=== PATIENT | female | born 1955 | race Caucasian/White ===

== ENCOUNTER 2022-01-04 15:08 | Outpatient (RCR) | payer MEDICARE, MEDICAID, SELFPAY | END 2022-01-04 15:10 | disposition home or self-care (01) | LOC: OT 15:08 | PROVIDERS: PCP Nurse Practitioner Family; Visit Provider Nurse Practitioner Family | DX: S62.102S Fracture of unspecified carpal bone, left wrist, sequela (principal) | CPT/HCPCS: 97166 ==

== ENCOUNTER → 2022-01-24 15:06 | Outpatient (CLI) | payer MEDICARE, MEDICAID, SELFPAY ==
--- NOTE | 2022-01-24 15:32 | CA_ITS ---
APPROVED REPORT EXAM: Comprehensive 2D, Doppler, and color-flow Echocardiogram Color Matcher: Lizzy Jimenez RT(R) Ht: 5 ft 2 in Wt: 210lbs BSA: 1.95 BP: 150/70 mmHg Indications: atypical angina, dyspnea, cp, COPD, smoker, palpitations, HTN, DM, SOB, ABN EKG, dizziness, hx DVT, near syncope 2D Dimensions LVOT 2.06 cm (M/F) 1.5-2.5 LA Volume 40.60 mL LA Volume Index 20.82 mL/m2 (M/F) 16-34 M-Mode Dimensions RVDd 2.27 cm (0.9-2.6) LA Diam 3.49 cm (1.9-4.0) LVDd 4.98 cm (3.5-5.7) Ao Diam 3.19 cm (2.0-3.7) LVDs 3.97 cm (3.5-5.7) IVSd 1.36 cm (0.6-1.1) PWd 1.42 cm (0.6-1.1) EF (Teich) 41.20% FS 20.30% EDV (Teich) 117.10 mL ESV (Teich) 68.80 mL Left Ventricle Left atrium is mildly enlarged, left ventricle is normal size, mild concentric left ventricular hypertrophy, estimated ejection fraction 55% with no regional wall motion abnormality, diastolic parameters are inconclusive. Right Ventricle Right atrium and right ventricle are mildly enlarged with normal contractility. Aortic Valve Aortic valve is thickened and calcified without aortic stenosis or aortic insufficiency. Mitral Valve Mitral valve has mitral annular calcification, there is no mitral stenosis, there is mild mitral regurgitation. Tricuspid Valve Tricuspid valve is grossly normal, there is mild tricuspid regurgitation, tricuspid regurgitation jet velocity is inadequate for calculation of the right ventricular systolic pressure. Pulmonic Valve Pulmonic valve is poorly visualized. Great Vessels Aortic root is normal size. Inferior vena cava is poorly visualized. Pericardium No significant pericardial effusion noted. Conclusion 1. Mild biatrial enlargement, normal left ventricular size, mild concentric left ventricular hypertrophy, estimated ejection fraction 55% with no regional wall motion abnormality, diastolic parameters are inconclusive. 2. Mildly enlarged right ventricle with normal contractility. 3. Mild mitral and tricuspid regurgitation. 4. No significant pericardial effusion noted. 5. Inferior vena cava is poorly visualized. Electronically signed by : Jose Day MD 01/25/2022 06:56:46
== END ==
PROVIDERS: PCP Nurse Practitioner Family; Visit Provider Nurse Practitioner Family
DX: E78.5 Hyperlipidemia, unspecified (principal); I10 Essential (primary) hypertension; I20.8 Other forms of angina pectoris; R06.00 Dyspnea, unspecified; R42 Dizziness and giddiness; R94.31 Abnormal electrocardiogram [ECG] [EKG]; Z79.01 Long term (current) use of anticoagulants; Z86.718 Personal history of other venous thrombosis and embolism
CPT/HCPCS: 93306

== ENCOUNTER → 2022-02-08 12:39 | Outpatient (CLI) | payer MEDICARE, MEDICAID, SELFPAY ==
--- NOTE | 2022-02-08 | CA_ITS ---
APPROVED REPORT Exam: Pharmacologic Technologist: Mary Amador, Ht: 5 ft 2 in Wt: 210 lbs BSA: 1.95 m2 HR: 98 bpm BP: 181/90 mmHg Rhythm: NSR, POOR R WAVE PROGRESSION, OLD SEPTAL SD Medical History Medical History: HTN, Hyperlipidemia Medications: Omeprazole,,,,, Gabapentin,,,,, Losartan,,,,, Atorvastatin,,,,, Vit D3,,,,, Zolpidem,,,,, OxYCODONE,,,,, Tizanidine,,,,, ElIQUIS,,,,, Hydroxyzine HCI,,,,, Allergies: PENICILLIN, VANCOMYCIN, PIPERACILLIN, TAZOBACTAM Cardiac Risk Factors: HTN, Hyperlipidemia Stress Test Details Test: LEXISCAN HR Resting HR: 91 bpm Max Heart Rate (APMHR): 155.950096 bpm Max HR Achieved: 111 bpm Target HR (85% APMHR): 131.942114 bpm % of APMHR: 71.61 Recovery HR: 102 bpm BP Resting BP: 181/90 mmHg Max BP: 181/90 mmHg Recovery BP: 161.0/80.0 mmHg ECG Resting ECG: NSR, POOR R WAVE PROGRESSION, OLD SEPTAL SD Clinical Exercise duration: 04:02 min Highest Stage Achieved: Stress ECG Conclusion SOA, MALAISE, MILD HEADACHE. NO CP. OCC PAC NO SIGNIFICANT CHANGES UNREMARKABLE LEXISCAN STRESS MYOVIEW IMAGES REPORTED SEPARATELY Test Summary REST 04:34 . . 91 . 181/ 90 . . Stage 1 01:00 . . 109 . . . . Stage 2 01:00 . . 105 . 157/ 68 . . Stage 3 01:00 . . 103 . 146/ 64 . . Stage 4 01:00 . . 105 . 144/ 67 . . Stage 4 01:02 . . 104 . 144/ 67 . Stop exercise at 04:02 RECOVERY 01:00 . . 104 . . . . RECOVERY 02:00 . . 104 . 155/ 75 . . RECOVERY 03:00 . . 102 . 161/ 80 . . RECOVERY 03:38 . . 101 . 161/ 80 . . Electronically signed by : Jose Day MD 02/08/2022 19:52:38
--- NOTE | 2022-02-08 12:42 | NM_ITS ---
APPROVED REPORT Exam: Nuclear Stress Test Indication: chest pain..short of breath Patient Location: Outpatient Stress Tech: Mary Amador NM Tech:Flavia Nayak ARRT, RT (R)(N) Ht: 5 ft 2 in Wt: 213 lbs Bra Size: 42c HR: 91 bpm BP: 181/90 mmHg BSA: 1.96 m2 TID: 1.17 BMI: 38.9 History: chest pain..short of breath Procedure: Patient received a 0.4 mg of intravenous Lexiscan, resting heart rate 91 bpm, resting blood pressure 181/90 mmHg, with Lexiscan maximum heart rate achived was 111 bpm which is Less than 85 % of the maximum predicted heart rate and blood pressure was 181/90 mmHg. With Lexiscan, patient denied any complaint of chest pain. patient was unable to lay on her belly for prone images Electrocardiogram Resting electrocardiogram showed sinus rhythm, with Lexiscan there is less than 1.[address] segment depression noted from the baseline EKG. The EKG portion of the Lexiscan is nondiagnostic. Cardiac Stress and Resting SPECT Images: Cardiac Stress and Resting SPECT images were obtained using technetium 99m Myoview 32.6 mCi stress and 9.81 mCi at rest. Gated SPECT for analysis of segmental wall motion and calculation of the ejection fraction also done. Cardiac stress and rest SPECT images show uniform myocardial activity without segmental perfusion abnormality, computer derived ejection fraction is 55% with no regional wall motion abnormality, right ventricle is normal size and contractility. Conclusion: 1. The EKG portion of the Lexiscan is nondiagnostic. 2. No scintigraphic evidence of reversible ischemia seen computer derived ejection fraction 55% with no regional wall motion abnormality, right ventricle is normal size and contractility. 3. Normal Lexiscan Myoview study. Electronically signed by : Jose Day MD 02/08/2022 19:57:41
== END ==
PROVIDERS: PCP Nurse Practitioner Family; Visit Provider Nurse Practitioner Family
DX: E78.5 Hyperlipidemia, unspecified (principal); I10 Essential (primary) hypertension; I20.8 Other forms of angina pectoris; R06.00 Dyspnea, unspecified; R42 Dizziness and giddiness; R94.31 Abnormal electrocardiogram [ECG] [EKG]; Z79.01 Long term (current) use of anticoagulants; Z86.718 Personal history of other venous thrombosis and embolism
CPT/HCPCS: 78452; 93017; A9502; J2785

== ENCOUNTER → 2022-05-17 11:12 | Outpatient (CLI) | payer MEDICARE, MEDICAID, SELFPAY ==
--- NOTE | 2022-05-17 11:56 | XR_ITS ---
FINAL REPORT TECHNIQUE: Chest PA & Lateral CLINICAL HISTORY: CHF, pain lt side of chest FINDINGS: 2 views of the chest were performed. The heart size is normal. The mediastinum is within normal limits. . The lungs are underinflated. There is perihilar scarring or atelectasis. There are no pleural effusions. There is no pneumothorax. The bony thorax appears intact. IMPRESSION: Perihilar scarring or atelectasis. Reviewed, Interpreted and Dictated by Edmar Paige MD Transcribed by Iglesia Duran Authenticated and [facility]
[2022-05-17 12:24] LABS: Basophils % 0.5 % (0.1-2.0); Eosinophils # 0.5 K/mm3 (0.0-0.4); Eosinophils % 6.8 % (0.1-12.0); Hematocrit 29.4 % (37.0-47.0); Hemoglobin 8.7 g/dL (12.2-16.2); Lymphocytes # 1.4 K/mm3 (0.7-4.5); Lymphocytes % 20.6 % (10-50); Mean Corpuscular HGB Conc 29.5 g/dL (31.8-35.4); Mean Corpuscular Hemoglobin 22.5 pg (27.0-31.2); Mean Corpuscular Volume 76.4 fl (81-99); Mean Platelet Volume 8.6 fl (7.4-10.4); Monocytes # 4.9 K/mm3 (0.1-1.0); Monocytes % 70.2 % (1.7-9.3); Neutrophils # 0.1 K/mm3 (1.8-7.8); Platelet Count 210 K/mm3 (142-424); Red Blood Count 3.85 M/mm3 (4.20-5.40); Red Cell Distribution Width 26.5 % (11.5-17.5)
[2022-05-17 12:27] LABS: MANUAL DIFFERENTIAL MANUAL DIFFERENTIAL (MANUAL DIFF); Neutrophils % 1.9 % (37.0-80.0)
[2022-05-17 12:31] LABS: Eosinophils % 3 % (0-3); Lymphocytes % 14 % (10-50); Monocytes % 5 % (2-9); Neutrophils % 78 % (42-76); Total Cells Counted 100
[2022-05-17 12:32] LABS: Anisocytosis 1+; Hypochromasia 1+; Microcytosis 1+; Ovalocytes 1+; Platelet Estimate Normal; Poikilocytosis 1+
== END ==
PROVIDERS: PCP Family Medicine; Visit Provider Family Medicine
DX: I50.9 Heart failure, unspecified (principal); D50.0 Iron deficiency anemia secondary to blood loss (chronic)
CPT/HCPCS: 36415; 71046; 85007; 85025

== ENCOUNTER 2022-06-07 15:00 | Outpatient (RCR) | payer MEDICARE, MEDICAID, SELFPAY | END 2022-06-07 15:05 | disposition home or self-care (01) | LOC: PT 15:00 | PROVIDERS: PCP Internal Medicine Cardiovascular Disease; Visit Provider Family Medicine | DX: L03.116 Cellulitis of left lower limb (principal); L03.115 Cellulitis of right lower limb | CPT/HCPCS: 97140; 97163; 97164 ==

== ENCOUNTER 2022-12-31 17:00 | Observation (INO) | payer MEDICARE, MEDICAID, SELFPAY ==
[2022-12-31] VITALS (13 sets, daily range): BP systolic 86–158; BP diastolic 52–92; PULSE 78–92; RESP 11–20; TEMP 36.7–37; O2SAT 87–98; BMI 35.6; BMI 36.6
--- NOTE | 2022-12-31 17:06 | ECG_ITS ---
APPROVED REPORT Exam: Resting ECG HR:82 bpm ECG Measurements Heart Rate 82 AXES [place] 164 P 62 QRSd 112 QRS -61 QT 410 T 48 QTc 449 Conclusion SINUS RHYTHM LEFT AXIS DEVIATION [QRS AXIS < -30] INCOMPLETE RIGHT BUNDLE BRANCH BLOCK [90+ ms QRS DURATION, TERMINAL R IN V1/V2, 40+ ms S IN I/aVL/V4/V5/V6] MINIMAL VOLTAGE CRITERIA FOR LVH, CONSIDER NORMAL VARIANT [MEETS CRITERIA IN ONE OF: R(aVL), S(V1), R(V5), R(V5/V6)+S(V1)] ABNORMAL ECG UNCONFIRMED REPORT Electronically signed by : Yash Nieto MD 01/02/2023 17:51:21
--- NOTE | 2022-12-31 17:23 | PC.NURSE ---
DR GUTIERREZ MADE AWARE OF B/P
[2022-12-31 17:27] LABS: POC Glucose,Bedside 154 (70-110)
--- NOTE | 2022-12-31 17:38 | XR_ITS ---
PROCEDURE INFORMATION: Exam: XR Chest Exam date and time: 12/31/2022 6:14 PM Age: 67 years old Clinical indication: Other: Weakness TECHNIQUE: Imaging protocol: Radiologic exam of the chest. Views: 1 view. COMPARISON: CR XR CHEST 2V 05/17/2022 12:00 PM FINDINGS: Lungs: Unremarkable. No consolidation. Pleural spaces: Unremarkable. No pleural effusion. No pneumothorax. Heart/Mediastinum: Unremarkable. No cardiomegaly. Bones/joints: Unremarkable. IMPRESSION: No acute findings.
[2022-12-31 17:44] LABS: Microscopic, Urine URINE MICROSCOPIC (MICROSCOPIC)
[2022-12-31 17:49] LABS: Basophils % 0.4 % (0.1-2.0); Eosinophils # 0.3 K/mm3 (0.0-0.4); Eosinophils % 3.2 % (0.1-12.0); Hematocrit 37.1 % (37.0-47.0); Hemoglobin 12.6 g/dL (12.2-16.2); Lymphocytes # 2.6 K/mm3 (0.7-4.5); Lymphocytes % 30.5 % (10-50); Mean Corpuscular HGB Conc 33.8 g/dL (31.8-35.4); Mean Corpuscular Hemoglobin 32.8 pg (27.0-31.2); Mean Corpuscular Volume 96.8 fl (81-99); Mean Platelet Volume 9.1 fl (7.4-10.4); Monocytes # 4.9 K/mm3 (0.1-1.0); Monocytes % 58.4 % (1.7-9.3); Neutrophils # 0.6 K/mm3 (1.8-7.8); Platelet Count 177 K/mm3 (142-424); Red Blood Count 3.84 M/mm3 (4.20-5.40); White Blood Count 8.4 K/mm3 (4.8-10.8)
[2022-12-31 17:51] LABS: Chloride 106 mmol/L (98-107); Potassium 3.3 mmoL/L (3.5-5.1); Sodium 139 mmol/L (136-145)
[2022-12-31 17:51] LABS: Appearance,Urine CLEAR (Clear); Blood, Urine Negative (Negative); Color,Urine YELLOW (Yellow); Glucose,Urine (UA) Negative (Negative); Ketones,Urine TRACE (Negative); Leukocyte Esterase,Urine TRACE (Negative); Nitrate,Urine Negative (Negative); Protein,Urine Negative (Negative); Specific Gravity, Urine 1.025 (1.005-1.030); Urobilinogen,Urine 0.2 EU/dl (0.2)
[2022-12-31 17:54] LABS: Anion Gap 7.3 mEq/L (5-15); Blood Urea Nitrogen 18 mg/dl (7-17); Carbon Dioxide 29 mmol/L (22.0-30.0); Creatinine Clearance Estimated 77 mL/min (50-200); Estimated Glomerular Filt Rate 84 ml/min (>60); GFR (African American) 101 ML/MIN (>60); Lipase 140 U/L (23-300)
[2022-12-31 17:55] LABS: Calcium 8.4 mg/dl (8.4-10.2); Glucose 149 mg/dl (74-100)
--- NOTE | 2022-12-31 17:58 | PC.NURSE ---
RAD at BS
--- NOTE | 2022-12-31 17:59 | HMH.EDGENADL ---
Discharge Plan Disposition Patient Disposition: Admitted Clinical Impressions Clinical Impression: Hernia Discharge ED Provider: Jerrell Padilla General Adult HPI General Chief complaint: Abdominal Pain Stated complaint: weak, vision fading Time Seen by Provider: 12/31/22 17:08 Mode of Arrival: Wheelchair Limitations: No Limitations Description of Symptoms (Recalled from ER Triage Doc. by RN): PT BROUGHT VIA PV FOR ABDOMINAL PAIN AND CRAMPING THAT STARTED THIS AFTERNOON. PT REPORTS SHE WENT TO BR TO VOID, HAD NEAR SYNCOPAL EPISODE. C/O H/A AND VISION FADING REPORTS HX OF STROKE TO LEFT EYE PT MOVES ALL EXTREMITIES. FACE SYMMETRICAL History of Present Illness HPI narrative: The patient presents with chief complaints of stomach cramps and vision issues. She reports experiencing abdominal pain and pressure, which began around 3 o'clock. The patient describes the pain as being located across her abdomen, with the right side feeling hard. She also mentions a new darkening of the skin in the middle of her abdomen. The patient has a known history of hernia. The patient experienced an urge to have a bowel movement but was only able to pass urine. She reports feeling weak and having her vision fade, turning rodriguez. 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 The patient denies any vomiting but believes she was able to pass some gas. She has a medical history of diabetes, hypertension, high cholesterol, anxiety, deep vein thrombosis in the left leg, retina issue in the left eye, weight loss surgery, hysterectomy, , and a broken left wrist. The patient is currently on Eliquis for her DVT and reports no missed doses. Related Data Home Medications Medication Instructions Recorded Confirmed apixaban 5 mg tablet (Eliquis) 5 mg PO BID 01/03/22 10/24/22 atorvastatin 20 mg tablet 20 mg PO DAILY 01/03/22 10/24/22 cholecalciferol (vitamin D3) 1,250 1,250 mcg PO QMONTH 01/03/22 10/24/22 mcg (50,000 unit) capsule hydroxyzine HCl 25 mg tablet 25 mg PO BID PRN 01/03/22 10/24/22 omeprazole 20 mg capsule,delayed 20 mg PO DAILY 01/03/22 10/24/22 release tizanidine 4 mg capsule 4 mg PO TID PRN 01/03/22 10/24/22 gabapentin 600 mg tablet 600 mg PO TID 01/05/22 10/24/22 albuterol sulfate 90 mcg/actuation 2 puff inhalation Q6H PRN 10/24/22 10/24/22 aerosol inhaler budesonide 160 mcg-glycopyr 9 2 inh inhalation BID 10/24/22 10/24/22 mcg-formot 4.8 mcg/actuation HFA inhaler (Breztri Aerosphere) ferrous sulfate 325 mg (65 mg 325 mg PO Q OTHER DAY 10/24/22 10/24/22 iron) tablet furosemide 20 mg tablet (Lasix) 20 mg PO DAILY PRN 10/24/22 10/24/22 metformin 500 mg tablet 500 mg PO DAILY 10/24/22 10/24/22 metoprolol succinate 25 mg 25 mg PO DAILY 10/24/22 10/24/22 tablet,extended release 24 hr montelukast 10 mg tablet mg PO 12/27/22 12/27/22 Previous Rx's Medication Instructions Recorded losartan 100 mg tablet 100 mg PO DAILY #90 tabs 02/16/22 Allergies Allergy/AdvReac Type Severity Reaction Status Date / Time Penicillins AdvReac Mild rash/itchin Verified 12/27/22 10:51 g vancomycin AdvReac Mild rash/itchin Verified 12/27/22 10:51 g piperacillin [From Zosyn] AdvReac rash/itchin Verified 12/27/22 10:51 g tazobactam [From Zosyn] AdvReac rash/itchin Verified 12/27/22 10:51 g PFSH PFSH Disclaimer: The information contained in this section may have been updated after the patient was seen, as this information can be updated by other users. Medical History Abnormal electrocardiogram [ECG] [EKG] Anxiety Atypical angina Dizziness Dyspnea Essential (primary) hypertension GERD with esophagitis History of DVT (deep vein thrombosis) HLD (hyperlipidemia) HTN (hypertension) Hyperlipidemia, unspecified Neuropathy On continuous oral a
[2022-12-31 18:07] LABS: Troponin I 0.01 ng/ml (0.00-0.034)
[2022-12-31 18:07] LABS: Bilirubin,Urine 1+ (Negative)
[2022-12-31 18:10] LABS: Neutrophils % 7.4 % (37.0-80.0)
[2022-12-31 18:11] LABS: MANUAL DIFFERENTIAL MANUAL DIFFERENTIAL (MANUAL DIFF)
--- NOTE | 2022-12-31 18:12 | CT_ITS ---
PROCEDURE INFORMATION: Exam: CTA Abdomen and Pelvis With Contrast Exam date and time: 12/31/2022 6:34 PM Age: 67 years old Clinical indication: Abdominal pain; Generalized; Additional info: HX dvt, hernia, concern for strangulation vs ische TECHNIQUE: Imaging protocol: Computed tomographic angiography of the abdomen and pelvis with contrast. Exam focused on the arteries. 3D rendering (Not supervised by radiologist): MIP and/or 3D reconstructed images were created by the technologist. Radiation optimization: All CT scans at this facility use at least one of these dose optimization techniques: automated exposure control; mA and/or kV adjustment per patient size (includes targeted exams where dose is matched to clinical indication); or iterative reconstruction. Contrast material: ISO 370; Contrast volume: 75 ml; Contrast route: INTRAVENOUS (IV); REPORTING DATA: Count of CT and Cardiac NM exams in prior 12 months: This patient has received 0 known CTs and 0 known cardiac nuclear medicine studies in the 12 months prior to the current study. COMPARISON: CR XR CHEST PORTABLE 12/31/2022 6:14 PM FINDINGS: Aorta: No aortic aneurysm. No aortic dissection. Celiac trunk and mesenteric arteries: No occlusion or significant stenosis. Renal arteries: No occlusion or significant stenosis. Right iliac arteries: No occlusion or significant stenosis. Left iliac arteries: No occlusion or significant stenosis. Liver: No mass. Gallbladder and bile ducts: Gallbladder is dilated measuring 5 cm in transverse dimension by 12 cm in length filled with stones. No evident wall thickening or adjacent fat stranding. No evident bile duct dilatation. Pancreas: Unremarkable. No mass. No ductal dilation. Spleen: Unremarkable. No splenomegaly. Adrenal glands: A 20 mm benign-appearing predominantly fat density right adrenal nodule compatible with myelolipoma noted. No follow-up of this lesion advised. Kidneys and ureters: Subcentimeter low-density lesion in the anterior mid to upper left kidney and in the inferior medial right kidney too small to characterize but likely cysts. No follow-up of these lesions advised. Indeterminate 14 mm low-density lesion in the inferior lateral left kidney centered on axial image 70 of series 5 with a density of 26. Kidneys and ureters otherwise unremarkable with no obstructing stones or uropathy. Stomach and bowel: Gastric sleeve procedure. GI tract structures otherwise unremarkable with no evident wall thickening allowing for incomplete distention. Appendix: Appendix is normal. No evidence of appendicitis. Intraperitoneal space: Unremarkable. No free air. No significant fluid collection. Lymph nodes: Enlarged partially calcified left pelvic lymph nodes adjacent to the external iliac vessels largest along the anterior left pelvic sidewall measuring 30 x 10 mm noted. Urinary bladder: Bladder decompressed with Lugo. Reproductive: Unremarkable as visualized. Bones/joints: Ssgqrzhu-[id number] old-appearing compression fracture of T12 and moderate old-appearing superior endplate compression fracture of L5. Bony structures otherwise unremarkable. Soft tissues: A midline upper pelvis fat containing hernia measuring 6.7 cm noted centered on axial image 121 of series 5. The neck of the hernia measures 1.5 cm. A upper left pelvis fat containing hernia measuring 8.3 cm centered on axial image 133. The neck of this hernia measures 1.3 cm. More superiorly on the left is a fat containing upper pelvic wall hernia measuring 5.5 cm centered on axial image 101 with neck of the hernia measuring 1.5 cm noted. [id number]-[id number] body wall edema compatible with anasarca. IMPRESSION: 1. Dilated stone filled gallbladder. Further assessment with ultr
[2022-12-31 18:14] LABS: Bacteria,Urine Trace /lpf; WBC,Urine Occasional #/hpf (0-3)
--- NOTE | 2022-12-31 18:25 | PC.NURSE ---
PT TO CT
[2022-12-31 18:34] LABS: Lymphocytes % 32 % (10-50); Monocytes % 3 % (2-9); Neutrophils % 65 % (42-76); Total Cells Counted 100
[2022-12-31 18:37] LABS: Hypochromasia 1+; Platelet Estimate Normal
--- NOTE | 2022-12-31 18:45 | PC.NURSE ---
PT RETURNED FROM CT
--- NOTE | 2022-12-31 18:56 | PC.NURSE ---
Pt provided with pillow. No other needs voiced.
--- NOTE | 2022-12-31 20:57 | PC.NURSE ---
on phone with general surgery
--- NOTE | 2022-12-31 21:16 | EXP.HP ---
History of Present Illness *Admission Date: 12/31/22 *Reason for visit:: abd pain *History of present illness: This is a 67 yo F obese with PMHx of CAD, Chronic DVT on eliquis, COPD, current smoker, HTN, HLD, Sleep apnea, and opioid dependance coming to ER for evaluation of lower right abdominal pain. Patient initially described as cramps, stated that had previous history of inguinal hernias and multiples repairs. Patient report that during the day today pain increased significantly. She also concerning to increased mass in the lower right inguinal site, everything began around 3 o'clock. The patient describes the pain as being located across her abdomen, with the right side feeling hard. She also mentions a new darkening of the skin in the middle of her abdomen. there is also an episode of vision fade and fainting while coughing or increasing abdominal pressure while pushing out urine, discomfort made patient unable to push out stools. decided to come to the hospital. Admitted for furthe management and treatment. [facility] Disclaimer: The information contained in this section may have been updated after the patient was seen, as this information can be updated by other users. Medical History Abnormal electrocardiogram [ECG] [EKG] Anxiety Atypical angina Dizziness Dyspnea Essential (primary) hypertension GERD with esophagitis History of DVT (deep vein thrombosis) HLD (hyperlipidemia) HTN (hypertension) Hyperlipidemia, unspecified Neuropathy On continuous oral anticoagulation Primary insomnia Surgical History H/O wrist surgery H/O: hysterectomy Social History (Updated 12/31/22 @ 22:11 by Agnes Chappell RN) Smoking Status: Current every day smoker alcohol intake: never current occupational status: other Travel in the last 8 weeks: None Review of Systems Review of Systems Review of systems:: pertinent systems reviewed and negative unless documented below Meds Home Medications and Allergies Home Medications Medication Instructions Recorded Confirmed Type apixaban 5 mg tablet (Eliquis) 5 mg PO BID 01/03/22 10/24/22 History atorvastatin 20 mg tablet 20 mg PO DAILY 01/03/22 10/24/22 History cholecalciferol (vitamin D3) 1,250 1,250 mcg PO QMONTH 01/03/22 10/24/22 History mcg (50,000 unit) capsule hydroxyzine HCl 25 mg tablet 25 mg PO BID PRN 01/03/22 10/24/22 History omeprazole 20 mg capsule,delayed 20 mg PO DAILY 01/03/22 10/24/22 History release tizanidine 4 mg capsule 4 mg PO TID PRN 01/03/22 10/24/22 History gabapentin 600 mg tablet 600 mg PO TID 01/05/22 10/24/22 History losartan 100 mg tablet 100 mg PO DAILY #90 tabs 02/16/22 10/24/22 Rx albuterol sulfate 90 mcg/actuation 2 puff inhalation Q6H PRN 10/24/22 10/24/22 History aerosol inhaler budesonide 160 mcg-glycopyr 9 2 inh inhalation BID 10/24/22 10/24/22 History mcg-formot 4.8 mcg/actuation HFA inhaler (Breztri Aerosphere) ferrous sulfate 325 mg (65 mg 325 mg PO Q OTHER DAY 10/24/22 10/24/22 History iron) tablet furosemide 20 mg tablet (Lasix) 20 mg PO DAILY PRN 10/24/22 10/24/22 History metformin 500 mg tablet 500 mg PO DAILY 10/24/22 10/24/22 History metoprolol succinate 25 mg 25 mg PO DAILY 10/24/22 10/24/22 History tablet,extended release 24 hr montelukast 10 mg tablet mg PO 12/27/22 12/27/22 History New Prescriptions to Start Prescriptions: Allergies Allergy/AdvReac Type Severity Reaction Status Date / Time Penicillins AdvReac Mild rash/itchin Verified 12/27/22 10:51 g vancomycin AdvReac Mild rash/itchin Verified 12/27/22 10:51 g piperacillin [From Zosyn] AdvReac rash/itchin Verified 12/27/22 10:51 g tazobactam [From Zosyn] AdvReac rash/itchin Verified 12/27/22 10:51 g Exam Data for Last 24 hours Vital signs and Labs for Last 24 Hours: Temp Pulse Resp BP Pulse Ox O2 Del
[2022-12-31 21:28] LABS: Troponin I < 0.01 ng/ml (0.00-0.034)
--- NOTE | 2022-12-31 22:49 | PC.NURSE ---
Patient arrived to floor via stretcher at 21:50.
[2023-01-01 00:25] LABS: Troponin I < 0.01 ng/ml (0.00-0.034)
--- NOTE | 2023-01-01 03:49 | PC.NURSE ---
Pt is alert and oriented x 4, Pt currently has LR @ 50 mL/hr and is tolerating it well. Pt has a small blister to her left lower extremity which is wrapped with a non-adherent pad and gauze. Pt is due for hernia surgery today and has had a bed bath in preparation. Pt has no complaints of pain or discomfort and denies needs at this time.
[2023-01-01 04:00] VITALS: BP 130/66; PULSE 80; RESP 20; TEMP 36.7; O2SAT 87
[2023-01-01 05:38] VITALS: PULSE 80
[2023-01-01 07:12] LABS: Alanine Aminotransferase 13 U/L (12-78); Albumin Level 2.8 g/dl (3.5-5.0); Alkaline Phosphatase 63 U/L (38-126); Anion Gap 5.6 mEq/L (5-15); Aspartate Amino Transferase 28 U/L (14-36); Bilirubin,Total 0.2 mg/dl (0.2-1.3); Blood Urea Nitrogen 14 mg/dl (7-17); Calcium 8.2 mg/dl (8.4-10.2); Carbon Dioxide 29 mmol/L (22.0-30.0); Chloride 107 mmol/L (98-107); Creatinine Clearance Estimated 79 mL/min (50-200); Estimated Glomerular Filt Rate 123 ml/min (>60); GFR (African American) 149 ML/MIN (>60); Globulin 2.7 g/dL (1.3-3.2); Glucose 91 mg/dl (74-100); Magnesium 1.1 mg/dl (1.6-2.3); Potassium 3.6 mmoL/L (3.5-5.1); Sodium 138 mmol/L (136-145); Total Protein,Serum 5.5 g/dl (6.3-8.2)
--- NOTE | 2023-01-01 07:55 | EXP.SURG.CON ---
History of Present Illness *Admission Date: 12/31/22 *Reason for visit:: Incarcerated hernia *History of present illness: This is a 67-year-old female seen in consultation from the primary service after evaluation in the emergency department. She was diagnosed with incarcerated complex abdominal wall hernia with periumbilical mass with tenderness to palpation and overlying skin changes . The patient reports a long history of hernia with chronic incarceration. She states that it got worse yesterday . The overall size dramatically increased and the area became very tender. However, she now states overnight things have improved...it is now back to normal . Forwarded from admission H&P: This is a 67 yo F obese with PMHx of CAD, Chronic DVT on eliquis, COPD, current smoker, HTN, HLD, Sleep apnea, and opioid dependance coming to ER for evaluation of lower right abdominal pain. Patient initially described as cramps, stated that had previous history of inguinal hernias and multiples repairs. Patient report that during the day today pain increased significantly. She also concerning to increased mass in the lower right inguinal site, everything began around 3 o'clock. The patient describes the pain as being located across her abdomen, with the right side feeling hard. She also mentions a new darkening of the skin in the middle of her abdomen. there is also an episode of vision fade and fainting while coughing or increasing abdominal pressure while pushing out urine, discomfort made patient unable to push out stools. decided to come to the hospital. Admitted for furthe management and treatment. [facility] Disclaimer: The information contained in this section may have been updated after the patient was seen, as this information can be updated by other users. Medical History Abnormal electrocardiogram [ECG] [EKG] Anxiety Atypical angina Dizziness Dyspnea Essential (primary) hypertension GERD with esophagitis History of DVT (deep vein thrombosis) HLD (hyperlipidemia) HTN (hypertension) Hyperlipidemia, unspecified Neuropathy On continuous oral anticoagulation Primary insomnia Surgical History H/O wrist surgery H/O: hysterectomy Social History (Updated 12/31/22 @ 22:11 by Agnes Chappell RN) Smoking Status: Current every day smoker alcohol intake: never current occupational status: other Travel in the last 8 weeks: None Meds Home Medications and Allergies Home Medications Medication Instructions Recorded Confirmed Type apixaban 5 mg tablet (Eliquis) 5 mg PO BID 01/03/22 10/24/22 History atorvastatin 20 mg tablet 20 mg PO DAILY 01/03/22 10/24/22 History cholecalciferol (vitamin D3) 1,250 1,250 mcg PO QMONTH 01/03/22 10/24/22 History mcg (50,000 unit) capsule hydroxyzine HCl 25 mg tablet 25 mg PO BID PRN 01/03/22 10/24/22 History omeprazole 20 mg capsule,delayed 20 mg PO DAILY 01/03/22 10/24/22 History release tizanidine 4 mg capsule 4 mg PO TID PRN 01/03/22 10/24/22 History gabapentin 600 mg tablet 600 mg PO TID 01/05/22 10/24/22 History losartan 100 mg tablet 100 mg PO DAILY #90 tabs 02/16/22 10/24/22 Rx albuterol sulfate 90 mcg/actuation 2 puff inhalation Q6H PRN 10/24/22 10/24/22 History aerosol inhaler budesonide 160 mcg-glycopyr 9 2 inh inhalation BID 10/24/22 10/24/22 History mcg-formot 4.8 mcg/actuation HFA inhaler (Breztri Aerosphere) ferrous sulfate 325 mg (65 mg 325 mg PO Q OTHER DAY 10/24/22 10/24/22 History iron) tablet furosemide 20 mg tablet (Lasix) 20 mg PO DAILY PRN 10/24/22 10/24/22 History metformin 500 mg tablet 500 mg PO DAILY 10/24/22 10/24/22 History metoprolol succinate 25 mg 25 mg PO DAILY 10/24/22 10/24/22 History tablet,extended release 24 hr montelukast 10 mg tablet mg PO 12/27/22 12/27/22 History New Prescriptions to Start Prescriptions: Allergie
[2023-01-01 08:00] VITALS: BP 130/64; PULSE 70; PULSE 75; RESP 18; TEMP 36.7; O2SAT 94; O2SAT 96
--- NOTE | 2023-01-01 09:58 | EXP.DC.SUM ---
General Admission date:: 12/31/22 Discharge date: 01/01/23 HPI HPI HPI: This is a 67-year-old female seen in consultation from the primary service after evaluation in the emergency department. She was diagnosed with incarcerated complex abdominal wall hernia with periumbilical mass with tenderness to palpation and overlying skin changes . The patient reports a long history of hernia with chronic incarceration. She states that it got worse yesterday . The overall size dramatically increased and the area became very tender. However, she now states overnight things have improved...it is now back to normal . Forwarded from admission H&P: This is a 67 yo F obese with PMHx of CAD, Chronic DVT on eliquis, COPD, current smoker, HTN, HLD, Sleep apnea, and opioid dependance coming to ER for evaluation of lower right abdominal pain. Patient initially described as cramps, stated that had previous history of inguinal hernias and multiples repairs. Patient report that during the day today pain increased significantly. She also concerning to increased mass in the lower right inguinal site, everything began around 3 o'clock. The patient describes the pain as being located across her abdomen, with the right side feeling hard. She also mentions a new darkening of the skin in the middle of her abdomen. there is also an episode of vision fade and fainting while coughing or increasing abdominal pressure while pushing out urine, discomfort made patient unable to push out stools. decided to come to the hospital. Admitted for furthe management and treatment. Hospital Course Hospital Course Hospital Course: 67 yo F obese with PMHx of CAD, Chronic DVT on eliquis, COPD, current smoker, HTN, HLD, Sleep apnea, and opiod dependance coming to ER for evaluation of lower right abdominal pain. Patient initially described as cramps, stated that had previous history of inguinal hernias and multiples repairs. During initial work up patient underwent into Abd CTA. That the imaging were independently reviewed. There is a concern for multiples pelvis abdominal wall fat-containing hernias. not signs of necrosis. Labs work consistent with mild hypokalemia. patient is hemodinamically stable. Discussed with ER provider after been consulted with general surgeon for possible surgical management. Agreed for admission. Plan as follow: -Multiples abdominal wall incarcerated hernias: retracted, seen by Surgery no surgical needs at this time, dc home and f/u as OP -Mild hypokalemia: replaced - Chronic bilateral lower extremity lymphedema: - stable Others chronic conditions reviewed: COPD, Sleep apnea, HTN, HLD, DVT: conditions are current stables, reconciled and resume home meds. Hold eliquis. Last dose day prior to admission monitor o2 sat oxygen as needed -tobacco user: smoking cessation education provided. Nicotine patch. Exam Data for Last 24 hours Vital signs and Labs for Last 24 Hours: Temp Pulse Resp BP Pulse Ox O2 Del Method O2 Flow Rate 98.1 F 75 18 130/64 94 L Room Air 2 01/01/23 08:00 01/01/23 08:00 01/01/23 08:00 01/01/23 08:00 01/01/23 08:00 01/01/23 08:00 01/01/23 06:32 Laboratory Results - last 24 hr 12/31/22 17:05: POC Glucose 154 H 12/31/22 17:17: WBC 8.4, RBC 3.84 L, Hgb 12.6, Hct 37.1, MCV 96.8, MCH 32.8 H, MCHC 33.8, RDW 15.0, Plt Count 177, MPV 9.1, Neut % (Auto) 7.4 L, Lymph % (Auto) 30.5, Navarro % (Auto) 58.4 H, Eos % (Auto) 3.2, Baso % (Auto) 0.4, Neut # (Auto) 0.6 L*, Lymph # (Auto) 2.6, Navarro # (Auto) 4.9 H, Eos # (Auto) 0.3, Baso # (Auto) 0.0, Total Counted 100, Neutrophils % (Manual) 65, Lymphocytes % (Manual) 32, Monocytes % (Manual) 3, Differential Comment , Platelet Estimate Normal, Hypochromasia 1+, Sodium 139, Potassium 3.3 L, Chloride 106, Carbon Dioxide 29, Anion Gap 7.3, BUN 18 H, Creatinine 0.70, Estimated Creat Clear 77, Estimated GFR 84, Est GFR ( Amer) 101, Glucose 149 H, Lactate 2.0, Calcium 8.4, Troponin
--- NOTE | 2023-01-01 10:31 | PC.NURSE ---
sutton discontinued. pt is sitting up to the chair. sba. room air saturation at rest was 87%.
--- NOTE | 2023-01-03 14:52 | CARE MANAGER ---
Attempted to contact patient related to hospital discharge x 2. Left voicemail message. LICHA Aguilar
== END 2023-01-01 13:12 | disposition home or self-care (01) ==
LOC: ER 17:57 → 2ND 21:21
PROVIDERS: Nurse Practitioner Family; Admitting Provider Internal Medicine; Emergency Provider Emergency Medicine; PCP Nurse Practitioner Family; Visit Provider Internal Medicine
DX: K45.0 Other specified abdominal hernia with obstruction, without gangrene (principal); E87.6 Hypokalemia; I89.0 Lymphedema, not elsewhere classified; F11.90 Opioid use, unspecified, uncomplicated; Z86.69 Personal history of other diseases of the nervous system and sense organs; J44.9 Chronic obstructive pulmonary disease, unspecified; E78.5 Hyperlipidemia, unspecified; I10 Essential (primary) hypertension; Z86.718 Personal history of other venous thrombosis and embolism; F17.210 Nicotine dependence, cigarettes, uncomplicated; Z79.01 Long term (current) use of anticoagulants; Z79.899 Other long term (current) drug therapy
CPT/HCPCS: 36415; 51702; 71045; 74174; 80048; 80053; 81001; 82962; 83605; 83690; 83735; 84484; 85007; 85025; 93005; 99285; G0378; J2405; Q9967

== ENCOUNTER 2023-01-03 14:30 | Outpatient (RCR) | payer MEDICARE, SELFPAY | END 2023-01-03 15:45 | disposition home or self-care (01) | LOC: PT 14:30 | PROVIDERS: PCP Nurse Practitioner Family; Visit Provider Surgery | DX: I89.0 Lymphedema, not elsewhere classified (principal); L97.921 Non-pressure chronic ulcer of unspecified part of left lower leg limited to breakdown of skin; F17.218 Nicotine dependence, cigarettes, with other nicotine-induced disorders; Z91.81 History of falling | CPT/HCPCS: 97140; 97163; 97164 ==

== ENCOUNTER → 2023-01-06 07:31 | Outpatient (CLI) | payer MEDICARE, MEDICAID, SELFPAY | PROVIDERS: PCP Nurse Practitioner Family; Visit Provider Internal Medicine Pulmonary Disease | DX: R06.09 Other forms of dyspnea (principal) | CPT/HCPCS: 94060; 94618; 94726; 94729 ==

== ENCOUNTER 2023-01-17 15:34 | Emergency (ER) | payer MEDICARE, MEDICAID, SELFPAY ==
[2023-01-17 15:34] VITALS: BP 143/94; PULSE 104; RESP 16; O2SAT 96; BMI 35.3
--- NOTE | 2023-01-17 15:43 | ECG_ITS ---
APPROVED REPORT Exam: Resting ECG HR:95 bpm ECG Measurements Heart Rate 95 AXES MN 168 P 48 QRSd 118 QRS -55 QT 384 T 75 QTc 436 Conclusion SINUS RHYTHM LEFT AXIS DEVIATION [QRS AXIS < -30] LEFT VENTRICULAR HYPERTROPHY AND ST-T CHANGE [VOLTAGE CRITERIA PLUS ST/T ABNORMALITY] POSSIBLE ANTEROSEPTAL MYOCARDIAL INFARCTION , OF INDETERMINATE AGE [30 ms Q WAVE IN V1-V4] ABNORMAL ECG UNCONFIRMED REPORT Electronically signed by : Yash Nieto MD 01/18/2023 17:12:06
--- NOTE | 2023-01-17 15:57 | CT_ITS ---
PROCEDURE INFORMATION: Exam: CT Head Without Contrast Exam date and time: 01/17/2023 4:35 PM Age: 67 years old Clinical indication: Speech disturbance; Additional info: Word finding difficulty x2d TECHNIQUE: Imaging protocol: Computed tomography of the head without contrast. Radiation optimization: All CT scans at this facility use at least one of these dose optimization techniques: automated exposure control; mA and/or kV adjustment per patient size (includes targeted exams where dose is matched to clinical indication); or iterative reconstruction. REPORTING DATA: Count of CT and Cardiac NM exams in prior 12 months: This patient has received [address] and 0 known cardiac nuclear medicine studies in the 12 months prior to the current study. COMPARISON: No relevant prior studies available. FINDINGS: Brain: There is no evidence of acute intracranial hemorrhage, extra-axial collection or locoregional mass effect. There are scattered hypodensities in the periventricular and subcortical white matter. The appearance is nonspecific, but most likely represents chronic small vessel disease in a person of this age Cerebral ventricles: The ventricles, sulci and cisterns are normal in size and configuration for patient's age. No hydrocephalus or midline structure shift Pituitary gland and sella: Sellar/parasellar structures, craniocervical junction and orbits are unremarkable Paranasal sinuses: Visualized sinuses are unremarkable. No fluid levels. Mastoid air cells: Visualized mastoid air cells are well aerated. Bones/joints: No calvarial fracture Soft tissues: Unremarkable. IMPRESSION: No acute intracranial abnormality. If focal neurological symptoms persist brain MRI can be obtained for better evaluation
--- NOTE | 2023-01-17 15:57 | HMH.EDGENADL ---
Discharge Plan Disposition Patient Disposition: Home, Self-Care Prescriptions Prescriptions: New magnesium oxide 400 mg magnesium capsule 400 mg PO HS Qty: 30 4RF potassium chloride 20 mEq tablet extended release 20 meq PO DAILY Qty: 30 4RF No Action Eliquis 5 mg tablet 5 mg PO BID cholecalciferol (vitamin D3) 1,250 mcg (50,000 unit) capsule 1,250 mcg PO QMONTH omeprazole 20 mg capsule,delayed release(DR/EC) 20 mg PO DAILY tizanidine 4 mg capsule 4 mg PO TID PRN atorvastatin 20 mg tablet 20 mg PO DAILY hydroxyzine HCl 25 mg tablet 25 mg PO BID PRN gabapentin 600 mg tablet 600 mg PO TID Patient Comments: TAKE 1 TABLET BY MOUTH THREE TIMES DAILY FOR 30 DAYS montelukast 10 mg tablet PO Patient Comments: TAKE 1 TABLET BY MOUTH ONCE DAILY IN THE EVENING losartan 100 mg tablet 100 mg PO DAILY Qty: 90 3RF metformin 500 mg tablet 500 mg PO DAILY ferrous sulfate 325 mg (65 mg iron) tablet 325 mg PO Q OTHER DAY furosemide [Lasix] 20 mg tablet 20 mg PO DAILY PRN metoprolol succinate 25 mg tablet extended release 24 hr 25 mg PO DAILY Bevespi Aerosphere 9-4.8 mcg HFA aerosol inhaler 2 puff inhalation BID 90 Days Qty: 10.7 3RF Referrals Follow up/Referrals: Debora Robles APRN [Primary Care Provider] - See instructions Brendan Mathis MD [Staff Physician] - See instructions Activity Restrictions/Add. Instructions Additional Instructions/Restrictions: Follow-up with hematology, they will further identify and characterize your blood count abnormalities. Call your family doctor to establish care for this visit to the emergency department and schedule follow-up within 48 hours to ensure improvement. If you have any worsening of your condition or any other concerning signs or symptoms, return to the emergency department or your primary care doctor for further evaluation. 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 Patient states that she has had word finding difficulty for about 2 days. Has not gotten better or worse. Does not member what she was doing when it started. Denies any other neurologic deficits. States that she recently had a diagnosis of strokes in her retina and cornea and are going to see neuro-mining detail draftsperson soon. Patient denies unilateral deficits, bowel or bladder dysfunction, any other vision changes. No falls. Patient has been taking her medications as prescribed. Related Data Home Medications Medication Instructions Recorded Confirmed apixaban 5 mg tablet (Eliquis) 5 mg PO BID 01/03/22 01/05/23 atorvastatin 20 mg tablet 20 mg PO DAILY 01/03/22 01/05/23 cholecalciferol (vitamin D3) 1,250 1,250 mcg PO QMONTH 01/03/22 01/05/23 mcg (50,000 unit) capsule hydroxyzine HCl 25 mg tablet 25 mg PO BID PRN 01/03/22 01/05/23 omeprazole 20 mg capsule,delayed 20 mg PO DAILY 01/03/22 01/05/23 release tizanidine 4 mg capsule 4 mg PO TID PRN 01/03/22 01/05/23 gabapentin 600 mg tablet 600 mg PO TID 01/05/22 01/05/23 ferrous sulfate 325 mg (65 mg 325 mg PO Q OTHER DAY 10/24/22 01/05/23 iron) tablet furosemide 20 mg tablet (Lasix) 20 mg PO DAILY PRN 10/24/22 01/05/23 metformin 500 mg tablet 500 mg PO DAILY 10/24/22 01/05/23 metoprolol succinate 25 mg 25 mg PO DAILY 10/24/22 01/05/23 tablet,extended release 24 hr montelukast 10 mg tab
--- NOTE | 2023-01-17 16:09 | PC.NURSE ---
patient placed on 2 liters of oxygen, reports she wears it at home when needed
[2023-01-17 16:30] VITALS: BP 145/75; PULSE 87; O2SAT 92
--- NOTE | 2023-01-17 16:45 | PC.NURSE ---
pt ambulatory with cane for assistance to restroom; no complications
--- NOTE | 2023-01-17 16:49 | PC.NURSE ---
UA sent to lab
[2023-01-17 17:00] VITALS: BP 149/78; PULSE 88; O2SAT 93
[2023-01-17 17:02] LABS: Microscopic, Urine URINE MICROSCOPIC (MICROSCOPIC)
[2023-01-17 17:07] LABS: Basophils # 0.1 K/mm3 (0-0.2); Basophils % 0.7 % (0.1-2.0); Eosinophils # 0.4 K/mm3 (0.0-0.4); Eosinophils % 4.9 % (0.1-12.0); Hematocrit 40.3 % (37.0-47.0); Lymphocytes # 2.3 K/mm3 (0.7-4.5); Lymphocytes % 29.4 % (10-50); Mean Corpuscular HGB Conc 32.2 g/dL (31.8-35.4); Mean Corpuscular Volume 99.3 fl (81-99); Mean Platelet Volume 9.6 fl (7.4-10.4); Monocytes # 4.4 K/mm3 (0.1-1.0); Monocytes % 55.8 % (1.7-9.3); Neutrophils # 0.7 K/mm3 (1.8-7.8); Platelet Count 196 K/mm3 (142-424); Red Blood Count 4.06 M/mm3 (4.20-5.40); Red Cell Distribution Width 14.6 % (11.5-17.5); White Blood Count 7.8 K/mm3 (4.8-10.8)
[2023-01-17 17:09] LABS: Chloride 103 mmol/L (98-107); Potassium 3.2 mmoL/L (3.5-5.1); Sodium 137 mmol/L (136-145)
[2023-01-17 17:09] LABS: Appearance,Urine CLEAR (Clear); Blood, Urine Negative (Negative); Color,Urine YELLOW (Yellow); Glucose,Urine (UA) Negative (Negative); Ketones,Urine TRACE (Negative); Leukocyte Esterase,Urine Negative (Negative); Nitrate,Urine Negative (Negative); Protein,Urine Negative (Negative)
[2023-01-17 17:11] LABS: Blood Urea Nitrogen 18 mg/dl (7-17); Creatinine Clearance Estimated 76 mL/min (50-200); Estimated Glomerular Filt Rate 100 ml/min (>60); GFR (African American) 121 ML/MIN (>60); Magnesium 1.1 mg/dl (1.6-2.3)
[2023-01-17 17:12] LABS: Alanine Aminotransferase 20 U/L (12-78); Albumin Level 3.6 g/dl (3.5-5.0); Albumin/Globulin Ratio 1.2 (1.1-1.8); Alkaline Phosphatase 88 U/L (38-126); Anion Gap 5.2 mEq/L (5-15); Aspartate Amino Transferase 39 U/L (14-36); Bilirubin,Total 0.3 mg/dl (0.2-1.3); Calcium 8.7 mg/dl (8.4-10.2); Carbon Dioxide 32 mmol/L (22.0-30.0); Globulin 3.1 g/dL (1.3-3.2); Glucose 162 mg/dl (74-100); Total Protein,Serum 6.7 g/dl (6.3-8.2)
[2023-01-17 17:13] LABS: Bilirubin,Urine 1+ (Negative)
[2023-01-17 17:21] LABS: NT Pro Brain Natriuretic Pep. 608 pg/mL (0-125)
[2023-01-17 17:22] LABS: Neutrophils % 9.1 % (37.0-80.0)
[2023-01-17 17:25] LABS: Troponin I < 0.01 ng/ml (0.00-0.034)
[2023-01-17 17:26] LABS: MANUAL DIFFERENTIAL MANUAL DIFFERENTIAL (MANUAL DIFF)
[2023-01-17 17:30] VITALS: BP 156/80; PULSE 88; O2SAT 92
[2023-01-17 17:32] LABS: Bacteria,Urine Trace /lpf; WBC,Urine Occasional #/hpf (0-3)
[2023-01-17 17:50] LABS: Eosinophils % 3 % (0-3); Lymphocytes % 19 % (10-50); Monocytes % 2 % (2-9); Neutrophils % 76 % (42-76); Total Cells Counted 100
[2023-01-17 17:52] LABS: Hypochromasia 1+; Ovalocytes 1+; Platelet Estimate Normal
[2023-01-17 18:01] VITALS: BP 142/71; PULSE 90; O2SAT 93
[2023-01-17 18:32] VITALS: BP 142/71; PULSE 87; RESP 16; TEMP 36.7; O2SAT 95
== END 2023-01-17 18:37 | disposition home or self-care (01) ==
PROVIDERS: Emergency Provider Emergency Medicine; PCP Nurse Practitioner Family
DX: D72.821 Monocytosis (symptomatic) (principal); E87.6 Hypokalemia; R47.89 Other speech disturbances; E83.42 Hypomagnesemia; J44.9 Chronic obstructive pulmonary disease, unspecified; F17.210 Nicotine dependence, cigarettes, uncomplicated; I25.119 Atherosclerotic heart disease of native coronary artery with unspecified angina pectoris; I11.9 Hypertensive heart disease without heart failure; E78.5 Hyperlipidemia, unspecified; I89.0 Lymphedema, not elsewhere classified; K21.9 Gastro-esophageal reflux disease without esophagitis; F41.1 Generalized anxiety disorder; Z86.718 Personal history of other venous thrombosis and embolism; Z79.01 Long term (current) use of anticoagulants
CPT/HCPCS: 70450; 80053; 81001; 83735; 83880; 84484; 85007; 85025; 93005; 96365; 99284

== ENCOUNTER → 2023-02-21 12:46 | Outpatient (CLI) | payer MEDICARE, MEDICAID, SELFPAY ==
--- NOTE | 2023-02-21 13:06 | MR_ITS ---
FINAL REPORT CLINICAL HISTORY: APHASIA. memory loss, confusion COMPARISON: none FINDINGS: Multiplanar MR imaging of the brain was performed without and with contrast. No ADC map images provided. There is no evidence of intracranial hemorrhage or mass. There is mild atrophy. There is no evidence of shift of the midline structures. There is moderate to extensive abnormal signal throughout the deep white matter. There is abnormal restricted diffusion extending to the posterior left frontal cortex and a curvilinear distribution probably related to acute ischemia. There is a punctate focus of abnormal restricted diffusion in the deep white matter of the right posterior parietal lobe probably related to a focus of acute ischemia. There is some gyriform enhancement in the posterior left frontal lobe consistent with luxury perfusion well seen on images 14 through 19 of series 14. IMPRESSION: Findings consistent with subacute ischemic infarct posterior left frontal cortex. Punctate focus in the deep white matter right parietal lobe. Reviewed, Interpreted and Dictated by Edmar Paige MD Transcribed by Sophie Salcedo Authenticated and [facility]
[2023-02-21 13:17] LABS: Blood Urea Nitrogen 28 mg/dl (7-17); Estimated Glomerular Filt Rate 84 ml/min (>60); GFR (African American) 101 ML/MIN (>60)
== END ==
PROVIDERS: PCP Nurse Practitioner Family; Visit Provider Nurse Practitioner Family
DX: R47.01 Aphasia (principal)
CPT/HCPCS: 36415; 70553; 82565; 84520; A9576

== ENCOUNTER 2023-02-22 13:58 | Emergency (ER) | payer MEDICARE, MEDICAID, SELFPAY ==
[2023-02-22] VITALS (8 sets, daily range): BP systolic 125–157; BP diastolic 68–101; PULSE 74–94; RESP 16–20; TEMP 36.7; O2SAT 78–97; BMI 34.0
--- NOTE | 2023-02-22 14:40 | CA_ITS ---
APPROVED REPORT EXAM: Comprehensive 2D, Doppler, and color-flow Echocardiogram Waiter/Waitress Captain: Lizzy Jimenez RT(R) Ht: 5 ft 2 in Wt: 186lbs BSA: 1.85 BP: 151/81 mmHg Indications: COPD, smoker, HTN, hyperlipidemia, CVA Echo Enhancing Agent Indication: Rule out Shunt Agent(s) / Amount(s) Used: Agitated Saline 20 cc 2D Dimensions LVEF (Keane's) 56.10 % F: 54 - 74 LV Volume 80.60 mL F: 46 - 106 LV Volume Index 43.3 mL/m2 F: 29 - 61 EF AP4 54.40 % EF AP2 55.1 % EF BP 56.1 % GL Strain -15.1 % M-Mode Dimensions RVDd 2.32 cm (0.9-2.6) LA Diam 2.78 cm (1.9-4.0) LVDd 4.91 cm (3.5-5.7) LVDs 3.88 cm (3.5-5.7) IVSd 1.10 cm (0.6-1.1) PWd 0.84 cm (0.6-1.1) EF (Teich) 42.60% FS 21.00% EDV (Teich) 113.40 mL TAPSE 2.22 (<1.7) ESV (Teich) 65.10 mL LV Diastology E Decel Time 150 (160-240 msec) E/A Ratio 0.6 Mitral Valve MV E Max Jasmeet. 96.0 (40-130 cm/s) MV A Velocity 151.0 (40-130 cm/s) E/A Ratio 0.63 MV PHT 44.0 ms Left Ventricle The left ventricle is normal size. The left ventricular systolic function is normal. The left ventricular ejection fraction is within the normal range. There is increased LV wall thickness. Mild concentric left ventricular hypertrophy. There is normal LV segmental wall motion. Diastolic function is indeterminate. LVEF is 60%. Right Ventricle The right ventricle is normal size. The right ventricular systolic function is normal. Atria Left atrium is mildly dilated. Right atrium is mildly dilated. There is no Doppler evidence of interatrial shunt. Saline bubble contrast intravenous injection does not demonstrate PFO. Aortic Valve The aortic valve opens well. There is no aortic valvular stenosis. No aortic regurgitation is present. Mitral Valve Moderate mitral annular calcification. The mitral valve leaflets are mildly thickened. No evidence of mitral valve stenosis. Trace mitral regurgitation. Tricuspid Valve The tricuspid valve leaflets are thin and pliable. Trace tricuspid regurgitation. There is insufficient TR jet to estimate RVSP. Pulmonic Valve The pulmonary valve is normal in structure. Trace pulmonic regurgitation. Great Vessels The aortic root is normal in size. The ascending aorta is normal in size. The IVC is not well-visualized. Pericardium There is no pericardial effusion. Other Information Study Quality: Fair Conclusion Normal biventricular systolic function. Mild concentric LVH. Biatrial dilation. No significant valvular stenosis or regurgitation. No Doppler evidence of interatrial shunt. Saline bubble contrast intravenous injection does not demonstrate PFO. Electronically signed by : Lucy Miramontes MD 02/22/2023 16:04:04
--- NOTE | 2023-02-22 14:41 | CT_ITS ---
PROCEDURE INFORMATION: Exam: CTA Head With Contrast, Arteriography Exam date and time: 02/22/2023 4:20 PM Age: 67 years old Clinical indication: Condition or disease; Other: Subacute CVA on mri left frontal lobe. ; Additional info: Subacute CVA on mri L frontal lobe, found yesterday in mri. TECHNIQUE: Imaging protocol: Computed tomographic angiography of the head with contrast. Exam focused on the arteries. 3D rendering (Not supervised by radiologist): MIP and/or 3D reconstructed images were created by the technologist. Radiation optimization: All CT scans at this facility use at least one of these dose optimization techniques: automated exposure control; mA and/or kV adjustment per patient size (includes targeted exams where dose is matched to clinical indication); or iterative reconstruction. Contrast material: ISOUVE 370; Contrast volume: 100 ml; Contrast route: INTRAVENOUS (IV); REPORTING DATA: Count of CT and Cardiac NM exams in prior 12 months: This patient has received 2 known CTs and 0 known cardiac nuclear medicine studies in the 12 months prior to the current study. COMPARISON: 1. CT HEAD/BRAIN WO CON 02/22/2023 4:17 PM 2. MR HEAD/BRAIN WO/W CON 02/21/2023 1:12 PM FINDINGS: ANTERIOR CIRCULATION: Right internal carotid artery: Intracranial segment is patent with no significant stenosis. No aneurysm. Right middle cerebral artery: No occlusion or significant stenosis. No aneurysm. Right anterior cerebral artery: No occlusion or significant stenosis. No aneurysm. Left internal carotid artery: Intracranial segment is patent with no significant stenosis. No aneurysm. Left middle cerebral artery: No occlusion or significant stenosis. No aneurysm. Left anterior cerebral artery: No occlusion or significant stenosis. No aneurysm. POSTERIOR CIRCULATION: Right vertebral artery: No occlusion or significant stenosis. No aneurysm. Left vertebral artery: No occlusion or significant stenosis. No aneurysm. Basilar artery: No occlusion or significant stenosis. No aneurysm. Right posterior cerebral artery: No occlusion or significant stenosis. No aneurysm. Left posterior cerebral artery: No occlusion or significant stenosis. No aneurysm. Brain: There is cortical laminar necrosis involving of the left frontal lobe. Cerebral ventricles: No ventriculomegaly. Bones/joints: Unremarkable. No acute fracture. Soft tissues: Unremarkable. IMPRESSION: No evidence for large vessel occlusion or acute vascular anomaly.
--- NOTE | 2023-02-22 14:41 | CT_ITS ---
PROCEDURE INFORMATION: Exam: CTA Neck With Contrast Exam date and time: 02/22/2023 4:20 PM Age: 67 years old Clinical indication: Condition or disease; Other: Subacute CVA on mri done yesterday; Additional info: Subacute CVA on mri L frontal lobe TECHNIQUE: Imaging protocol: Computed tomographic angiography of the neck with contrast. Exam focused on the cervical segments of the vasculature. 3D rendering (Not supervised by radiologist): MIP and/or 3D reconstructed images were created by the technologist. Radiation optimization: All CT scans at this facility use at least one of these dose optimization techniques: automated exposure control; mA and/or kV adjustment per patient size (includes targeted exams where dose is matched to clinical indication); or iterative reconstruction. Contrast material: ISOVUE 370; Contrast volume: 100 ml; Contrast route: INTRAVENOUS (IV); REPORTING DATA: Count of CT and Cardiac NM exams in prior 12 months: This patient has received 2 known CTs and 0 known cardiac nuclear medicine studies in the 12 months prior to the current study. COMPARISON: 1. CT ANGIO HEAD 02/22/2023 4:[address] HEAD/BRAIN WO CON 02/22/2023 4:17 PM FINDINGS: Right common carotid artery: There is atherosclerotic disease of the right carotid bulb without significant stenosis of the internal carotid artery. Right internal carotid artery: No stenosis of the extracranial segment. No dissection or occlusion. Right external carotid artery: No occlusion or stenosis of the origin. Left common carotid artery: There is atherosclerotic disease of the left carotid bulb without significant stenosis of the internal carotid artery. Left internal carotid artery: No stenosis of the extracranial segment. No dissection or occlusion. Left external carotid artery: No occlusion or stenosis of the origin. Right vertebral artery: No stenosis. No dissection or occlusion. Left vertebral artery: No stenosis. No dissection or occlusion. Soft tissues: Normal. No significant soft tissue swelling. Bones/joints: No acute fracture. Lungs: There is a subpleural nodular focus in the right upper lobe medially measuring up to 1.4 cm (image 36 series 3), follow-up noncontrast CT of the chest is suggested. IMPRESSION: 1. Atherosclerotic disease of the carotid bulbs without significant stenosis of the internal carotid arteries. 2. There is a subpleural nodular focus in the right upper lobe medially measuring up to 1.4 cm (image 36 series 3), follow-up noncontrast CT of the chest is suggested. REFERENCES: NASCET CRITERIA. The degree of stenosis in the cervical segment of the internal carotid artery is based on NASCET criteria. Normal is no stenosis. Mild is less than 50% stenosis. Moderate is 50-69% stenosis. Severe is 70% to 99% stenosis. Total occlusion is no detectable patent lumen.
--- NOTE | 2023-02-22 14:41 | CT_ITS ---
PROCEDURE INFORMATION: Exam: CT Head Without Contrast Exam date and time: 02/22/2023 4:17 PM Age: 67 years old Clinical indication: Condition or disease; Other: Subacute CVA on mri left frontal lobe done yesterday. ; Additional info: Subacute CVA on mri L frontal lobe, found yesterday TECHNIQUE: Imaging protocol: Computed tomography of the head without contrast. Radiation optimization: All CT scans at this facility use at least one of these dose optimization techniques: automated exposure control; mA and/or kV adjustment per patient size (includes targeted exams where dose is matched to clinical indication); or iterative reconstruction. REPORTING DATA: Count of CT and Cardiac NM exams in prior 12 months: This patient has received 2 known CTs and 0 known cardiac nuclear medicine studies in the 12 months prior to the current study. COMPARISON: 1. MR HEAD/BRAIN WO/W CON 02/21/2023 1:[address] HEAD/BRAIN WO CON 01/17/2023 4:35 PM FINDINGS: Brain: There is cortical laminar necrosis involving the left frontal lobe with expected evolution of a left frontal infarct. Right lacunar infarcts are not well seen on this examination. No evidence for hemorrhagic conversion. Scattered age-related changes including presumed white matter disease and atrophy. Cerebral ventricles: No ventriculomegaly. Paranasal sinuses: Visualized sinuses are unremarkable. No fluid levels. Mastoid air cells: Visualized mastoid air cells are well aerated. Bones/joints: Unremarkable. No acute fracture. Soft tissues: Unremarkable. IMPRESSION: Cortical laminar necrosis involving the left frontal lobe. Small right-sided lacunar infarcts are not well seen by CT. No evidence for hemorrhagic conversion.
--- NOTE | 2023-02-22 14:43 | ED_ITS ---
Discharge Plan Disposition Patient Disposition: Home, Self-Care Prescriptions Prescriptions: New aspirin 81 mg capsule 81 mg PO DAILY Qty: 30 0RF No Action Eliquis 5 mg tablet 5 mg PO BID cholecalciferol (vitamin D3) 1,250 mcg (50,000 unit) capsule 1,250 mcg PO QMONTH omeprazole 20 mg capsule,delayed release(DR/EC) 20 mg PO DAILY tizanidine 4 mg capsule 4 mg PO TID PRN (Reason: .) atorvastatin 20 mg tablet 20 mg PO DAILY hydroxyzine HCl 25 mg tablet 25 mg PO BID PRN (Reason: .) gabapentin 600 mg tablet 600 mg PO TID Patient Comments: TAKE 1 TABLET BY MOUTH THREE TIMES DAILY FOR 30 DAYS montelukast 10 mg tablet 10 mg PO DAILY Patient Comments: TAKE 1 TABLET BY MOUTH ONCE DAILY IN THE EVENING duloxetine 30 mg capsule,delayed release(DR/EC) 30 mg PO . losartan 100 mg tablet 100 mg PO DAILY Qty: 90 3RF metformin 500 mg tablet 500 mg PO DAILY ferrous sulfate 325 mg (65 mg iron) tablet 325 mg PO Q OTHER DAY furosemide [Lasix] 20 mg tablet 20 mg PO DAILY PRN (Reason: .) metoprolol succinate 25 mg tablet extended release 24 hr 25 mg PO DAILY Bevespi Aerosphere 9-4.8 mcg HFA aerosol inhaler 2 puff inhalation BID 90 Days Qty: 10.7 3RF magnesium oxide 400 mg magnesium capsule 400 mg PO HS Qty: 30 4RF potassium chloride 20 mEq tablet extended release 20 meq PO DAILY Qty: 30 4RF Referrals Follow up/Referrals: Debora Robles APRN [Primary Care Provider] - See instructions Gigi Miramontes MD [Staff Physician] - See instructions Activity Restrictions/Add. Instructions Additional Instructions/Restrictions: At this time it was felt you are safe to be discharged home. If new or worsen ing symptoms please do not hesitate to return the emergency department. Please take baby aspirin daily, please continue to take your statin daily. Please wear your Holter monitor and follow-up with cardiology next week at [facility], if they do not contact you please contact them for an appointment in the coming days. Please call [facility] stroke clinic at [phone] to schedule an appointment for follow-up. Please continue to follow-up with your family doctor for your low magnesium and possible home health evaluation. Clinical Impressions Clinical Impression: Acute CVA (cerebrovascular accident), Hypomagnesemia Discharge ED Provider: Abner Ji General Adult HPI <Abner Ji MD - Last Filed: 02/22/23 16:23> General Chief complaint: Neuro Symptoms/Deficit Stated complaint: Physician referal Dr. Robles Time Seen by Provider: 02/22/23 14:27 Mode of Arrival: Ambulatory Source of Information: Patient Limitations: No Limitations Description of Symptoms (Recalled from ER Triage Doc. by RN): PT REPORTS SPEECH AND MEMORY ISSUES FOR THE LAST YEAR BUT IT HAS GOTTEN WORSE IN THE LAST 6 MONTHS, STATES SHE HAS A HARD TIME FINDING HER WORDS, PCP ORDERED A MRI YESTERDAY WHERE HER REPORT CAME BACK WITH A NEW STROKE IN HER L LOBE, REPORT ALSO READS MILD MITRAL STENOSIS STAGE 1 PER DAUGHTER, DAUGHTER STATES PT HAS HAD 2 ORBITAL STROKES 1 IN [place] AND 1 IN [place] History of Present Illness HPI narrative: Patient is a 67-year-old female with past medical history of smoking, hypomagnesemia, neutropenia, DVTs on Eliquis who presents emergency department for evaluation of MRI abnormalities. Over the last 6 months patient has had difficulty expressing her words intermittently, thought content normal. Her functional baseline is ambulatory although she does have bilateral lower extremity symmetric weakness. Denies recent falls, recent speech changes, recent extremity weakness. She underwent outpatient MRI on which was remarkable for subacute ischemic infarct posterior left frontal cortex with abnormal restricted diffusion extending to the posterior left frontal cortex in a curvilinear distribution likely related to acute ischemia with a punctate focus of abnormal restricted diffusion in the deep white matter of the right posterior parietal lobe probably related to a focus of acute ischemia. Punctate focus in the deep white matter of the right parietal lobe. Due to these imaging findings her PCP referred her here for continued evaluation. Related Data Home Medications Medication Instructions Recorded Confirmed apixaban 5 mg tablet (Eliquis) 5 mg PO BID 01/03/22 01/31/23 atorvastatin 20 mg tablet 20 mg PO DAILY 01/03/22 01/31/23 cholecalciferol (vitamin D3) 1,250 1,250 mcg PO QMONTH 01/03/22 01/31/23 mcg (50,000 unit) capsule hydroxyzine HCl 25 mg tablet 25 mg PO BID PRN . 01/03/22 01/31/23 omeprazole 20 mg capsule,delayed 20 mg PO DAILY 01/03/22 01/31/23 release tizanidine 4 mg capsule 4 mg PO TID PRN . 01/03/22 01/31/23 gabapentin 600 mg tablet 600 mg PO TID 01/05/22 01/31/23 ferrous sulfate 325 mg (65 mg 325 mg PO Q OTHER DAY 10/24/22 01/31/23 iron) tablet furosemide 20 mg tablet (Lasix) 20 mg PO DAILY PRN . 10/24/22 01/31/23 metformin 500 mg tablet 500 mg PO DAILY 10/24/22 01/31/23 metoprolol succinate 25 mg 25 mg PO DAILY 10/24/22 01/31/23 tablet,extended release 24 hr montelukast 10 mg tablet 10 mg PO DAILY 12/27/22 01/31/23 duloxetine 30 mg capsule,delayed 30 mg PO . 01/31/23 01/31/23 release Previous Rx's Medication Instructions Recorded losartan 100 mg tablet 100 mg PO DAILY #90 tabs 02/16/22 glycopyrrolate 9 mcg-formoterol 2 puff inhalation BID 90 days 01/05/23 4.8 mcg HFA aerosol inhaler #10.7 grams (Bevespi Aerosphere) magnesium oxide 400 mg PO HS #30 caps 01/17/23 potassium chloride 20 mEq 20 meq PO DAILY #30 tabs 01/17/23 tablet,extended release aspirin 81 mg capsule 81 mg PO DAILY #30 caps 02/22/23 Allergies Allergy/AdvReac Type Severity Reaction Status Date / Time Penicillins AdvReac Mild rash/itchin Verified 01/31/23 11:44 g vancomycin AdvReac Mild rash/itchin Verified 01/31/23 11:44 g acetaminophen [From Vicodin] AdvReac Verified 02/22/23 14:37 hydrocodone [From Vicodin] AdvReac Verified 02/22/23 14:37 piperacillin [From Zosyn] AdvReac rash/itchin Verified 01/31/23 11:44 g tazobactam [From Zosyn] AdvReac rash/itchin Verified 01/31/23 11:44 g PFSH <Abner Ji MD - Last Filed: 02/22/23 16:23> [facility] Disclaimer: The information contained in this section may have been updated after the patient was seen, as this information can be updated by other users. Medical History Abnormal electrocardiogram [ECG] [EKG] Anxiety Atypical angina Chronic narcotic use Chronic pain Chronic pain of left lower extremity COPD (chronic obstructive pulmonary disease) Dizziness Dyspnea Dyspnea on exertion Encounter for screening for malignant neoplasm of lung Essential (primary) hypertension GERD with esophagitis Hernia History of DVT (deep vein thrombosis) History of sleep apnea HLD (hyperlipidemia) HTN (hypertension) Hyperlipidemia, unspecified Hypokalemia Incarcerated hernia of abdominal cavity Insomnia Lymphedema due to chronic inflammation Neuropathy On continuous oral anticoagulation Primary insomnia Smoking greater than 30 pack years Snoring Primary snoring without apnea Tobacco abuse Surgical History H/O wrist surgery H/O: hysterectomy History of colonoscopy History of esophagogastroduodenoscopy (EGD) Family History Other COPD (chronic obstructive pulmonary disease) Cancer Diabetes Heart attack Hypertension Social History Smoking Status: Current every day smoker alcohol intake: never current occupational status: other Travel in the last 8 weeks: None <Abner Ji MD - Last Filed: 02/22/23 16:23> ROS Obtained: Yes Systems reviewed as appropriate & no additional complaints except as documented Physical Exam <Abner Ji MD - Last Filed: 02/22/23 16:23> General General appearance: alert and in no apparent distress Head Head exam: atraumatic and normocephalic Eye Eye exam: Present PERRL and EOMI ENT ENT exam: Present mucous membranes moist Neck Neck exam: Present normal inspection Chest Chest inspection: Present normal inspection and symmetric chest wall rise Respiratory Respiratory exam: Present normal lung sounds bilaterally; Absent respiratory distress Cardiovascular Cardiovascular exam: Present regular rate and normal rhythm Abdominal Exam Abdominal exam: Present soft; Absent tenderness Extremities Exam Extremities exam: Present normal inspection Neurological Exam Neurological exam: Present alert, oriented X3, CN II-XII intact and motor sensory deficit (2 out of 5 symmetric bilateral lower extremity strength at the hips.) Psychiatric Psychiatric exam: Present normal affect Skin Skin exam: Present warm and dry Medical Decision Making <Abner Ji MD - Last Filed: 02/22/23 16:23> Alfred Alvarado Pt receiving controlled substance: No Vital Signs: 02/22/23 14:01 02/22/23 15:01 02/22/23 15:30 Temperature 98.1 F Temperature Source Oral Pulse Rate 92 H 80 Pulse Rate [Left Radial] 93 H Respiratory Rate 18 18 18 Blood Pressure 127/82 133/68 Blood Pressure [Right Arm] 157/74 H Blood Pressure Mean 97 89 Blood Pressure Mean [Right Arm] 101 Blood Pressure Source [Right Arm] Automatic Cuff Blood Pressure Position [Right Arm] Sitting 02 Sat by Pulse Oximetry 94 L 95 97 Oxygen Delivery Method Room Air 02/22/23 16:00 02/22/23 16:31 Temperature Temperature Source Pulse Rate 77 89 Pulse Rate [Left Radial] Respiratory Rate 16 20 Blood Pressure 128/79 125/69 Blood Pressure [Right Arm] Blood Pressure Mean 89 87 Blood Pressure Mean [Right Arm] Blood Pressure Source [Right Arm] Blood Pressure Position [Right Arm] 02 Sat by Pulse Oximetry 93 L 96 Oxygen Delivery Method Lab Data Lab Results 02/22/23 14:10: WBC 7.9, RBC 4.26, Hgb 13.6, Hct 41.8, MCV 98.0, MCH 32.0 H, MCHC 32.7, RDW 13.8, Plt Count 187, MPV 9.5, Neut % (Auto) 7.0 L, Lymph % (Auto) 32.2, [place] % (Auto) 52.2 H, Eos % (Auto) 7.3, Baso % (Auto) 1.3, Neut # (Auto) 0.6 L*, Lymph # (Auto) 2.5, [place] # (Auto) 4.1 H, Eos # (Auto) 0.6 H, Baso # ( Auto) 0.1, Total Counted 100, Neutrophils % (Manual) 46, Lymphocytes % (Manual) 41, Monocytes % (Manual) 3, Eosinophils % (Manual) 10 H, Platelet Estimate Normal, RBC Morphology Normal, Sodium 137, Potassium 3.5, Chloride 103, Carbon Dioxide 31 H, Anion Gap 6.5, BUN 24 H, Creatinine 0.60, Estimated Creat Clear 74, Estimated GFR 100, Est GFR ( Amer) 121, Glucose 158 H, Calcium 8.5, Magnesium 1.2 L, Total Bilirubin 0.4, AST 37 H, ALT 24, Alkaline Phosphatase 83, Total Protein 7.2, Albumin 3.8, Globulin 3.4 H, Albumin/Globulin Ratio 1.1 02/22/23 14:10 02/22/23 14:10 Orders (Tests/Meds): ED MEDICATIONS Generic Name Dose Route Start Last Admin Trade Name Freq PRN Reason Stop Dose Admin Sodium Chloride 10 ml 02/22/23 16:31 02/22/23 16:32 Sodium Chloride 0.9% 10ml Syr (Rad Only) IV 03/24/23 16:30 10 ml NEEDED PRN Administration Maintain IV Site Discontinued Medications Generic Name Dose Route Start Last Admin Trade Name Freq PRN Reason Stop Dose Admin Magnesium Sulfate 2 gm in 50 mls @ 50 mls/hr 02/22/23 15:26 02/22/23 15:32 Magnesium Sulfate 2gm/50ml Premix IV 02/22/23 16:25 50 mls/hr ONCE ONE Administration Iopamidol 100 ml 02/22/23 16:31 02/22/23 16:32 Iopamidol-370 (76%);100ml Bottle IV 02/22/23 16:32 100 ml ONCE ONE Administration Sodium Chloride 50 ml 02/22/23 16:31 02/22/23 16:32 0.9 % Sodium Chloride 50 Ml Vial IV 02/22/23 16:32 50 ml ONCE ONE Administration ORDERS Category Date Time Status CT angio head Stat Cat Scan 02/22/23 14:[address] angio neck Stat Cat Scan 02/22/23 14:[address] head/brain wo con Stat Cat Scan 02/22/23 14:41 Completed CBC w/Auto Diff [Complete Blood Count Auto Diff] Stat Lab 02/22/23 14:10 C ompleted CMP [Comprehensive Metabolic Panel] Stat Lab 02/22/23 14:10 Completed MG [Magnesium] Stat Lab 02/22/23 14:10 Completed CA echo doppler complete Stat Y 02/22/23 14:40 Completed ECG holter initial pfn Stat Y 02/22/23 15:18 Completed ECG initial [place] Stat Y 02/22/23 15:35 Completed ECG Data Tracing #1: ReviewedIndependently interpreted by me, rate is 79, rhythm is regular, axis is, no ST elevation in anatomical contiguous leads, QTc 447. Medical Decision Narrative: In summary patient is a 67-year-old female with past medical history described above who presents emergency department for evaluation of CVA findings on MRI. Patient is hemodynamically stable nontoxic-appearing upon arrival, afebrile. Patient has no new focal deficits. All her deficits have been present for 6 months. Bilateral lower extremity weakness is baseline. Given this patient is well outside the stroke window and goal is secondary stroke prophylaxis. Workup will be conducted with hematologic labs, CTA of the head and neck, EKG, cardiac echo. Cardiology will be consulted for secondary stroke cardiovascular prophylaxis. PT OT will evaluate the patient. Cardiology evaluated the patient and recommended outpatient cardiac monitoring. Echocardiography completed by cardiology. Patient is already on Eliquis and a statin. Secondary stroke prophylaxis with aspirin daily will be initiated. Hematologic labs remarkable for hypomagnesemia which will be repleted. Neutropenia is at baseline. PT OT evaluated patient and deemed the patient is appropriate for outpatient management at this time. The case was discussed with Dr. Shannon who agrees with aspirin initiation, patient is already on statin. The case was discussed with [facility] stroke navigator who agrees given duration of symptoms outpatient management is appropriate at this time. Patient will follow-up with their stroke clinic outpatient barring acute problem and CT imaging. CT imaging and final cardiology recommendation pending at time of transition of care to the oncoming physician, Dr. Diego. <Brenda Diego MD - Last Filed: 02/22/23 17:22> Vital Signs: 02/22/23 14:01 02/22/23 15:01 02/22/23 15:30 Temperature 98.1 F Temperature Source Oral Pulse Rate 92 H 80 Pulse Rate [Left Radial] 93 H Respiratory Rate 18 18 18 Blood Pressure 127/82 133/68 Blood Pressure [Right Arm] 157/74 H Blood Pressure Mean 97 89 Blood Pressure Mean [Right Arm] 101 Blood Pressure Source [Right Arm] Automatic Cuff Blood Pressure Position [Right Arm] Sitting 02 Sat by Pulse Oximetry 94 L 95 97 Oxygen Delivery Method Room Air 02/22/23 16:00 02/22/23 16:31 Temperature Temperature Source Pulse Rate 77 89 Pulse Rate [Left Radial] Respiratory Rate 16 20 Blood Pressure 128/79 125/69 Blood Pressure [Right Arm] Blood Pressure Mean 89 87 Blood Pressure Mean [Right Arm] Blood Pressure Source [Right Arm] Blood Pressure Position [Right Arm] 02 Sat by Pulse Oximetry 93 L 96 Oxygen Delivery Method Lab Data Lab Results 02/22/23 14:10: WBC 7.9, RBC 4.26, Hgb 13.6, Hct 41.8, MCV 98.0, MCH 32.0 H, MCHC 32.7, RDW 13.8, Plt Count 187, MPV 9.5, Neut % (Auto) 7.0 L, Lymph % (Auto) 32.2, [place] % (Auto) 52.2 H, Eos % (Auto) 7.3, Baso % (Auto) 1.3, Neut # (Auto) 0.6 L*, Lymph # (Auto) 2.5, [place] # (Auto) 4.1 H, Eos # (Auto) 0.6 H, Baso # (Auto) 0.1, Total Counted 100, Neutrophils % (Manual) 46, Lymphocytes % (Manual) 41, Monocytes % (Manual) 3, Eosinophils % (Manual) 10 H, Platelet Estimate Normal, RBC Morphology Normal, Sodium 137, Potassium 3.5, Chloride 103, Carbon Dioxide 31 H, Anion Gap 6.5, BUN 24 H, Creatinine 0.60, Estimated Creat Clear 74, Estimated GFR 100, Est GFR ( Amer) 121, Glucose 158 H, Calcium 8.5, Magnesium 1.2 L, Total Bilirubin 0.4, AST 37 H, ALT 24, Alkaline Phosphatase 83, Total Protein 7.2, Albumin 3.8, Globulin 3.4 H, Albumin/Globulin Ratio 1.1 Orders (Tests/Meds): ED MEDICATIONS Generic Name Dose Route Start Last Admin Trade Name Freq PRN Reason Stop Dose Admin Sodium Chloride 10 ml 02/22/23 16:31 02/22/23 16:32 Sodium Chloride 0.9% 10ml Syr (Rad Only) IV 03/24/23 16:30 10 ml NEEDED PRN Administration Maintain IV Site Discontinued Medications Generic Name Dose Route Start Last Admin Trade Name Freq PRN Reason Stop Dose Admin Magnesium Sulfate 2 gm in 50 mls @ 50 mls/hr 02/22/23 15:26 02/22/23 15:32 Magnesium Sulfate 2gm/50ml Premix IV 02/22/23 16:25 50 mls/hr ONCE ONE Administration Iopamidol 100 ml 02/22/23 16:31 02/22/23 16:32 Iopamidol-370 (76%);100ml Bottle IV 02/22/23 16:32 100 ml ONCE ONE Administration Sodium Chloride 50 ml 02/22/23 16:31 02/22/23 16:32 0.9 % Sodium Chloride 50 Ml Vial IV 02/22/23 16:32 50 ml ONCE ONE Administration ORDERS Category Date Time Status CT angio head Stat Cat Scan 02/22/23 14:[address] angio neck Stat Cat Scan 02/22/23 14:[address] head/brain wo con Stat Cat Scan 02/22/23 14:41 Completed CBC w/Auto Diff [Complete Blood Count Auto Diff] Stat Lab 02/22/23 14:10 Completed CMP [Comprehensive Metabolic Panel] Stat Lab 02/22/23 14:10 Completed MG [Magnesium] Stat Lab 02/22/23 14:10 Completed CA echo doppler complete Stat Y 02/22/23 14:40 Completed ECG holter initial pfn Stat Y 02/22/23 15:18 Completed ECG initial [place] Stat Y 02/22/23 15:35 Completed Medical Decision Narrative: In summary patient is a 67-year-old female with past medical history described above who presents emergency department for evaluation of CVA findings on MRI. Patient is hemodynamically stable nontoxic-appearing upon arrival, afebrile. Patient has no new focal deficits. All her deficits have been present for 6 months. Bilateral lower extremity weakness is baseline. Given this patient is well outside the stroke window and goal is secondary stroke prophylaxis. Workup will be conducted with hematologic labs, CTA of the head and neck, EKG, cardiac echo. Cardiology will be consulted for secondary stroke cardiovascular prophylaxis. PT OT will evaluate the patient. Cardiology evaluated the patient and recommended outpatient cardiac monitoring. Echocardiography completed by cardiology. Patient is already on Eliquis and a statin. Secondary stroke prophylaxis with aspirin daily will be initiated. Hematologic labs remarkable for hypomagnesemia which will be repleted. Neutropenia is at baseline. PT OT evaluated patient and deemed the patient is appropriate for outpatient management at this time. The case was discussed with Dr. Shannon who agrees with aspirin initiation, patient is already on statin. The case was discussed with [facility] stroke navigator who agrees given duration of symptoms outpatient management is appropriate at this time. Patient will follow-up with their stroke clinic outpatient barring acute problem and CT imaging. CT imaging and final cardiology recommendation pending at time of transition of care to the oncoming physician, Dr. Diego. Reassessment this is Dr. Diego I took over for Dr. Ji at 5:[address] angio of the head and neck showed no significant stenotic disease in the neck. Cardiology is closely following the patient regarding restratification from a medication standpoint and is getting an echo and Holter monitor and will follow patient as previously instructed by Dr. Ji and the cardiology team. No further emergent intervention was performed at this time. PT OT evaluated the patient and sending the patient appropriate for outpatient management. Critical Care <Abner Ji MD - Last Filed: 02/22/23 16:23> Critical Care Time Critical Care Time: No
[2023-02-22 14:53] LABS: Basophils # 0.1 K/mm3 (0-0.2); Basophils % 1.3 % (0.1-2.0); Eosinophils # 0.6 K/mm3 (0.0-0.4); Eosinophils % 7.3 % (0.1-12.0); Hematocrit 41.8 % (37.0-47.0); Hemoglobin 13.6 g/dL (12.2-16.2); Lymphocytes # 2.5 K/mm3 (0.7-4.5); Lymphocytes % 32.2 % (10-50); Mean Corpuscular HGB Conc 32.7 g/dL (31.8-35.4); Mean Platelet Volume 9.5 fl (7.4-10.4); Monocytes # 4.1 K/mm3 (0.1-1.0); Monocytes % 52.2 % (1.7-9.3); Neutrophils # 0.6 K/mm3 (1.8-7.8); Platelet Count 187 K/mm3 (142-424); Red Blood Count 4.26 M/mm3 (4.20-5.40); Red Cell Distribution Width 13.8 % (11.5-17.5); White Blood Count 7.9 K/mm3 (4.8-10.8)
[2023-02-22 14:57] LABS: MANUAL DIFFERENTIAL MANUAL DIFFERENTIAL (MANUAL DIFF)
--- NOTE | 2023-02-22 14:57 | PC.NURSE ---
REHAB AWARE OF PT/OT CONSULT.
--- NOTE | 2023-02-22 14:59 | PC.NURSE ---
SPOKE WITH CARDS THEY ARE COMING TO SEE PT
[2023-02-22 15:07] LABS: Alanine Aminotransferase 24 U/L (12-78); Albumin Level 3.8 g/dl (3.5-5.0); Albumin/Globulin Ratio 1.1 (1.1-1.8); Alkaline Phosphatase 83 U/L (38-126); Anion Gap 6.5 mEq/L (5-15); Aspartate Amino Transferase 37 U/L (14-36); Bilirubin,Total 0.4 mg/dl (0.2-1.3); Blood Urea Nitrogen 24 mg/dl (7-17); Calcium 8.5 mg/dl (8.4-10.2); Carbon Dioxide 31 mmol/L (22.0-30.0); Chloride 103 mmol/L (98-107); Creatinine Clearance Estimated 74 mL/min (50-200); Estimated Glomerular Filt Rate 100 ml/min (>60); GFR (African American) 121 ML/MIN (>60); Globulin 3.4 g/dL (1.3-3.2); Glucose 158 mg/dl (74-100); Magnesium 1.2 mg/dl (1.6-2.3); Potassium 3.5 mmoL/L (3.5-5.1); Sodium 137 mmol/L (136-145); Total Protein,Serum 7.2 g/dl (6.3-8.2)
[2023-02-22 15:11] LABS: Eosinophils % 10 % (0-3); Lymphocytes % 41 % (10-50); Monocytes % 3 % (2-9); Neutrophils % 46 % (42-76); Platelet Estimate Normal; RBC Morphology Normal; Total Cells Counted 100
--- NOTE | 2023-02-22 15:23 | EXP.CARD.CON ---
History of Present Illness History of Present Illness Consult date: 02/22/23 Requesting physician: Abner Ji Chief complaint: stroke on MRI History of present illness: Patient is a 67-year-old female with past medical history of smoking, hypomagnesemia, DM, HTN, HLD, 1 ppd smoker > 50 years, Hx of DVT and PE on Eliquis and neutropenia who presents to emergency department for evaluation of MRI abnormalities. Over the last 6 months patient has had difficulty expressing her words intermittently, thought content normal. Her functional baseline is ambulatory although she does have bilateral lower extremity symmetric weakness. Denies recent falls, recent speech changes, recent extremity weakness. She underwent outpatient MRI on 02/21 which was remarkable for subacute ischemic infarct posterior left frontal cortex. Punctate focus in the deep white matter of the right parietal lobe. Due to these imaging findings her PCP referred her here for continued evaluation. Patient denies any new focal deficits and reports all deficits present have been present for greater than 6 months. Cardiology was asked to evaluate for secondary stroke cardiovascular prophylaxis. EKG upon presentation to ER shows normal sinus rhythm rate of 79 without ischemic changes noted. Labs as follow: WBC 7.9, hemoglobin 13.6, sodium 137, potassium 3.5, creatinine 0.6, and magnesium 1.2. CTA of head and neck are pending. Echocardiogram is pending. [facility] Disclaimer: The information contained in this section may have been updated after the patient was seen, as this information can be updated by other users. Medical History Abnormal electrocardiogram [ECG] [EKG] Anxiety Atypical angina Chronic narcotic use Chronic pain Chronic pain of left lower extremity COPD (chronic obstructive pulmonary disease) Dizziness Dyspnea Dyspnea on exertion Encounter for screening for malignant neoplasm of lung Essential (primary) hypertension GERD with esophagitis Hernia History of DVT (deep vein thrombosis) History of sleep apnea HLD (hyperlipidemia) HTN (hypertension) Hyperlipidemia, unspecified Hypokalemia Incarcerated hernia of abdominal cavity Insomnia Lymphedema due to chronic inflammation Neuropathy On continuous oral anticoagulation Primary insomnia Smoking greater than 30 pack years Snoring Primary snoring without apnea Tobacco abuse Surgical History H/O wrist surgery H/O: hysterectomy History of colonoscopy History of esophagogastroduodenoscopy (EGD) Family History Other COPD (chronic obstructive pulmonary disease) Cancer Diabetes Heart attack Hypertension Social History Smoking Status: Current every day smoker alcohol intake: never current occupational status: other Travel in the last 8 weeks: None Review of Systems Constitutional Constitutional: Reports weakness *Neurologic Neurologic: Reports memory loss and Reports weakness Psychiatric Psychiatric: Reports memory loss Exam Data for Last 24 hours Vital signs and Labs for Last 24 Hours: Temp Pulse Resp BP Pulse Ox O2 Del Method 98.1 F 92 H 18 127/82 95 Room Air 02/22/23 14:01 02/22/23 15:01 02/22/23 15:01 02/22/23 15:01 02/22/23 15:01 02/22/23 14:01 Laboratory Results - last 24 hr 02/22/23 14:10: WBC 7.9, RBC 4.26, Hgb 13.6, Hct 41.8, MCV 98.0, MCH 32.0 H, MCHC 32.7, RDW 13.8, Plt Count 187, MPV 9.5, Neut % (Auto) 7.0 L, Lymph % (Auto) 32.2, [place] % (Auto) 52.2 H, Eos % (Auto) 7.3, Baso % (Auto) 1.3, Neut # (Auto) 0.6 L*, Lymph # (Auto) 2.5, [place] # (Auto) 4.1 H, Eos # (Auto) 0.6 H, Baso # (Auto) 0.1, Total Counted 100, Neutrophils % (Manual) 46, Lymphocytes % (Manual) 41, Monocytes % (Manual) 3, Eosinophils % (Manual) 10 H, Platelet Estimate Normal, RBC Morphology Normal, Sodium 137, Potassium 3.5, Chloride 103, Carbon Dioxide 31 H, Anion Gap 6.5, BUN 24 H, Creatinine 0.60, Estimated Creat Clear 74, Estimated GFR 100, Est GFR ( Amer) 121, Glucose 158 H, Calcium 8.5, Magnesium 1.2 L, Total Bilirubin 0.4, AST 37 H, ALT 24, Alkaline Phosphatase 83, Total Protein 7.2, Albumin 3.8, Globulin 3.4 H, Albumin/Globulin Ratio 1.1 I & O for Last 24 hours: Intake & Output 02/19/23 02/20/23 02/21/23 02/22/23 23:59 23:59 23:59 23:59 Weight 186 lb Constitutional Constitutional: no acute distress *Routine Respiratory Exam Respiratory: Present CTA bilaterally and symmetric chest movement *Routine Cardiovascular Exam Cardiovascular: Present RRR, Normal S1 and Normal S2 *Routine Abdominal Exam Abdominal: Present soft and normoactive bowel sounds; Absent tenderness *Routine Extremities Exam Extremities: Present full ROM and normal capillary refill; Absent edema *Routine Skin Exam Skin: Present intact, dry and warm Detailed Neck Exam: Thyroids Thyroid: Absent bruit Meds Home Medications and Allergies Home Medications Medication Instructions Recorded Confirmed Type apixaban 5 mg tablet (Eliquis) 5 mg PO BID 01/03/22 01/31/23 History atorvastatin 20 mg tablet 20 mg PO DAILY 01/03/22 01/31/23 History cholecalciferol (vitamin D3) 1,250 1,250 mcg PO QMONTH 01/03/22 01/31/23 History mcg (50,000 unit) capsule hydroxyzine HCl 25 mg tablet 25 mg PO BID PRN . 01/03/22 01/31/23 History omeprazole 20 mg capsule,delayed 20 mg PO DAILY 01/03/22 01/31/23 History release tizanidine 4 mg capsule 4 mg PO TID PRN . 01/03/22 01/31/23 History gabapentin 600 mg tablet 600 mg PO TID 01/05/22 01/31/23 History losartan 100 mg tablet 100 mg PO DAILY #90 tabs 02/16/22 01/31/23 Rx ferrous sulfate 325 mg (65 mg 325 mg PO Q OTHER DAY 10/24/22 01/31/23 History iron) tablet furosemide 20 mg tablet (Lasix) 20 mg PO DAILY PRN . 10/24/22 01/31/23 History metformin 500 mg tablet 500 mg PO DAILY 10/24/22 01/31/23 History metoprolol succinate 25 mg 25 mg PO DAILY 10/24/22 01/31/23 History tablet,extended release 24 hr montelukast 10 mg tablet 10 mg PO DAILY 12/27/22 01/31/23 History glycopyrrolate 9 mcg-formoterol 2 puff inhalation BID 90 days 01/05/23 01/31/23 Rx 4.8 mcg HFA aerosol inhaler #10.7 grams (Bevespi Aerosphere) magnesium oxide 400 mg PO HS #30 caps 01/17/23 01/31/23 Rx potassium chloride 20 mEq 20 meq PO DAILY #30 tabs 01/17/23 01/31/23 Rx tablet,extended release duloxetine 30 mg capsule,delayed 30 mg PO . 01/31/23 01/31/23 History release aspirin 81 mg capsule 81 mg PO DAILY #30 caps 02/22/23 Rx New Prescriptions to Start Prescriptions: aspirin Abner Ji Allergies Allergy/AdvReac Type Severity Reaction Status Date / Time Penicillins AdvReac Mild rash/itchin Verified 01/31/23 11:44 g vancomycin AdvReac Mild rash/itchin Verified 01/31/23 11:44 g acetaminophen [From Vicodin] AdvReac Verified 02/22/23 14:37 hydrocodone [From Vicodin] AdvReac Verified 02/22/23 14:37 piperacillin [From Zosyn] AdvReac rash/itchin Verified 01/31/23 11:44 g tazobactam [From Zosyn] AdvReac rash/itchin Verified 01/31/23 11:44 g Assessment and Plan *Assessment and plan (1) Smoking greater than 30 pack years: Status: Acute Category: Social Hx Code(s): F17.210 - Nicotine dependence, cigarettes, uncomplicated (2) Ischemic stroke: Status: Acute Category: Medical Code(s): I63.9 - Cerebral infarction, unspecified Plan Subacute ischemic infarct -Brain MRI 02/21 shows a subacute ischemic infarct posterior left frontal cortex, punctate focus in the deep white matter of the right parietal lobe -CTA head and neck are pending -Echocardiogram is pending, prelim read shows normal ef with negative bubble study, official read is pending -Patient reports compliance with Eliquis 5 mg p.o. twice daily for history of DVT and PE -Please increase atorvastatin to 80 mg p.o. daily and start patient on aspirin 81 mg p.o. daily -Patient needs to be discharged home with 48-hour Holter monitor with cardiology follow-up in clinic on Monday @ 10am to be placed in 2-week event monitor aftr 48 hour holter. History of unprovoked DVT and PE -Patients reports compliance with Eliquis 5 mg p.o. twice daily Tobacco use -Current 1 pack/day smoker greater than 50 years CV summary 02/22/2023: Please discharge patient home in a 48-hour Holter monitor and start patient on aspirin 81 mg p.o. daily and increase atorvastatin to 80 mg p.o. daily. Have patient follow-up in cardiology clinic on Monday at 10 AM for further evaluation. Patient will need a 2-week event monitor placed at that time.
[2023-02-22] MEDS: MAGNESIUM SULFATE IN WATER 2 GM/50 ML PIGGYBACK IV (15:32)
--- NOTE | 2023-02-22 15:35 | ECG_ITS ---
APPROVED REPORT Exam: Resting ECG HR:79 bpm ECG Measurements Heart Rate 79 AXES ME 175 P 49 QRSd 123 QRS -48 QT 412 T 60 QTc 447 Conclusion SINUS RHYTHM LEFT ANTERIOR FASCICULAR BLOCK [QRS AXIS <= -45, QR IN I, RS IN II] LEFT VENTRICULAR HYPERTROPHY AND ST-T CHANGE [VOLTAGE CRITERIA PLUS ST/T ABNORMALITY] ABNORMAL ECG UNCONFIRMED REPORT Electronically signed by : Yash Nieto MD 02/22/2023 23:01:47
--- NOTE | 2023-02-22 15:36 | PC.NURSE ---
ECHO BEING DONE
--- NOTE | 2023-02-22 16:00 | HMH.OTEV ---
OT Inpatient Evaluation Rehab OT IP Evaluation Start: 02/22/23 14:40 Freq: ONCE Status: Active Protocol: [facility] 02[facility]22/23 15:55 [facility] (Rec: 02/22/23 16:00 [facility] [id number]) Rehab OT IP Assessment Subjective History Pt oriented x 3 on arrival. Pt agreeable to engage in therapy evaluation. Pt came to ER today after having abnormal MRI findings and symptoms of difficulty with word finding and memory. ER documentation: Patient is a 67-year-old female with past medical history of smoking, hypomagnesemia, neutropenia who presents emergency department for evaluation of MRI abnormalities. Over the last 6 months patient has had difficulty expressing her words intermittently, thought content normal. Her functional baseline is ambulatory although she does have bilateral lower extremity symmetric weakness. Denies recent falls, recent speech changes, recent extremity weakness. She underwent outpatient MRI on which was remarkable for subacute ischemic infarct posterior left frontal cortex. Punctate focus in the deep white matter of the right parietal lobe. Due to these imaging findings her PCP referred her here for continued evaluation. Subjective This isn't really new, I just have a hard time processing. Pt reports prior to being in the hosptial, pt lived at home with her two sons and son's girlfriends. Pt reports normally she is able to complete all ADLs and IADLs independently. Pt does use a cane during functional transfers. Pt no longer drives. Objective Patient Orientation Person,Place,Birthday Right Upper Extremity Gross ROM WFL Left Upper Extremity Gross ROM WFL Bed Mobility bed mobility-scooting,bed mobility - supine/sit Assist Level Supervision/Stand by Transfer Training Sit/Stand Transfer Assist Level Supervision/Stand by Lower Body Dressing Ability Standby Assistance Upper Body Dressing Ability Standby Assistance Rehab OT IP prob,goals,plan Problems Date of Evaluation: 02/22/23 Rehab Potential Rehab Potential Good Discharge Plan OT Discharge Plan Pt appears to be at her baseline with functional transfers and ADL independence . Pt can return home with family once she is medically stable per ER physician. Therapist does recommend HH OT evaluation upon returning home for environmental safety. She could also benefit from speech therapy services due to continued expressive aphasia difficulty. Thank you for involving OT services in pt's plan of care. Eval Complexity Eval Charge Codes 57177 - Moderate Complexity PHYSICIAN CERTIFICATION: I certify the specified therapy services for Josephine Heisel are required, authorized, and reviewed every 30 days.
--- NOTE | 2023-02-22 16:06 | HMH.PTEV ---
Physical Therapy Evaluation Rehab PT IP Evaluation Start: 02/22/23 14:40 Freq: ONCE Status: Active Protocol: Document 02/22/23 15:56 [facility] (Rec: 02/22/23 16:05 [facility] [id number]) Subjective/History History History Patient is a 67 year old female presenting to ED today secondary to stroke like symptoms. Patient demonstrates expressive aphasia with communication. Patient lives at home with family. She reports someone is present with her at all times. No reports of recent falls. Patient reports BLE weakness, but no recent falls. Symptoms have progressively gotten worse over the past 6 months per patient report. Previously independent with all ADL's/IADL's. Patient previously ambulatory around the house with a walking sticks. Subjective Subjective I have a hard time saying what I'm thinking, and feel like I'm getting weaker. New diagnosis of cancer in past 12 No months? Rehab PT IP Eval Objective Appearance Patient Behavior Appropriate,Cooperative Patient Orientation Person,Place,Birthday Difficulty following instructions none Speech Pattern Appropriate,Delayed Ambulation Patient Able to Ambulate Yes Ambulation Observation IP General Gait Pattern Observation No Deviations/Normal Ambulation Distance (feet) 60 Ambulation Assistive Device Straight Cane Ambulation Ability Supervision/Stand by Balance Ability to Arise Able, uses arms to help Sitting Balance Steady, safe Standing Balance Narrow stance w/o support Dynamic Sitting Balance Ability Normal Dynamic Standing Balance Ability Normal Transfers Bed Transfer Ability Independent Sit to Stand Bed Transfer Ability Independent ROM All Extremities PT ROM Status WFL MMT All Extremities PT MMT WFL Rehab PT IP prob,goals,plan Problems Date of Evaluation: 02/22/23 PT IP Problems Balance,Self care,Safety Discharge Plan PT Discharge Plan At this time, PT suggests that patient is a good candidate for return to home with HHPT for progressive LE strengthening once found medically stable by . Eval Complexity Eval Charge Codes 09321 - Moderate Complexity PHYSICIAN CERTIFICATION: I certify the specified therapy services for Josephine Rivas are required, authorized, and reviewed every 30 days.
--- NOTE | 2023-02-22 16:10 | PC.NURSE ---
Dr Ji spoke with stroke navigatotr at [facility]
[2023-02-22] MEDS: 0.9 % SODIUM CHLORIDE 50 ML VIAL IV (16:32)
[2023-02-22] MEDS: IOPAMIDOL-370 (76%);100ML BOTTLE 100 ML IV (16:32)
[2023-02-22] MEDS: SODIUM CHLORIDE 0.9% 10ML SYR (RAD ONLY) 10 ML IV (16:32)
== END 2023-02-22 17:47 | disposition home or self-care (01) ==
PROVIDERS: Emergency Provider Emergency Medicine; PCP Nurse Practitioner Family
DX: F17.210 Nicotine dependence, cigarettes, uncomplicated (principal); E83.42 Hypomagnesemia; I20.9 Angina pectoris, unspecified; J44.9 Chronic obstructive pulmonary disease, unspecified; I10 Essential (primary) hypertension; E78.5 Hyperlipidemia, unspecified; I63.89 Other cerebral infarction
CPT/HCPCS: 70450; 70496; 70498; 80053; 83735; 85007; 85025; 93005; 93225; 93306; 96365; 99285; J3475; Q9967

== ENCOUNTER → 2023-02-23 07:52 | Outpatient (CLI) | payer MEDICARE, MEDICAID, SELFPAY ==
--- NOTE | 2023-02-23 07:58 | MR_ITS ---
FINAL REPORT CLINICAL HISTORY: KIDNEY LESION COMPARISON: CTA abdomen and pelvis dated 12/31/2022 FINDINGS: Multiplanar MR imaging of the abdomen was performed without and with contrast. Exam is degraded by respiratory motion. Liver parenchyma is homogeneous. There is no evidence of biliary ductal dilatation. The gallbladder is distended. There is a multitude of stones throughout the gallbladder measuring up to 1.2 cm in greatest dimension. There are bilateral, fluid signal intensity structures in both kidneys. The largest in the lateral portion of the left kidney measures up to 1.6 cm. Postinfusion images demonstrate no evidence of enhancement. There is no mural nodule. Findings have the appearance of benign cysts. Note is made of thoracolumbar scoliosis convex to the left at approximately 25 degrees. IMPRESSION: Multiple gallstones within a distended gallbladder. Bilateral benign-appearing renal cysts, largest on the left measuring 1.6 cm Reviewed, Interpreted and Dictated by Edmar Paige MD Transcribed by Patricia Huerta Authenticated and [facility]
[2023-02-23] MEDS: GADOTERIDOL INJ 17ML SYRINGE 20 ML IV (09:16)
[2023-02-23] MEDS: RAD-SODIUM CHLORIDE 0.9% 250ML BAG 50 ML IV (09:16)
== END ==
LOC: RAD 07:53
PROVIDERS: PCP Nurse Practitioner Family; Visit Provider Nurse Practitioner Family
DX: R47.01 Aphasia (principal)
CPT/HCPCS: 74183; A9576

== ENCOUNTER 2023-02-28 11:03 | Outpatient (CLI) | payer MEDICARE, MEDICAID, SELFPAY | END 2023-02-28 23:59 | LOC: RT 11:05 | PROVIDERS: PCP Nurse Practitioner Family; Visit Provider Nurse Practitioner | DX: I77.9 Disorder of arteries and arterioles, unspecified; R06.09 Other forms of dyspnea; Z86.73 Personal history of transient ischemic attack (TIA), and cerebral infarction without residual deficits | CPT/HCPCS: 93270 ==

== ENCOUNTER 2023-03-23 08:27 | Outpatient (CLI) | payer MEDICARE, MEDICAID, SELFPAY ==
--- NOTE | 2023-03-23 08:32 | CT_ITS ---
FINAL REPORT TECHNIQUE: Axial images were obtained from the lung apex to the mid abdomen by computed tomography. This study was performed with techniques to keep radiation doses as low as reasonably achievable (ALARA). Individualized dose reduction techniques using automated exposure control or adjustment of mA and/or kV according to the patient's size were employed. CLINICAL HISTORY: LUNG NODULE current smoker 1 pack per day x 45 yrs FINDINGS: CHEST CT LOW DOSE CTDI vol (mGy): 2.90 DLP (mGy-cm): 96.38 There is no axillary adenopathy. There is no hilar or mediastinal adenopathy. The heart is normal in size. There is no pericardial or pleural effusion. There are nodular opacities in the medial right apex measuring up to 1.1 cm in greatest dimension. Finding is best seen on image 39 of series 601. There is a large lobular focus in the posterior right lower lobe measuring 2.2 x 1.3 cm best seen on image 52 of series 4. There is marked thoracic scoliosis convex to the right measuring 30 degrees Limited images of the upper abdomen are unremarkable. IMPRESSION: Lobular densities in the medial right upper lobe and posterior right lower lobe. Lung RADS category 4B. Recommend PET-CT. Reviewed, Interpreted and Dictated by Edmar Paige MD Transcribed by Tram Mahmood Authenticated and [facility]
== END 2023-03-23 23:59 ==
LOC: RAD 08:28
PROVIDERS: PCP Nurse Practitioner Family; Visit Provider Nurse Practitioner Family
DX: Z12.2 Encounter for screening for malignant neoplasm of respiratory organs; Z87.891 Personal history of nicotine dependence; R91.1 Solitary pulmonary nodule
CPT/HCPCS: 71271

== ENCOUNTER 2023-04-08 13:53 | Inpatient (IN) | payer MEDICARE, SELFPAY ==
[2023-04-08] VITALS (16 sets, daily range): BP systolic 93–139; BP diastolic 47–76; PULSE 85–123; RESP 17–20; TEMP 36.6–37.1; O2SAT 91–98; BMI 34.0
--- NOTE | 2023-04-08 15:22 | XR_ITS ---
PROCEDURE INFORMATION: Exam: XR Chest Exam date and time: 04/08/2023 3:24 PM Age: 67 years old Clinical indication: Shortness of breath; Additional info: SOB TECHNIQUE: Imaging protocol: Radiologic exam of the chest. Views: 2 views. COMPARISON: CT LUNG SCREENING 03/23/2023 8:41 AM FINDINGS: Lungs: Subsegmental atelectasis right lung base, left lingula. Accompanying bronchiectasis with peribronchial thickening. Pleural spaces: Unremarkable. No pleural effusion. No pneumothorax. Heart/Mediastinum: Unremarkable. No cardiomegaly. Bones/joints: Unremarkable. IMPRESSION: 1. Findings compatible with bronchitis. 2. Bilateral atelectasis as described above.
--- NOTE | 2023-04-08 15:26 | ED_ITS ---
Discharge Plan Disposition Chief Complaint: Upper Respiratory Infection Prescriptions Prescriptions: No Action Eliquis 5 mg tablet 5 mg PO BID cholecalciferol (vitamin D3) 1,250 mcg (50,000 unit) capsule 1,250 mcg PO QMONTH omeprazole 20 mg capsule,delayed release(DR/EC) 20 mg PO DAILY tizanidine 4 mg capsule 4 mg PO TID PRN (Reason: .) atorvastatin 20 mg tablet 20 mg PO DAILY hydroxyzine HCl 25 mg tablet 25 mg PO BID PRN (Reason: .) gabapentin 600 mg tablet 600 mg PO TID Patient Comments: TAKE 1 TABLET BY MOUTH THREE TIMES DAILY FOR 30 DAYS montelukast 10 mg tablet 10 mg PO DAILY Patient Comments: TAKE 1 TABLET BY MOUTH ONCE DAILY IN THE EVENING duloxetine 30 mg capsule,delayed release(DR/EC) 30 mg PO . losartan 100 mg tablet 100 mg PO DAILY Qty: 90 3RF metformin 500 mg tablet 500 mg PO DAILY ferrous sulfate 325 mg (65 mg iron) tablet 325 mg PO Q OTHER DAY metoprolol succinate 25 mg tablet extended release 24 hr 25 mg PO DAILY Bevespi Aerosphere 9-4.8 mcg HFA aerosol inhaler 2 puff inhalation BID 90 Days Qty: 10.7 3RF magnesium oxide 400 mg magnesium capsule 400 mg PO HS Qty: 30 4RF potassium chloride 20 mEq tablet extended release 20 meq PO DAILY Qty: 30 4RF aspirin 81 mg capsule 81 mg PO DAILY Qty: 30 0RF Referrals Follow up/Referrals: Debora Robles APRN [Primary Care Provider] - See instructions Discharge ED Provider: Brenda Diego General Adult HPI General Chief complaint: Upper Respiratory Infection Stated complaint: Covid+ shallow labored breathing Time Seen by Provider: 04/08/23 15:17 Mode of Arrival: Wheelchair Source of Information: Patient and Relative Limitations: No Limitations Description of Symptoms (Recalled from ER Triage Doc. by RN): Patient states she tested positive for covid on and was told to come to ER if o2 sats drop. Daughter states o2 sats have been as low as 88% on RA. Also reports some episodes of diarrhea yesterday. Related Data Home Medications Medication Instructions Recorded Confirmed apixaban 5 mg tablet (Eliquis) 5 mg PO BID 01/03/22 03/23/23 atorvastatin 20 mg tablet 20 mg PO DAILY 01/03/22 03/23/23 cholecalciferol (vitamin D3) 1,250 1,250 mcg PO QMONTH 01/03/22 03/23/23 mcg (50,000 unit) capsule hydroxyzine HCl 25 mg tablet 25 mg PO BID PRN . 01/03/22 03/23/23 omeprazole 20 mg capsule,delayed 20 mg PO DAILY 01/03/22 03/23/23 release tizanidine 4 mg capsule 4 mg PO TID PRN . 01/03/22 03/23/23 gabapentin 600 mg tablet 600 mg PO TID 01/05/22 03/23/23 ferrous sulfate 325 mg (65 mg 325 mg PO Q OTHER DAY 10/24/22 03/23/23 iron) tablet metformin 500 mg tablet 500 mg PO DAILY 10/24/22 03/23/23 metoprolol succinate 25 mg 25 mg PO DAILY 10/24/22 03/23/23 tablet,extended release 24 hr montelukast 10 mg tablet 10 mg PO DAILY 12/27/22 03/23/23 duloxetine 30 mg capsule,delayed 30 mg PO . 01/31/23 03/23/23 release Previous Rx's Medication Instructions Recorded losartan 100 mg tablet 100 mg PO DAILY #90 tabs 02/16/22 glycopyrrolate 9 mcg-formoterol 2 puff inhalation BID 90 days 01/05/23 4.8 mcg HFA aerosol inhaler #10.7 grams (Bevespi Aerosphere) magnesium oxide 400 mg PO HS #30 caps 01/17/23 potassium chloride 20 mEq 20 meq PO DAILY #30 tabs 01/17/23 tablet,extended release aspirin 81 mg capsule 81 mg PO DAILY #30 caps 02/22/23 Allergies Allergy/AdvReac Type Severity Reaction Status Date / Time Penicillins AdvReac Mild rash/itchin Verified 03/23/23 15:51 g vancomycin AdvReac Mild rash/itchin Verified 03/23/23 15:51 g acetaminophen [From Vicodin] AdvReac Verified 03/23/23 15:51 hydrocodone [From Vicodin] AdvReac Verified 03/23/23 15:51 piperacillin [From Zosyn] AdvReac rash/itchin Verified 03/23/23 15:51 g tazobactam [From Zosyn] AdvReac rash/itchin Verified 03/23/23 15:51 g PFSH PFSH Disclaimer: The information contained in this section may have been updated after the patient was seen, as this information can be updated by other users. Medical History (Updated 03/23/23 @ 16:37 by Dianne Brito MD) Abnormal electrocardiogram [ECG] [EKG] Anxiety Atypical angina Carotid artery disease Chronic narcotic use Chronic pain Chronic pain of left lower extremity COPD (chronic obstructive pulmonary disease) Dizziness Dyspnea Dyspnea on exertion Encounter for screening for malignant neoplasm of lung Essential (primary) hypertension GERD with esophagitis Hernia History of DVT (deep vein thrombosis) History of sleep apnea HLD (hyperlipidemia) HTN (hypertension) Hyperlipidemia, unspecified Hypokalemia Incarcerated hernia of abdominal cavity Insomnia Lymphedema due to chronic inflammation Neuropathy On continuous oral anticoagulation Primary insomnia Pulmonary emphysema Smoking greater than 30 pack years Snoring Tobacco abuse Surgical History H/O wrist surgery H/O: hysterectomy History of colonoscopy History of esophagogastroduodenoscopy (EGD) Family History Other COPD (chronic obstructive pulmonary disease) Cancer Diabetes Heart attack Hypertension Social History Smoking Status: Current every day smoker alcohol intake: never current occupational status: other Travel in the last 8 weeks: None Medical Decision Making Vital Signs: 04/08/23 13:54 Temperature 98.7 F Temperature Source Oral Pulse Rate [Right] 103 H Respiratory Rate 20 Blood Pressure [Right Arm] 139/76 Blood Pressure Mean [Right Arm] 97 Blood Pressure Source [Right Arm] Automatic Cuff 02 Sat by Pulse Oximetry 91 L Oxygen Delivery Method Room Air Orders (Tests/Meds): ED MEDICATIONS Generic Name Dose Route Start Last Admin Trade Name Freq PRN Reason Stop Dose Admin Albuterol/Ipratropium 9 ml 04/08/23 15:22 Ipratropium/Albuterol 3 Ml Neb IH 04/08/23 15:23 ONCE ONE Lactated Ringer's 1,000 mls @ 999 mls/hr 04/08/23 15:25 Lactated Ringer's 1000 Ml Bag IV 04/08/23 16:25 .Q1H1M ONE Methylprednisolone Sodium Succinate 125 mg 04/08/23 15:22 Methylprednisolone Sod Succ 125mg Vial IV 04/08/23 15:23 ONCE ONE ORDERS Category Date Time Status CXR 2 view (NOT portable) [XR chest 2V] Stat Exams 04/08/23 15:22 Ordered CBC w/Auto Diff [Complete Blood Count Auto Diff] Stat Lab 04/08/23 15:22 Ordered CMP [Comprehensive Metabolic Panel] Stat Lab 04/08/23 15:22 Ordered Lactic Acid Stat Lab 04/08/23 15:24 Ordered Rapid PCR Covid and Flu A/B Stat Lab 04/08/23 15:24 Ordered Trop I [Troponin I] Stat Lab 04/08/23 15:22 Ordered Troponin I Q3H Lab 04/08/23 18:30 Ordered Troponin I Q3H Lab 04/08/23 21:30 Ordered VBG [Venous Blood Gas] Stat RT 04/08/23 15:22 Ordered EKG Request [ECG Request] Stat Y 04/08/23 15:24 Ordered
--- NOTE | 2023-04-08 15:27 | ED_ITS ---
Discharge Plan Disposition Patient Disposition: Admitted Chief Complaint: Upper Respiratory Infection Prescriptions Prescriptions: No Action Eliquis 5 mg tablet 5 mg PO BID cholecalciferol (vitamin D3) 1,250 mcg (50,000 unit) capsule 1,250 mcg PO QMONTH omeprazole 20 mg capsule,delayed release(DR/EC) 20 mg PO DAILY tizanidine 4 mg capsule 4 mg PO TID PRN (Reason: .) atorvastatin 20 mg tablet 20 mg PO DAILY hydroxyzine HCl 25 mg tablet 25 mg PO BID PRN (Reason: .) gabapentin 600 mg tablet 600 mg PO TID Patient Comments: TAKE 1 TABLET BY MOUTH THREE TIMES DAILY FOR 30 DAYS montelukast 10 mg tablet 10 mg PO DAILY Patient Comments: TAKE 1 TABLET BY MOUTH ONCE DAILY IN THE EVENING duloxetine 30 mg capsule,delayed release(DR/EC) 30 mg PO . losartan 100 mg tablet 100 mg PO DAILY Qty: 90 3RF metformin 500 mg tablet 500 mg PO DAILY ferrous sulfate 325 mg (65 mg iron) tablet 325 mg PO Q OTHER DAY metoprolol succinate 25 mg tablet extended release 24 hr 25 mg PO DAILY Bevespi Aerosphere 9-4.8 mcg HFA aerosol inhaler 2 puff inhalation BID 90 Days Qty: 10.7 3RF magnesium oxide 400 mg magnesium capsule 400 mg PO HS Qty: 30 4RF potassium chloride 20 mEq tablet extended release 20 meq PO DAILY Qty: 30 4RF aspirin 81 mg capsule 81 mg PO DAILY Qty: 30 0RF Referrals Follow up/Referrals: Debora Robles APRN [Primary Care Provider] - See instructions Clinical Impressions Clinical Impression: Reactive airway disease, Acute hypoxemic respiratory failure Discharge ED Provider: Abner Ji General Adult HPI General Chief complaint: Upper Respiratory Infection Stated complaint: Covid+ shallow labored breathing Time Seen by Provider: 04/08/23 15:17 Mode of Arrival: Wheelchair Source of Information: Patient and Relative Limitations: No Limitations Description of Symptoms (Recalled from ER Triage Doc. by RN): Patient states she tested positive for covid on and was told to come to ER if o2 sats drop. Daughter states o2 sats have been as low as 88% on RA. Also reports some episodes of diarrhea yesterday. History of Present Illness HPI narrative: Patient is a 67-year-old female with past medical history of asthma, previous smoker, emphysematous changes, nvu-hznmjuw-nyvqdzhzm diabetes, recently diagnosed COVID who presents emergency department for evaluation of shortness of breath, onset was acute, since last , cough, shortness of breath. Denies chest pain. Due to overall feeling bad and oxygen saturations below 90% on room air she presents here for continued evaluation. There is also associated nonbloody diarrhea. Related Data Home Medications Medication Instructions Recorded Confirmed apixaban 5 mg tablet (Eliquis) 5 mg PO BID 01/03/22 03/23/23 atorvastatin 20 mg tablet 20 mg PO DAILY 01/03/22 03/23/23 cholecalciferol (vitamin D3) 1,250 1,250 mcg PO QMONTH 01/03/22 03/23/23 mcg (50,000 unit) capsule hydroxyzine HCl 25 mg tablet 25 mg PO BID PRN . 01/03/22 03/23/23 omeprazole 20 mg capsule,delayed 20 mg PO DAILY 01/03/22 03/23/23 release tizanidine 4 mg capsule 4 mg PO TID PRN . 01/03/22 03/23/23 gabapentin 600 mg tablet 600 mg PO TID 01/05/22 03/23/23 ferrous sulfate 325 mg (65 mg 325 mg PO Q OTHER DAY 10/24/22 03/23/23 iron) tablet metformin 500 mg tablet 500 mg PO DAILY 10/24/22 03/23/23 metoprolol succinate 25 mg 25 mg PO DAILY 10/24/22 03/23/23 tablet,extended release 24 hr montelukast 10 mg tablet 10 mg PO DAILY 12/27/22 03/23/23 duloxetine 30 mg capsule,delayed 30 mg PO . 01/31/23 03/23/23 release Previous Rx's Medication Instructions Recorded losartan 100 mg tablet 100 mg PO DAILY #90 tabs 02/16/22 glycopyrrolate 9 mcg-formoterol 2 puff inhalation BID 90 days 01/05/23 4.8 mcg HFA aerosol inhaler #10.7 grams (Bevespi Aerosphere) magnesium oxide 400 mg PO HS #30 caps 01/17/23 potassium chloride 20 mEq 20 meq PO DAILY #30 tabs 01/17/23 tablet,extended release aspirin 81 mg capsule 81 mg PO DAILY #30 caps 02/22/23 Allergies Allergy/AdvReac Type Severity Reaction Status Date / Time Penicillins AdvReac Mild rash/itchin Verified 03/23/23 15:51 g vancomycin AdvReac Mild rash/itchin Verified 03/23/23 15:51 g acetaminophen [From Vicodin] AdvReac Verified 03/23/23 15:51 hydrocodone [From Vicodin] AdvReac Verified 03/23/23 15:51 piperacillin [From Zosyn] AdvReac rash/itchin Verified 03/23/23 15:51 g tazobactam [From Zosyn] AdvReac rash/itchin Verified 03/23/23 15:51 g PFSH PFSH Disclaimer: The information contained in this section may have been updated after the patient was seen, as this information can be updated by other users. Medical History (Updated 04/08/23 @ 18:52 by Abner Ji MD) Abnormal electrocardiogram [ECG] [EKG] Anxiety Atypical angina Carotid artery disease Chronic narcotic use Chronic pain Chronic pain of left lower extremity COPD (chronic obstructive pulmonary disease) Dizziness Dyspnea Dyspnea on exertion Encounter for screening for malignant neoplasm of lung Essential (primary) hypertension GERD with esophagitis Hernia History of DVT (deep vein thrombosis) History of sleep apnea HLD (hyperlipidemia) HTN (hypertension) Hyperlipidemia, unspecified Hypokalemia Incarcerated hernia of abdominal cavity Insomnia Lymphedema due to chronic inflammation Neuropathy On continuous oral anticoagulation Primary insomnia Pulmonary emphysema Smoking greater than 30 pack years Snoring Tobacco abuse Surgical History H/O wrist surgery H/O: hysterectomy History of colonoscopy History of esophagogastroduodenoscopy (EGD) Family History Other COPD (chronic obstructive pulmonary disease) Cancer Diabetes Heart attack Hypertension Social History Smoking Status: Current every day smoker alcohol intake: never current occupational status: other Travel in the last 8 weeks: None ROS Obtained: Yes Systems reviewed as appropriate & no additional complaints except as documented Physical Exam General General appearance: alert and in no apparent distress Head Head exam: atraumatic and normocephalic Eye Eye exam: Present PERRL and EOMI ENT ENT exam: Present mucous membranes moist Neck Neck exam: Present normal inspection Chest Chest inspection: Present normal inspection and symmetric chest wall rise Respiratory Respiratory exam: Present wheezes and other (Tachypnea); Absent respiratory distress Cardiovascular Cardiovascular exam: Present normal rhythm and tachycardia Abdominal Exam Abdominal exam: Present soft; Absent tenderness Extremities Exam Extremities exam: Present normal inspection Neurological Exam Neurological exam: Present alert Psychiatric Psychiatric exam: Present normal affect Skin Skin exam: Present warm and dry Medical Decision Making Alfred Inquiry Pt receiving controlled substance: No Vital Signs: 04/08/23 13:54 04/08/23 15:46 04/08/23 16:00 Temperature 98.7 F Temperature Source Oral Pulse Rate 85 91 H Pulse Rate [Right] 103 H Respiratory Rate 20 Blood Pressure 110/66 106/55 L Blood Pressure [Right Arm] 139/76 Blood Pressure Mean [Right Arm] 97 Blood Pressure Source [Right Arm] Automatic Cuff 02 Sat by Pulse Oximetry 91 L 96 98 Oxygen Delivery Method Room Air Nasal Cannula Nasal Cannula Oxygen Flow Rate (LPM) 3 04/08/23 16:30 04/08/23 17:01 04/08/23 17:30 Temperature Temperature Source Pulse Rate 92 H 86 102 H Pulse Rate [Right] Respiratory Rate Blood Pressure 114/63 112/65 104/54 L Blood Pressure [Right Arm] Blood Pressure Mean [Right Arm] Blood Pressure Source [Right Arm] 02 Sat by Pulse Oximetry 97 98 92 L Oxygen Delivery Method Nasal Cannula Nasal Cannula Nasal Cannula Oxygen Flow Rate (LPM) 3 3 3 Lab Data Lab Results 04/08/23 15:22: VBG pH 7.34, VBG pCO2 49.0, VBG pO2 36.8, VBG HCO3 26.0, VBG Total CO2 27.5 H, VBG O2 Saturation 68.6, VBG Base Excess 0.2 04/08/23 15:30: WBC 10.2, RBC 3.81 L, Hgb 12.1 L, Hct 38.1, MCV 99.8 H, MCH 31.8 H, MCHC 31.9, RDW 13.8, Plt Count 218, MPV 8.2, Neut % (Auto) 19.0 L, Lymph % (Auto) 7.2 L, Lamb % (Auto) 73.6 H, Eos % (Auto) 0.1, Baso % (Auto) 0.2, Neut # (Auto) 1.9, Lymph # (Auto) 0.7, Lamb # (Auto) 7.5 H, Eos # (Auto) 0.0, Baso # (Auto) 0.0, Total Counted 100, Neutrophils % (Manual) 93 H, Lymphocytes % (Manual) 5 L, Monocytes % (Manual) 2, Platelet Estimate Normal, RBC Morphology Normal, Sodium 138, Potassium 4.5, Chloride 103, Carbon Dioxide 33 H, Anion Gap 6.5, BUN 20 H, Creatinine 0.50 L, Estimated Creat Clear 74, Estimated GFR 123, Est GFR ( Amer) 149, Glucose 221 H, Calcium 8.5, Total Bilirubin 0.5, AST 27, ALT 19, Alkaline Phosphatase 119, Troponin I < 0.01, Total Protein 6.5, Albumin 3.1 L, Globulin 3.4 H, Albumin/Globulin Ratio 0.9 L, SARS-CoV-2 (PCR) Not detected, Influenza A Untype (PCR) Not detected, Influenza Type B (PCR) Not detected 04/08/23 15:30 04/08/23 15:30 Orders (Tests/Meds): ED MEDICATIONS Discontinued Medications Generic Name Dose Route Start Last Admin Trade Name Freq PRN Reason Stop Dose Admin Albuterol Sulfate 20 mg 04/08/23 18:15 Albuterol 0.083% 2.5 Mg/3 Ml [facility] 04/08/23 18:16 ONCE ONE Albuterol/Ipratropium 9 ml 04/08/23 15:22 04/08/23 15:54 Ipratropium/Albuterol 3 Ml Formerly [facility] 04/08/23 15:23 9 ml ONCE ONE Administration Lactated Ringer's 1,000 mls @ 999 mls/hr 04/08/23 15:25 04/08/23 15:54 Lactated Ringer's 1000 Ml Bag IV 04/08/23 16:25 999 mls/hr .Q1H1M ONE Administration Azithromycin 500 mg/ Sodium 250 mls @ 250 mls/hr 04/08/23 15:31 04/08/23 15:53 Chloride IV 04/08/23 15:32 250 mls/hr ONCE ONE Administration Ketorolac Tromethamine 30 mg 04/08/23 15:30 04/08/23 15:53 Ketorolac 30mg/Ml Vial IV 04/08/23 15:31 30 mg ONCE ONE Administration Methylprednisolone Sodium Succinate 125 mg 04/08/23 15:22 04/08/23 15:53 Methylprednisolone Sod Succ 125mg Vial IV 04/08/23 15:23 125 mg ONCE ONE Administration ORDERS Category Date Time Status CXR 2 view (NOT portable) [XR chest 2V] Stat Exams 04/08/23 15:22 Completed CBC w/Auto Diff [Complete Blood Count Auto Diff] Stat Lab 04/08/23 15:30 Completed CMP [Comprehensive Metabolic Panel] Stat Lab 04/08/23 15:30 Completed Lactic Acid Stat Lab 04/08/23 15:24 Ordered Rapid PCR Covid and Flu A/B Stat Lab 04/08/23 15:30 Completed Trop I [Troponin I] Stat Lab 04/08/23 15:30 Completed Troponin I Q3H Lab 04/08/23 18:32 Received Troponin I Q3H Lab 04/08/23 21:30 Ordered VBG [Venous Blood Gas] Stat RT 04/08/23 15:22 Completed ECG initial Besson Routine Y 04/08/23 15:45 Completed EKG Request [ECG Request] Stat Y 04/08/23 15:24 Ordered ECG Data Tracing #1: Independently interpreted by me, rate is 84, rhythm is regular, left axis deviation, incomplete left bundle branch block, no ST elevation in anatomical contiguous leads, significant chatter in the inferior leads. QTc 427 Medical Decision Narrative: In summary patient is a 67-year-old female past medical history described above presents emergency department for evaluation of shortness of breath in the setting of known COVID. Patient is hemodynamically stable and nontoxic-appea ring upon arrival, afebrile, tachypneic with wheezing. Differential diagnosis includes COPD exacerbation, silent ACS, COVID, among others. Workup will be conducted with hematologic labs, chest x-ray, VBG, EKG, single troponin. Initial interventions include crystalloid bolus, IV Tylenol, DuoNeb's x 3, methylprednisolone, azithromycin. Workup reviewed by me, hematologic labs are nonactionable, VBG is compensated, no LINH or critical electrolyte abnormalities, hyperglycemia without acidosis. Chest x-ray formally read as bilateral atelectasis with bronchitis. Upon repeat evaluation patient had improved air movement, persistent wheezing for which continuous albuterol will be administered. The case was discussed with hospital medicine regarding management who admit the patient to their service for continued evaluation at this time. Critical Care Critical Care Time Critical Care Time: Yes Attestation: On 04/08/23, the high probability of a clinically significant, sudden or life threatening deterioration of the following system(s) required my full and direct attention, intervention and personal management. The time I documented below is in addition to time spent performing reported procedures but includes the following listed in this critical care notation. Total Time Total Critical Care Time: 35
[2023-04-08 15:36] LABS: Coronavirus 19, PCR Not Detected (NotDetected); Influenza A, PCR Not Detected (NotDetected); Influenza B, PCR Not Detected (NotDetected)
[2023-04-08 15:39] LABS: Basophils % 0.2 % (0.1-2.0); Eosinophils % 0.1 % (0.1-12.0); Hematocrit 38.1 % (37.0-47.0); Hemoglobin 12.1 g/dL (12.2-16.2); Lymphocytes # 0.7 K/mm3 (0.7-4.5); Lymphocytes % 7.2 % (10-50); Mean Corpuscular HGB Conc 31.9 g/dL (31.8-35.4); Mean Corpuscular Hemoglobin 31.8 pg (27.0-31.2); Mean Corpuscular Volume 99.8 fl (81-99); Mean Platelet Volume 8.2 fl (7.4-10.4); Monocytes # 7.5 K/mm3 (0.1-1.0); Monocytes % 73.6 % (1.7-9.3); Neutrophils # 1.9 K/mm3 (1.8-7.8); Platelet Count 218 K/mm3 (142-424); Red Blood Count 3.81 M/mm3 (4.20-5.40); Red Cell Distribution Width 13.8 % (11.5-17.5); White Blood Count 10.2 K/mm3 (4.8-10.8)
[2023-04-08 15:42] LABS: MANUAL DIFFERENTIAL MANUAL DIFFERENTIAL (MANUAL DIFF)
[2023-04-08 15:43] LABS: Chloride 103 mmol/L (98-107); Potassium 4.5 mmoL/L (3.5-5.1); Sodium 138 mmol/L (136-145)
[2023-04-08 15:45] LABS: VBG Base Excess 0.2 mmol/L (-2.4-2.3); VBG Oxygen Saturation 68.6 % (50-70); VBG PH 7.34 mmol/L (7.31-7.41); VBG PO2 36.8 mmol/L (28-40); VBG Total CO2 27.5 mmol/L (23-27)
[2023-04-08 15:45] LABS: Blood Urea Nitrogen 20 mg/dl (7-17); Creatinine Clearance Estimated 74 mL/min (50-200); Estimated Glomerular Filt Rate 123 ml/min (>60); GFR (African American) 149 ML/MIN (>60)
--- NOTE | 2023-04-08 15:45 | ECG_ITS ---
APPROVED REPORT Exam: Resting ECG HR:84 bpm ECG Measurements Heart Rate 84 AXES MT 152 P 70 QRSd 114 QRS -60 QT 386 T -20 QTc 427 Conclusion SINUS RHYTHM LEFT AXIS DEVIATION [QRS AXIS < -30] ANTEROSEPTAL MYOCARDIAL INFARCTION , OF INDETERMINATE AGE [40+ ms Q WAVE IN V1-V4] ABNORMAL ECG UNCONFIRMED REPORT Electronically signed by : Yash Nieto MD 04/08/2023 19:52:16
[2023-04-08 15:46] LABS: Alanine Aminotransferase 19 U/L (12-78); Albumin Level 3.1 g/dl (3.5-5.0); Albumin/Globulin Ratio 0.9 (1.1-1.8); Alkaline Phosphatase 119 U/L (38-126); Anion Gap 6.5 mEq/L (5-15); Aspartate Amino Transferase 27 U/L (14-36); Bilirubin,Total 0.5 mg/dl (0.2-1.3); Calcium 8.5 mg/dl (8.4-10.2); Carbon Dioxide 33 mmol/L (22.0-30.0); Globulin 3.4 g/dL (1.3-3.2); Glucose 221 mg/dl (74-100); Total Protein,Serum 6.5 g/dl (6.3-8.2)
[2023-04-08] MEDS: METHYLPREDNISOLONE SOD SUCC 125MG VIAL 125 MG IV (15:53)
[2023-04-08] MEDS: KETOROLAC 30MG/ML VIAL 30 MG IV (15:53)
[2023-04-08] MEDS: AZITHROMYCIN 500 MG in 0.9 % SODIUM CHLORIDE 250 ML 250 MG IV (15:53)
[2023-04-08] MEDS: IPRATROPIUM/ALBUTEROL 3 ML NEB 9 ML IH (15:54)
[2023-04-08] MEDS: LACTATED RINGERS 1000ML 1,000 ML 999 ML IV (15:54)
[2023-04-08 15:59] LABS: Troponin I < 0.01 ng/ml (0.00-0.034)
[2023-04-08 16:22] LABS: Lymphocytes % 5 % (10-50); Monocytes % 2 % (2-9); Neutrophils % 93 % (42-76); Total Cells Counted 100
[2023-04-08 16:25] LABS: Platelet Estimate Normal; RBC Morphology Normal
[2023-04-08] MEDS: ALBUTEROL 0.083% 2.5 MG/3 ML NEB 20 MG IH (18:30)
[2023-04-08 19:01] LABS: Troponin I < 0.01 ng/ml (0.00-0.034)
--- NOTE | 2023-04-08 19:21 | PC.NURSE ---
Assumed care and rounded on pt at this time. Pt voices no needs.
--- NOTE | 2023-04-08 19:53 | PC.NURSE ---
Admitting notified for OBS admit, overflow MS to ICU [phone]
--- NOTE | 2023-04-08 20:20 | PC.NURSE ---
report called to rey vanessa RN at this time
--- NOTE | 2023-04-08 20:21 | EXP.HP ---
History of Present Illness *Admission Date: 04/08/23 *Reason for visit:: low sat *History of present illness: This is a 67-year-old female with PMHx of asthma, previous smoker, emphysematous changes, no former diagnosed COPD, ylo-avqgwcz-[id number] diabetes. History obtained form daughter at bedside who confirmed that last Monday patient diagnosed COVID. Per patient PCP instruct patient to come to ER if o2 saturation drop it. Patient is been having shortness of breath, since last , cough. Denies chest pain. Due to overall feeling bad and oxygen saturations below 90% on room air she presents here for continued evaluation. There is also associated nonbloody diarrhea. Admitted for further treatment and management. [facility] Disclaimer: The information contained in this section may have been updated after the patient was seen, as this information can be updated by other users. Medical History (Updated 04/09/23 @ 04:15 by Fransisco Mcclellan APRN) Abnormal electrocardiogram [ECG] [EKG] Anxiety Atypical angina Carotid artery disease Chronic narcotic use Chronic pain Chronic pain of left lower extremity COPD (chronic obstructive pulmonary disease) Dizziness Dyspnea Dyspnea on exertion Encounter for screening for malignant neoplasm of lung Essential (primary) hypertension GERD with esophagitis Hernia History of DVT (deep vein thrombosis) History of sleep apnea HLD (hyperlipidemia) HTN (hypertension) Hyperlipidemia, unspecified Hypokalemia Incarcerated hernia of abdominal cavity Insomnia Lymphedema due to chronic inflammation Neuropathy On continuous oral anticoagulation Primary insomnia Pulmonary emphysema Smoking greater than 30 pack years Snoring Tobacco abuse Surgical History H/O wrist surgery H/O: hysterectomy History of colonoscopy History of esophagogastroduodenoscopy (EGD) Family History Other COPD (chronic obstructive pulmonary disease) Cancer Diabetes Heart attack Hypertension Social History (Updated 04/08/23 @ 22:06 by Camille Patricio RN) Smoking Status: Current every day smoker alcohol intake: never current occupational status: other Travel in the last 8 weeks: None Review of Systems Review of Systems Review of systems:: pertinent systems reviewed and negative unless documented below Meds Home Medications and Allergies Home Medications Medication Instructions Recorded Confirmed Type apixaban 5 mg tablet (Eliquis) 5 mg PO BID Blood Thinner 01/03/22 04/09/23 History cholecalciferol (vitamin D3) 1,250 1,250 mcg PO MONTHLY Supplement 01/03/22 04/09/23 History mcg (50,000 unit) capsule hydroxyzine HCl 25 mg tablet 25 mg PO BIDP PRN Anxiety 01/03/22 04/09/23 History gabapentin 600 mg tablet 600 mg PO TID NERVE PAIN 01/05/22 04/08/23 History ferrous sulfate 325 mg (65 mg 325 mg PO QODHS Supplement 10/24/22 04/09/23 History iron) tablet metformin 500 mg tablet 500 mg PO BIDWMEAL Diabetes 10/24/22 04/09/23 History metoprolol succinate 25 mg 25 mg PO DAILY High Blood Pressure 10/24/22 04/09/23 History tablet,extended release 24 hr montelukast 10 mg tablet 10 mg PO PM Copd 12/27/22 04/09/23 History duloxetine 30 mg capsule,delayed 30 mg PO DAILY MOOD 01/31/23 04/09/23 History release aspirin 81 mg tablet,delayed 81 mg PO DAILY Blood Thinner 04/09/23 04/09/23 History release atorvastatin 80 mg tablet 80 mg PO HS Cholesterol 04/09/23 04/09/23 History cholecalciferol (vitamin D3) 125 125 mcg PO DAILY Supplement 04/09/23 04/09/23 History mcg (5,000 unit) tablet glycopyrrolate 9 mcg-formoterol 2 puff inhalation BIDRT Copd 04/09/23 04/09/23 History 4.8 mcg HFA aerosol inhaler (Bevespi Aerosphere) losartan 25 mg tablet 25 mg PO DAILY High Blood Pressure 04/09/23 04/09/23 History magnesium oxide 400 mg PO HS Supplement 04/09/23 04/09/23 History omeprazole 40 mg capsule,delayed 40 mg PO DAILY Acid Reflux 04/09/23 04/09/23 History release potassium chloride 20 mEq 20 meq PO DAILY Supplement 04/09/23 04/09/23 History tablet,extended release tizanidine 4 mg tablet 4 mg PO Q8HP PRN Muscle Spasm 04/09/23 04/09/23 History New Prescriptions to Start Prescriptions: Allergies Allergy/AdvReac Type Severity Reaction Status Date / Time Penicillins AdvReac Mild rash/itchin Verified 03/23/23 15:51 g vancomycin AdvReac Mild rash/itchin Verified 03/23/23 15:51 g acetaminophen [From Vicodin] AdvReac Verified 03/23/23 15:51 hydrocodone [From Vicodin] AdvReac Verified 03/23/23 15:51 piperacillin [From Zosyn] AdvReac rash/itchin Verified 03/23/23 15:51 g tazobactam [From Zosyn] AdvReac rash/itchin Verified 03/23/23 15:51 g Exam Data for Last 24 hours Vital signs and Labs for Last 24 Hours: Temp Pulse Resp BP Pulse Ox O2 Del Method O2 Flow Rate 98.7 F 109 H 20 103/54 L 97 Nasal Cannula 3 04/08/23 13:54 04/08/23 19:44 04/08/23 13:54 04/08/23 19:00 04/08/23 19:00 04/08/23 19:00 04/08/23 19:00 Laboratory Results - last 24 hr 04/08/23 15:22: VBG pH 7.34, VBG pCO2 49.0, VBG pO2 36.8, VBG HCO3 26.0, VBG Total CO2 27.5 H, VBG O2 Saturation 68.6, VBG Base Excess 0.2 04/08/23 15:30: WBC 10.2, RBC 3.81 L, Hgb 12.1 L, Hct 38.1, MCV 99.8 H, MCH 31.8 H, MCHC 31.9, RDW 13.8, Plt Count 218, MPV 8.2, Neut % (Auto) 19.0 L, Lymph % (Auto) 7.2 L, Nelson % (Auto) 73.6 H, Eos % (Auto) 0.1, Baso % (Auto) 0.2, Neut # (Auto) 1.9, Lymph # (Auto) 0.7, Nelson # (Auto) 7.5 H, Eos # (Auto) 0.0, Baso # (Auto) 0.0, Total Counted 100, Neutrophils % (Manual) 93 H, Lymphocytes % (Manual) 5 L, Monocytes % (Manual) 2, Platelet Estimate Normal, RBC Morphology Normal, Sodium 138, Potassium 4.5, Chloride 103, Carbon Dioxide 33 H, Anion Gap 6.5, BUN 20 H, Creatinine 0.50 L, Estimated Creat Clear 74, Estimated GFR 123, Est GFR ( Amer) 149, Glucose 221 H, Calcium 8.5, Total Bilirubin 0.5, AST 27, ALT 19, Alkaline Phosphatase 119, Troponin I < 0.01, Total Protein 6.5, Albumin 3.1 L, Globulin 3.4 H, Albumin/Globulin Ratio 0.9 L, SARS-CoV-2 (PCR) Not detected, Influenza A Untype (PCR) Not detected, Influenza Type B (PCR) Not detected 04/08/23 18:32: Troponin I < 0.01 I & O for Last 24 hours: Intake & Output 04/05/23 04/06/23 04/07/23 04/08/23 23:59 23:59 23:59 23:59 Weight 84.368 kg Constitutional Constitutional: moderate distress, obese and combative *Routine HEENT Exam Head: Present normocephalic and atraumatic Eye: Present PERRL and normal accommodation ENT: Present mucous membranes moist *Routine Neck Exam Neck: Present supple, full ROM and trachea midline *Routine Respiratory Exam Respiratory: Present normal respiratory effort, able to speak in complete sentences and symmetric chest movement *Routine Cardiovascular Exam Cardiovascular: Present RRR, Normal S1 and Normal S2 *Routine Abdominal Exam Abdominal: Present soft, normoactive bowel sounds, distended, guarding, obese and hernia *Routine Rectal Exam Rectal:: deferred *Routine Genitalia Exam Genitalia:: deferred *Routine Extremities Exam Extremities: Present edema, full ROM, pulses intact and calf tenderness Comments: chronic lymphedema with skin discoloration *Routine Skin Exam Skin: Present dry, warm and wounds *Routine Neurological Exam Neurological: Present alert, oriented X3, moving all extremities and normal speech Routine Psychiatric Exam Psychiatric: Present cooperative, good insight and depressed H&P: Result Imaging and Cardiology EKG: Status: image reviewed by me and Preliminary report Chest x-ray: Status: image reviewed by me, Preliminary report and final report Assessment and Plan *Assessment and plan (1) Acute hypoxemic respiratory failure: Status: Acute Category: Medical Code(s): J96.01 - Acute respiratory failure with hypoxia (2) Bronchitis: Status: Acute Category: Medical Code(s): J40 - Bronchitis, not specified as acute or chronic (3) Elevated lactic acid level: Status: Acute Category: Medical Code(s): R79.89 - Other specified abnormal findings of blood chemistry (4) HTN (hypertension): Status: Acute Qualifiers: Hypertension type: unspecified Qualified Code(s): I10 - Essential (primary) hypertension Category: Medical Code(s): I10 - Essential (primary) hypertension (5) CVA (cerebral vascular accident): Status: Acute Qualifiers: CVA mechanism: unspecified Qualified Code(s): I63.9 - Cerebral infarction, unspecified Category: Medical Code(s): I63.9 - Cerebral infarction, unspecified (6) Smoking greater than 30 pack years: Status: Acute Category: Social Hx Code(s): F17.210 - Nicotine dependence, cigarettes, uncomplicated Plan 67-year-old female with PMHx of asthma, previous smoker, emphysematous changes, no former diagnosed COPD, mkl-wjjrvbs-tjiihotds diabetes. History obtained form daughter at bedside who confirmed that last Monday patient diagnosed COVID. Initial interventions include crystalloid bolus, IV Tylenol, DuoNeb's x 3, methylprednisolone, azithromycin. Workup labs are nonactionable, VBG is compensated, no LINH or critical electrolyte abnormalities, hyperglycemia without acidosis. Chest x-ray formally read as bilateral atelectasis with bronchitis. Imaging reviewed. COVID and Flu negative. Discussed with ER provider fir admission> plan as follow: Acute hypoxemic respiratory failure likely secondary to bronchitis: Emphysema post changes. Unclear if bronchitis secondary to COVID or smoking. COVID and flu negative Admit patient for medical service And started on Levaquin and IV Monitor for sepsis and temperature Vital signs per unit Maximize O2 saturation. Currently oxygen 3L Resume home nebulizer and inhaler regimen Repeat CBC and CMP in the morning -Elevated lactic acid: Improved after sepsis bolus given in the ER Low suspicion for sepsis Continue monitor History of hypertension hyperlipidemia and previous CVA: Patient on Eliquis aspirin statin. Resume Losartan metoprolol Others chronic conditions reviewed: COPD, Sleep apnea, HTN, HLD, DVT: conditions are current stables, reconciled and resume home meds. -tobacco user: smoking cessation education provided. Nicotine patch. SCD for DVT ppx. On protonix. Full code Rounded on patient after nurse practitioner. Personally examined and interviewed patient. Agree with exam findings and care plan as documented.
[2023-04-08] MEDS: LEVOFLOXACIN/D5W 750 MG/150 ML 750 MG/150 ML PIGGYBACK 100 MG IV (21:28)
[2023-04-08] MEDS: 0.9 % SODIUM CHLORIDE 1000ML 1,000 ML 50 ML IV (21:28)
[2023-04-08] MEDS: PANTOPRAZOLE 40MG TABLET 40 MG PO (21:38)
[2023-04-08 21:56] LABS: Lactic Acid 3.4 mmol/L (0.7-2.1)
[2023-04-08 22:10] LABS: Troponin I < 0.01 ng/ml (0.00-0.034)
[2023-04-09] VITALS (9 sets, daily range): BP systolic 104–137; BP diastolic 56–87; PULSE 78–103; RESP 19–22; TEMP 36.6–37.1; O2SAT 88–94; BMI 34.2
[2023-04-09 01:44] LABS: Reflex Lactic Add Lactic Reflex
[2023-04-09 02:26] LABS: Lactic Acid Follow Up (RFLX 1) 2.6 mmol/L (0.7-2.1)
[2023-04-09 04:15] LABS: Reflex Lactic (2 hrs) Add Lactic Reflex
[2023-04-09] MEDS: humaLOG 100 UNITS/ML 3ML VIAL (SSI) SQ ×4 (06:23→20:30)
[2023-04-09 07:34] LABS: Hematocrit 33.4 % (37.0-47.0); Lactic Acid Follow up (RFLX 2) 1.9 mmol/L (0.7-2.1); Lymphocytes % 10.3 % (10-50); Mean Corpuscular HGB Conc 31.3 g/dL (31.8-35.4); Mean Corpuscular Hemoglobin 31.1 pg (27.0-31.2); Mean Corpuscular Volume 99.4 fl (81-99); Mean Platelet Volume 8.7 fl (7.4-10.4); Monocytes # 6.6 K/mm3 (0.1-1.0); Monocytes % 72.2 % (1.7-9.3); Neutrophils # 1.6 K/mm3 (1.8-7.8); Neutrophils % 17.5 % (37.0-80.0); Platelet Count 202 K/mm3 (142-424); Red Blood Count 3.36 M/mm3 (4.20-5.40); White Blood Count 9.1 K/mm3 (4.8-10.8)
[2023-04-09 07:38] LABS: MANUAL DIFFERENTIAL MANUAL DIFFERENTIAL (MANUAL DIFF)
[2023-04-09 07:58] LABS: Alanine Aminotransferase 20 U/L (12-78); Albumin Level 2.7 g/dl (3.5-5.0); Albumin/Globulin Ratio 0.9 (1.1-1.8); Alkaline Phosphatase 96 U/L (38-126); Aspartate Amino Transferase 22 U/L (14-36); Bilirubin,Total 0.3 mg/dl (0.2-1.3); Blood Urea Nitrogen 22 mg/dl (7-17); Calcium 8.6 mg/dl (8.4-10.2); Carbon Dioxide 30 mmol/L (22.0-30.0); Chloride 105 mmol/L (98-107); Creatinine Clearance Estimated 74 mL/min (50-200); Estimated Glomerular Filt Rate 123 ml/min (>60); GFR (African American) 149 ML/MIN (>60); Glucose 175 mg/dl (74-100); Magnesium 1.6 mg/dl (1.6-2.3); Sodium 138 mmol/L (136-145); Total Protein,Serum 5.7 g/dl (6.3-8.2)
[2023-04-09 08:13] LABS: Lymphocytes % 6 % (10-50); Neutrophils % 94 % (42-76); Platelet Estimate Normal; RBC Morphology Normal; Total Cells Counted 100
--- NOTE | 2023-04-09 08:20 | EXP.ACUTE.PN ---
Subjective *Date: 04/09/23 *Time: 17:23 Interval history: Patient is afebrile this morning. Lactate showing improvement. On 3 L nasal cannula oxygen. No nausea or vomiting. States she is feeling marginally better but still significantly short of breath. Prominent cough overnight. Medical Exam Vital signs and Labs for Last 24 Hours: Vital Signs Temp Pulse Pulse Resp BP BP Pulse Ox 04/09/23 06:39 04/09/23 05:00 04/09/23 04:00 98 F 82 20 118/87 88 L 04/09/23 03:00 04/09/23 03:00 04/09/23 01:00 04/08/23 23:00 04/08/23 21:00 04/09/23 00:00 98.4 F 92 H 19 108/56 L 94 L 04/08/23 20:16 97.9 F 103 H 17 101/47 L 92 L 04/08/23 20:48 98.7 F 99 H 20 93/52 L 04/08/23 20:00 98 H 98/59 L 97 04/08/23 19:30 99 H 116/63 95 04/08/23 19:44 109 H 04/08/23 19:43 123 H 04/08/23 19:00 88 103/54 L 97 04/08/23 18:30 95 H 103/58 L 92 L 04/08/23 18:00 93 H 95/54 L 95 04/08/23 17:30 102 H 104/54 L 92 L 04/08/23 17:01 86 112/65 98 04/08/23 16:30 92 H 114/63 97 04/08/23 16:00 91 H 106/55 L 98 04/08/23 15:46 85 110/66 96 04/08/23 13:54 98.7 F 103 H 20 139/76 91 L O2 Del Method O2 Flow Rate 04/09/23 06:39 Nasal Cannula 3 04/09/23 05:00 Nasal Cannula 3 04/09/23 04:00 Nasal Cannula 3 04/09/23 03:00 Nasal Cannula 3 04/09/23 03:00 Nasal Cannula 3 04/09/23 01:00 Nasal Cannula 3 04/08/23 23:00 Nasal Cannula 3 04/08/23 21:00 Nasal Cannula 3 04/09/23 00:00 Nasal Cannula 3 04/08/23 20:16 Nasal Cannula 04/08/23 20:48 Room Air 04/08/23 20:00 04/08/23 19:30 04/08/23 19:44 04/08/23 19:43 04/08/23 19:00 Nasal Cannula 3 04/08/23 18:30 Nasal Cannula 3 04/08/23 18:00 Nasal Cannula 3 04/08/23 17:30 Nasal Cannula 3 04/08/23 17:01 Nasal Cannula 3 04/08/23 16:30 Nasal Cannula 3 04/08/23 16:00 Nasal Cannula 3 04/08/23 15:46 Nasal Cannula 04/08/23 13:54 Room Air Intake and Output 04/08/23 04/09/23 04/09/23 23:59 07:59 15:59 Other: Number of Unmeasured Voids 1 Number of Bowel Movements 1 Weight 84.323 kg Patient Weight 04/09/23 23:59 Weight 84.323 kg Laboratory Results - last 24 hr 04/08/23 15:22: VBG pH 7.34, VBG pCO2 49.0, VBG pO2 36.8, VBG HCO3 26.0, VBG Total CO2 27.5 H, VBG O2 Saturation 68.6, VBG Base Excess 0.2 04/08/23 15:30: WBC 10.2, RBC 3.81 L, Hgb 12.1 L, Hct 38.1, MCV 99.8 H, MCH 31.8 H, MCHC 31.9, RDW 13.8, Plt Count 218, MPV 8.2, Neut % (Auto) 19.0 L, Lymph % (Auto) 7.2 L, [place] % (Auto) 73.6 H, Eos % (Auto) 0.1, Baso % (Auto) 0.2, Neut # (Auto) 1.9, Lymph # (Auto) 0.7, [place] # (Auto) 7.5 H, Eos # (Auto) 0.0, Baso # (Auto) 0.0, Total Counted 100, Neutrophils % (Manual) 93 H, Lymphocytes % (Manual) 5 L, Monocytes % (Manual) 2, Platelet Estimate Normal, RBC Morphology Normal, Sodium 138, Potassium 4.5, Chloride 103, Carbon Dioxide 33 H, Anion Gap 6.5, BUN 20 H, Creatinine 0.50 L, Estimated Creat Clear 74, Estimated GFR 123, Est GFR ( Amer) 149, Glucose 221 H, Calcium 8.5, Total Bilirubin 0.5, AST 27, ALT 19, Alkaline Phosphatase 119, Troponin I < 0.01, Total Protein 6.5, Albumin 3.1 L, Globulin 3.4 H, Albumin/Globulin Ratio 0.9 L, SARS-CoV-2 (PCR) Not detected, Influenza A Untype (PCR) Not detected, Influenza Type B (PCR) Not detected 04/08/23 18:32: Troponin I < 0.01 04/08/23 21:39: Lactate 3.4 H, Troponin I < 0.01 04/09/23 02:00: Lactate 2.6 H 04/09/23 07:20: WBC 9.1, RBC 3.36 L, Hct 33.4 L, MCV 99.4 H, MCH 31.1, MCHC 31.3 L, RDW 14.0, Plt Count 202, MPV 8.7, Neut % (Auto) 17.5 L, Lymph % (Auto) 10.3, [place] % (Auto) 72.2 H, Eos % (Auto) 0.0 L, Baso % (Auto) 0.0 L, Neut # (Auto) 1.6 L, Lymph # (Auto) 1.0, [place] # (Auto) 6.6 H, Eos # (Auto) 0.0, Baso # (Auto) 0.0, Total Counted 100, Neutrophils % (Manual) 94 H, Lymphocytes % (Manual) 6 L, Platelet Estimate Normal, RBC Morphology Normal, Sodium 138, Potassium 4.0, Chloride 105, Carbon Dioxide 30, Anion Gap 7.0, BUN 22 H, Creatinine 0.50 L, Estimated Creat Clear 74, Estimated GFR 123, Est GFR ( Amer) 149, Glucose 175 H D, Lactate 1.9, Calcium 8.6, Magnesium 1.6, Total Bilirubin 0.3, AST 22, ALT 20, Alkaline Phosphatase 96, Total Protein 5.7 L, Albumin 2.7 L D, Globulin 3.0, Albumin/Globulin Ratio 0.9 L I & O for Labs for Last 24 Hours: Intake & Output 02/08/24 02/09/24 02/10/24 02/11/24 23:59 23:59 23:59 23:59 Weight 84.368 kg 84.323 kg Constitutional: Present mild distress, obese, chronically ill appearing and cooperative Head: Present atraumatic and normocephalic ENT: Present normal exam Neck: Present normal inspection Respiratory: Present prolonged expiratory phase, rhonchi, wheezes, crackles and normal respiratory effort Cardiac: Present Regular Rhythm and Tachycardia GI: Present soft and normal bowel sounds; Absent distention or tenderness Extremities: Present normal inspection and full ROM Skin: Present intact; Absent erythema Neuro: Present Grossly Intact, alert, awake, oriented x 3 and moves all extremities Assessment and Plan *Assessment and plan (1) Acute hypoxemic respiratory failure: Status: Acute Category: Medical Code(s): J96.01 - Acute respiratory failure with hypoxia (2) Bronchitis: Status: Acute Category: Medical Code(s): J40 - Bronchitis, not specified as acute or chronic (3) Elevated lactic acid level: Status: Acute Category: Medical Code(s): R79.89 - Other specified abnormal findings of blood chemistry (4) HTN (hypertension): Status: Acute Qualifiers: Hypertension type: unspecified Qualified Code(s): I10 - Essential (primary) hypertension Category: Medical Code(s): I10 - Essential (primary) hypertension (5) CVA (cerebral vascular accident): Status: Acute Qualifiers: CVA mechanism: unspecified Qualified Code(s): I63.9 - Cerebral infarction, unspecified Category: Medical Code(s): I63.9 - Cerebral infarction, unspecified (6) Smoking greater than 30 pack years: Status: Acute Category: Social Hx Code(s): F17.210 - Nicotine dependence, cigarettes, uncomplicated Plan 67-year-old female with PMHx of asthma, previous smoker, emphysematous changes, no former diagnosed COPD, [id number] diabetes. History obtained form daughter at bedside who confirmed that last Monday patient diagnosed COVID. Initial interventions include crystalloid bolus, IV Tylenol, DuoNeb's x 3, methylprednisolone, azithromycin. Workup labs are nonactionable, VBG is compensated, no LINH or critical electrolyte abnormalities, hyperglycemia without acidosis. Chest x-ray formally read as bilateral atelectasis with bronchitis. Imaging reviewed. COVID and Flu negative. Discussed with ER provider for admission. Continues to require inpatient management. Necessitating 3 L still. Problems addressed as follows: Acute hypoxemic respiratory failure likely secondary to bronchitis: Emphysema Suspect bronchitis secondary to COVID and smoking COVID and flu negative, positive for COVID at home prior to admission however. Continue levofloxacin 750 mg daily IV Continue supplemental oxygen, goal sats greater 90%. Currently on 3 L DuoNebs every 6 hours scheduled Prednisone 40 mg daily Budesonide twice daily White cell count 9.1, lactate improved to 2.6. Repeat CBC, CMP, magnesium ordered for the morning. Resume Singulair 10 mg nightly Hypertension History of CVA Hyperlipidemia - Continue Lipitor 80 mg nightly, aspirin 81 mg daily, Eliquis 5 mg twice daily, irbesartan 150 mg daily, Toprol succinate 25 mg daily Mood disorder: Continue Cymbalta 30 mg daily Neuropathy: Continue gabapentin 600 mg 3 times a day tobacco user: smoking cessation education provided. Nicotine patch. Full code Eliquis Regular diet
[2023-04-09 08:38] LABS: Hemoglobin 10.4 g/dL (12.2-16.2)
[2023-04-09] MEDS: hydrOXYzine pamoate 25MG CAPSULE 25 MG PO (09:35)
[2023-04-09] MEDS: ASPIRIN EC 81MG TABLET 81 MG PO (09:35)
[2023-04-09] MEDS: APIXABAN 5MG TABLET 5 MG PO ×2 (09:35→20:29)
[2023-04-09] MEDS: GABAPENTIN 600MG TABLET 600 MG PO ×3 (09:35→20:30)
[2023-04-09] MEDS: IRBESARTAN 150MG TAB 150 MG PO (09:35)
[2023-04-09] MEDS: METOPROLOL SUCCINATE XL 25MG TABLET 25 MG PO (09:35)
[2023-04-09] MEDS: DULOXETINE 30MG CAPSULE.DR 30 MG PO (09:35)
[2023-04-09] MEDS: NYSTATIN TOPICAL POWDER 30GM TP ×4 (09:36→20:31)
[2023-04-09] MEDS: PANTOPRAZOLE 40MG TABLET 40 MG PO (09:38)
[2023-04-09] MEDS: IPRATROPIUM/ALBUTEROL 3 ML NEB IH ×3 (10:07→23:51)
--- NOTE | 2023-04-09 11:29 | HMH.PHAINT1 ---
Pharmacy Intervention Comments: MEDICATION RECONCILIATION COMPLETE USING LIST FROM MOST RECENT MD OFFICE VISIT AND EXTERNAL PHARMACY FILL HISTORY.
[2023-04-09 12:11] LABS: POC Glucose,Bedside 192 (70-110)
[2023-04-09 12:11] LABS: POC Glucose,Bedside 274 (70-110)
[2023-04-09 16:43] LABS: POC Glucose,Bedside 191 (70-110)
[2023-04-09] MEDS: MONTELUKAST SODIUM 10MG TAB 10 MG PO (17:43)
[2023-04-09] MEDS: predniSONE 20MG TAB 40 MG PO (17:43)
--- NOTE | 2023-04-09 17:53 | PC.NURSE ---
Patient remained on 2LNC, vs stable. Lung sounds diminished. Pt alert and oriented times 4
[2023-04-09 20:11] LABS: POC Glucose,Bedside 185 (70-110)
[2023-04-09] MEDS: LEVOFLOXACIN/D5W 750 MG/150 ML 750 MG/150 ML PIGGYBACK 100 MG IV (20:28)
[2023-04-09] MEDS: MAGNESIUM OXIDE 400MG TABLET 400 MG PO (20:30)
[2023-04-09] MEDS: ATORVASTATIN 40MG TABLET 80 MG PO (20:30)
[2023-04-10] VITALS (9 sets, daily range): BP systolic 111–145; BP diastolic 60–76; PULSE 71–88; RESP 17–26; TEMP 36.9–37; O2SAT 84–95; BMI 34.2
[2023-04-10] MEDS: IPRATROPIUM/ALBUTEROL 3 ML NEB IH ×4 (05:58→23:25)
[2023-04-10] MEDS: BUDESONIDE 0.5MG/2ML NEB 0.5 MG IH ×2 (05:58→18:38)
[2023-04-10 06:13] LABS: Basophils % 0.1 % (0.1-2.0); Hematocrit 29.9 % (37.0-47.0); Hemoglobin 10.1 g/dL (12.2-16.2); Lymphocytes # 1.3 K/mm3 (0.7-4.5); Lymphocytes % 13.4 % (10-50); Mean Corpuscular HGB Conc 33.8 g/dL (31.8-35.4); Mean Corpuscular Hemoglobin 32.5 pg (27.0-31.2); Mean Corpuscular Volume 96.1 fl (81-99); Mean Platelet Volume 8.7 fl (7.4-10.4); Neutrophils # 1.4 K/mm3 (1.8-7.8); Platelet Count 220 K/mm3 (142-424); Red Blood Count 3.11 M/mm3 (4.20-5.40); White Blood Count 9.8 K/mm3 (4.8-10.8)
[2023-04-10 06:17] LABS: POC Glucose,Bedside 154 (70-110)
[2023-04-10 06:38] LABS: Neutrophils % 14.5 % (37.0-80.0)
[2023-04-10 06:39] LABS: MANUAL DIFFERENTIAL MANUAL DIFFERENTIAL (MANUAL DIFF)
--- NOTE | 2023-04-10 06:52 | PC.NURSE ---
Pt has rested through the night. No complaints. Remains on 2L NC, O2 sat >90%. Pt gets up the bedside commode with standby assist.
[2023-04-10 08:37] LABS: Chloride 106 mmol/L (98-107); Potassium 4.7 mmoL/L (3.5-5.1); Sodium 135 mmol/L (136-145)
[2023-04-10 08:39] LABS: Lymphocytes % 2 % (10-50); Monocytes % 4 % (2-9); Neutrophils % 93 % (42-76); Total Cells Counted 100
[2023-04-10 08:40] LABS: Alanine Aminotransferase 12 U/L (12-78); Albumin Level 2.4 g/dl (3.5-5.0); Albumin/Globulin Ratio 0.8 (1.1-1.8); Alkaline Phosphatase 95 U/L (38-126); Anion Gap 2.7 mEq/L (5-15); Aspartate Amino Transferase 20 U/L (14-36); Bilirubin,Total 0.3 mg/dl (0.2-1.3); Blood Urea Nitrogen 20 mg/dl (7-17); Calcium 8.4 mg/dl (8.4-10.2); Carbon Dioxide 31 mmol/L (22.0-30.0); Creatinine Clearance Estimated 74 mL/min (50-200); Estimated Glomerular Filt Rate 123 ml/min (>60); GFR (African American) 149 ML/MIN (>60); Globulin 2.9 g/dL (1.3-3.2); Glucose 148 mg/dl (74-100); Total Protein,Serum 5.3 g/dl (6.3-8.2)
[2023-04-10 08:41] LABS: Magnesium 1.6 mg/dl (1.6-2.3)
[2023-04-10 08:49] LABS: Anisocytosis 1+; Hypochromasia 1+; Platelet Estimate Normal
[2023-04-10] MEDS: APIXABAN 5MG TABLET 5 MG PO ×2 (09:28→20:30)
[2023-04-10] MEDS: GABAPENTIN 600MG TABLET 600 MG PO ×3 (09:29→20:31)
[2023-04-10] MEDS: DULOXETINE 30MG CAPSULE.DR 30 MG PO (09:29)
[2023-04-10] MEDS: ASPIRIN EC 81MG TABLET 81 MG PO (09:29)
[2023-04-10] MEDS: METOPROLOL SUCCINATE XL 25MG TABLET 25 MG PO (09:29)
[2023-04-10] MEDS: IRBESARTAN 150MG TAB 150 MG PO (09:29)
[2023-04-10] MEDS: PANTOPRAZOLE 40MG TABLET 40 MG PO (09:30)
[2023-04-10] MEDS: NYSTATIN TOPICAL POWDER 30GM TP ×4 (09:45→20:39)
[2023-04-10] MEDS: predniSONE 20MG TAB 40 MG PO (09:45)
[2023-04-10 13:21] LABS: POC Glucose,Bedside 201 (70-110)
[2023-04-10] MEDS: humaLOG 100 UNITS/ML 3ML VIAL (SSI) SQ ×3 (13:34→20:35)
--- OUTSIDE RECORDS SUMMARY | 2023-04-10 14:11 | XMS_ITS | Continuity of Care Document ---
Author Name Unknown Address [address] [place], [place] [id number] Organization [facility] Phone Care Team Providers Care Aids Nurse Name Role Phone TYSHAWN NOVOA Unavailable TYSHAWN NOVOA Admitting TYSHAWN NOVOA Primary Attending [phone] TREATMENT PLAN DISCHARGE MEDICATIONS Status RXNORM Medication Dose Route Frequency Dates Comments U pdated By Patient discharge medication information is not available. PATIENT OPEN ORDERS Code System Description Frequency Occurrences Priority Start Date Ordering Physician Updated By KIRSTY Cox)SLEEP STUDY ONE TIME 0 Routine December 19, 2022 1:07:00 AM [facility] BRIGHT VILLAGRAN DIRECTIONAL DRILL OPERATOR [id number] on December 19, 2022 1:07:00 AM [facility] SCHEDULED PROCEDURES Code System Description Status Scheduled Date Upd ated By Patient scheduled procedure information is not available. MEDICATIONS HOME MEDICATIONS Status RXNORM Medication Dose Route Frequency Dates Comments R eported By Updated By Drug Treatment Unknown DISCHARGE MEDICATIONS Status RXNORM Medication Dose Route Frequency Dates Comments Physic brenda Updated By No Discharge Medication Info rmation Available INPATIENT MEDICATIONS Status RXNORM Medication Dose Route Frequency Rate Quantity Dates Comments Physician Updated By No Inpatient Medication Info rmation Available SOCIAL HISTORY SOCIAL HISTORY SNOMED-CT Social History Element Description Effective Dates Offered Cessation Comment UpdatedBy [id number] Smoking Status Unknown If Ever Smoked SOCIAL HISTORY - Gender Sex: Female SOCIAL HISTORY - Sexual Behavior Sexual Orientation Gender Identity SNOMED-CT Description SNO MED -CT Description Activity Level No of Partners Partner Type UpdatedBy HEALTH CONCERNS Problems Concern Status Health Concern problem infor mation not available. Smoking Status Status Years Used Consumed packs p er day Health Concern smoking histo ry information not available. Family History Concern Status Health Concern family histor y information not available. ENCOUNTERS ENCOUNTER INFORMATION Reason for Visit Not Specified Admission December 19, 2022 12:24:[address] [address] Discharge December 19, 2022 12:24:00 PM [facility] DISCHARGED TO HOME OR SELF CARE ENCOUNTER DIAGNOSES Notes information is not hoang ilable. Code System Diagnosis Onset Date Diagnosis information is not available. ABSTRACT DIAGNOSES Code System Diagnosis Updated By G47.00 ICD10 INSOMNIA, UNSPECIFIED [id number] on December 20, 2022 11:02:21 AM [place] G47.00 ICD10 INSOMNIA, UNSPECIFIED [id number] on December 20, 2022 11:02:21 AM [facility] M79.605 ICD10 PAIN IN LEFT LEG [id number] on December 20, 2022 11:02:21 AM [place] G89.29 ICD10 OTHER CHRONIC PAIN [id number] o n December 20, 2022 11:02:21 AM [place] F11.90 ICD10 OPIOID USE, UNSPECIFIED, [facility] OMPLICATED [id number] on December 20, 2022 11:02:21 AM [facility] R06.83 ICD10 SNORING [id number] on 2022 11:02:21 AM [facility] Z72.0 ICD10 TOBACCO USE [id number] on 2022 11:02:21 AM [facility] J44.9 ICD10 CHRONIC OBSTRUCT СВЕТЛАНА PULMONARY DISEASE, UNSPECIFIED [id number] on December 20, 2022 11:02:22 AM [facility] Z86.69 ICD10 PERSONAL HISTORY OF OTHER DISEASES OF THE NERVOUS SYSTEM AND SENSE ORGANS [id number] on December 20, 2022 11:02:22 AM [facility] I10 ICD10 ESSENTIAL (PRIMARY) HYPERTEN TEREZA [id number] on December 20, 2022 11:02:22 AM [facility] CARE TEAM Care Aids Nurse Role TYSHAWN NOVOA Referring TYSHAWN NOVOA Admitting TYSHAWN NOVOA Primary Attending CARE TEAM CARE supervisory clerk Role on Team Status Start Date End Date Update d By BRIGHT VILLAGRAN APRN Referring normal November 09, 2022 6:06:30 PM [facility] December 18, 2022 4:00:00 AM [facility] [id number] on November 09, 2022 6:06:30 PM [facility] BRIGHT VILLAGRAN APRN Attending normal November 09, 2022 6:06:30 PM [facility] December 18, 2022 4:00:00 AM [facility] [id number] on November 09, 2022 6:06:30 PM [facility] BRIGHT VILLAGRAN APRN Admitting normal November 09, 2022 6:06:29 PM [facility] December 18, 2022 4:00:00 AM [facility] [id number] on November 09, 2022 6:06:30 PM [facility]
--- OUTSIDE RECORDS SUMMARY | 2023-04-10 14:11 | XMS_ITS | Continuity of Care Document ---
Author Name Unknown Address [address] [place], [place] [id number] Organization [facility] Phone Care Team Providers Care Specialty Finishing Utility Person Name Role Phone TYSHAWN NOVOA Unavailable TYSHAWN NOVOA Admitting TYSHAWN NOVOA Primary Attending [phone] TREATMENT PLAN DISCHARGE MEDICATIONS Status RXNORM Medication Dose Route Frequency Dates Comments U pdated By Patient discharge medication information is not available. PATIENT OPEN ORDERS Code System Description Frequency Occurrences Priority Start Date Ordering Physician Updated By KIRSTY Cox)SLEEP STUDY ONE TIME 0 Routine December 19, 2022 1:07:00 AM [facility] BRIGHT VILLAGRAN [place] ADMINISTRATOR [id number] on December 19, 2022 1:07:00 AM [facility] SCHEDULED PROCEDURES Code System Description [...] Description Effective Dates Offered Cessation Comment UpdatedBy [id number] Smoking Status Unknown If Ever Smoked SOCIAL [...] Specified Admission December 19, 2022 12:24:[address] [address] Discharge December 19, 2022 12:24:00 PM [facility] DISCHARGED TO HOME OR SELF CARE ENCOUNTER DIAGNOSES Notes information is not hoang ilable. Code System Diagnosis Onset Date Diagnosis information is not available. ABSTRACT DIAGNOSES Code System Diagnosis Updated By G47.00 ICD10 INSOMNIA, UNSPECIFIED [id number] on November 09, 2022 6:06:29 PM [facility] CARE TEAM Care Specialty Finishing Utility Person Role TYSHAWN NOVOA Referring TYSHAWN NOVOA Admitting TYSHAWN NOVOA Primary Attending CARE TEAM CARE individual small group instructor Role on Team Status Start Date End Date Update d By BRIGHT VILLAGRAN APRN Referring normal November 09, 2022 6:06:30 PM [place] December 19, 2022 12:24:00 PM [facility] [id number] on November 09, 2022 6:06:30 PM [facility] BRIGHT VILLAGRAN APRN Attending normal November 09, 2022 6:06:30 PM [place] December 19, 2022 12:24:00 PM [facility] [id number] on November 09, 2022 6:06:30 PM [facility] BRIGHT VILLAGRAN APRN Admitting normal November 09, 2022 6:06:29 PM [facility] December 19, 2022 12:24:00 PM [facility] [id number] on November 09, 2022 6:06:30 PM [facility]
[2023-04-10 16:34] LABS: POC Glucose,Bedside 187 (70-110)
[2023-04-10] MEDS: MONTELUKAST SODIUM 10MG TAB 10 MG PO (17:39)
--- NOTE | 2023-04-10 18:35 | EXP.ACUTE.PN ---
Subjective *Date: 04/10/23 *Time: 18:35 Interval history: Patient is afebrile this morning. Feeling little better. Tolerating p.o. intake. Weaned to 2 L nasal cannula continuously. No nausea or vomiting. States she is feeling marginally better but still significantly short of breath. Cough improved Medical Exam Vital signs and Labs for Last 24 Hours: Vital Signs Temp Pulse Pulse Resp BP Pulse Ox O2 Del Method 04/10/23 15:00 Nasal Cannula 04/10/23 16:00 98.6 F 80 19 111/76 90 L Nasal Cannula 04/10/23 11:30 84 L Room Air 04/10/23 13:00 Nasal Cannula 04/10/23 11:00 Nasal Cannula 04/10/23 09:00 Nasal Cannula 04/10/23 08:00 Nasal Cannula 04/10/23 11:51 75 04/10/23 11:51 78 04/10/23 08:00 98.6 F 83 26 H 119/60 92 L Nasal Cannula 04/10/23 06:44 Nasal Cannula 04/10/23 05:58 75 04/10/23 05:58 78 04/10/23 05:00 Nasal Cannula 04/10/23 04:00 98.4 F 71 17 126/61 93 L Nasal Cannula 04/10/23 03:00 Nasal Cannula 04/10/23 00:50 Nasal Cannula 04/09/23 23:52 Nasal Cannula 04/09/23 19:00 102 H 04/09/23 23:00 Nasal Cannula 04/09/23 21:00 Nasal Cannula 04/09/23 20:00 Nasal Cannula 04/09/23 20:00 98.0 F 79 21 115/57 L 91 L Nasal Cannula 04/09/23 18:55 Nasal Cannula O2 Flow Rate FiO2 04/10/23 15:00 3 04/10/23 16:00 3 04/10/23 11:30 04/10/23 13:00 3 04/10/23 11:00 3 04/10/23 09:00 2 04/10/23 08:00 3 04/10/23 11:51 04/10/23 11:51 04/10/23 08:00 2 04/10/23 06:44 2 04/10/23 05:58 04/10/23 05:58 04/10/23 05:00 2 04/10/23 04:00 04/10/23 03:00 2 04/10/23 00:50 3.5 04/09/23 23:52 2 28 04/09/23 19:00 04/09/23 23:00 2 04/09/23 21:00 2 04/09/23 20:00 2 04/09/23 20:00 2 04/09/23 18:55 2 Intake and Output 04/10/23 04/10/23 04/10/23 07:59 15:59 23:59 Intake Total 150 / 510 240 / 510 120 / 510 Output Total 300 / 500 200 / 500 0 / 500 Balance -150 / 10 40 / 10 120 / 10 Intake: Intake, Oral Amount 240 / 360 120 / 360 Intake, Total IV Amount 150 / 150 Levofloxacin/D5w 750 mg/150 ml 150 / 150 750 mg In 150 ml @ 100 mls/hr IV Q24H [facility] Rx#:[id number] Output: Output, Urine Amount 300 / 500 200 / 500 0 / 500 Other: Number of Unmeasured Voids 0 1 Number of Bowel Movements 1 Weight 84.323 kg Patient Weight 04/10/23 23:59 Weight 84.323 kg Laboratory Results - last 24 hr 04/09/23 20:01: POC Glucose 185 H 04/10/23 05:45: WBC 9.8, RBC 3.11 L, Hgb 10.1 L, Hct 29.9 L, MCV 96.1, MCH 32.5 H, MCHC 33.8, RDW 14.0, Plt Count 220, MPV 8.7, Neut % (Auto) 14.5 L, Lymph % (Auto) 13.4, [place] % (Auto) 72.0 H, Eos % (Auto) 0.0 L, Baso % (Auto) 0.1, Neut # (Auto) 1.4 L, Lymph # (Auto) 1.3, [place] # (Auto) 7.0 H, Eos # (Auto) 0.0, Baso # (Auto) 0.0, Total Counted 100, Neutrophils % (Manual) 93 H, Band Neutrophils % 1.0, Lymphocytes % (Manual) 2 L, Monocytes % (Manual) 4, Platelet Estimate Normal, Hypochromasia 1+, Anisocytosis 1+, Sodium 135 L, Potassium 4.7, Chloride 106, Carbon Dioxide 31 H, Anion Gap 2.7 L, BUN 20 H, Creatinine 0.50 L, Estimated Creat Clear 74, Estimated GFR 123, Est GFR ( Amer) 149, Glucose 148 H, Calcium 8.4, Magnesium 1.6, Total Bilirubin 0.3, AST 20, ALT 12 D, Alkaline Phosphatase 95, Total Protein 5.3 L, Albumin 2.4 L D, Globulin 2.9, Albumin/Globulin Ratio 0.8 L 04/10/23 06:08: POC Glucose 154 H 04/10/23 13:13: POC Glucose 201 H 04/10/23 16:27: POC Glucose 187 H I & O for Labs for Last 24 Hours: Intake & Output 04/07/23 04/08/23 04/09/23 04/10/23 23:59 23:59 23:59 23:59 Intake Total 1623 / 1623 510 / 510 Output Total 200 / 200 500 / 500 Balance 1423 / 1423 Weight 84.368 kg 84.323 kg 84.323 kg Constitutional: Present no acute distress, obese, chronically ill appearing and cooperative Head: Present atraumatic and normocephalic ENT: Present normal exam Neck: Present normal inspection Respiratory: Present prolonged expiratory phase, rhonchi, wheezes and normal respiratory effort; Absent crackles Cardiac: Present Regular Rhythm and Tachycardia GI: Present soft and normal bowel sounds; Absent distention or tenderness Extremities: Present normal inspection and full ROM Skin: Present intact; Absent erythema Neuro: Present Grossly Intact, alert, awake, oriented x 3 and moves all extremities Assessment and Plan *Assessment and plan (1) Acute hypoxemic respiratory failure: Status: Acute Category: Medical Code(s): J96.01 - Acute respiratory failure with hypoxia (2) Bronchitis: Status: Acute Category: Medical Code(s): J40 - Bronchitis, not specified as acute or chronic (3) Elevated lactic acid level: Status: Acute Category: Medical Code(s): R79.89 - Other specified abnormal findings of blood chemistry (4) HTN (hypertension): Status: Acute Qualifiers: Hypertension type: unspecified Qualified Code(s): I10 - Essential (primary) hypertension Category: Medical Code(s): I10 - Essential (primary) hypertension (5) CVA (cerebral vascular accident): Status: Acute Qualifiers: CVA mechanism: unspecified Qualified Code(s): I63.9 - Cerebral infarction, unspecified Category: Medical Code(s): I63.9 - Cerebral infarction, unspecified (6) Smoking greater than 30 pack years: Status: Acute Category: Social Hx Code(s): F17.210 - Nicotine dependence, cigarettes, uncomplicated Plan 67-year-old female with PMHx of asthma, previous smoker, emphysematous changes, no former diagnosed COPD, jkf-mohvbrt-wmgohypsx diabetes. History obtained form daughter at bedside who confirmed that last Monday patient diagnosed COVID. Initial interventions include crystalloid bolus, IV Tylenol, DuoNeb's x 3, methylprednisolone, azithromycin. Workup labs are nonactionable, VBG is compensated, no LINH or critical electrolyte abnormalities, hyperglycemia without acidosis. Chest x-ray formally read as bilateral atelectasis with bronchitis. Imaging reviewed. COVID and Flu negative. Discussed with ER provider for admission. Continues to require inpatient management. Weaned to 2 L. Anticipate discharge in the coming 1 to 2 days necessitating 3 L still. Problems addressed as follows: Acute hypoxemic respiratory failure likely secondary to bronchitis: Emphysema Suspect bronchitis secondary to COVID and smoking COVID and flu negative, positive for COVID at home prior to admission however. Continue levofloxacin 750 mg daily IV for 5 days Continue supplemental oxygen, goal sats greater 90%. Currently on 2 L DuoNebs every 6 hours scheduled Prednisone 40 mg daily Budesonide twice daily White cell count 9.8. Repeat CBC, CMP, magnesium ordered for the morning. Continue Singulair 10 mg nightly Hypertension History of CVA Hyperlipidemia - Continue Lipitor 80 mg nightly, aspirin 81 mg daily, Eliquis 5 mg twice daily, irbesartan 150 mg daily, Toprol succinate 25 mg daily Mood disorder: Continue Cymbalta 30 mg daily Neuropathy: Continue gabapentin 600 mg 3 times a day tobacco user: smoking cessation education provided. Nicotine patch. Full code Eliquis Regular diet
[2023-04-10] MEDS: ATORVASTATIN 40MG TABLET 80 MG PO (20:30)
[2023-04-10] MEDS: LEVOFLOXACIN/D5W 750 MG/150 ML 750 MG/150 ML PIGGYBACK 100 MG IV (20:30)
[2023-04-10] MEDS: MAGNESIUM OXIDE 400MG TABLET 400 MG PO (20:31)
[2023-04-10 20:39] LABS: POC Glucose,Bedside 274 (70-110)
[2023-04-11] VITALS: BP 145/72; PULSE 72; RESP 17; TEMP 36.9; O2SAT 91
[2023-04-11 04:00] VITALS: BP 124/59; PULSE 76; RESP 17; TEMP 36.9; O2SAT 94; BMI 34.2
--- NOTE | 2023-04-11 04:44 | PC.NURSE ---
Pt has rested well through the night. Pt has had no complaints. 3L NC O2 sat >90%. Lung sounds diminished. Bowel sounds active. Excoriation noted in skin folds. VSS, Call light in reach.
[2023-04-11 06:14] VITALS: PULSE 65; PULSE 67
[2023-04-11] MEDS: IPRATROPIUM/ALBUTEROL 3 ML NEB IH ×2 (06:14→11:01)
[2023-04-11] MEDS: BUDESONIDE 0.5MG/2ML NEB 0.5 MG IH (06:14)
[2023-04-11 06:16] LABS: POC Glucose,Bedside 109 (70-110)
[2023-04-11 06:54] LABS: Chloride 105 mmol/L (98-107); Sodium 136 mmol/L (136-145)
[2023-04-11 06:56] LABS: Alanine Aminotransferase 14 U/L (12-78); Aspartate Amino Transferase 22 U/L (14-36); Blood Urea Nitrogen 19 mg/dl (7-17); Creatinine Clearance Estimated 74 mL/min (50-200); Estimated Glomerular Filt Rate 123 ml/min (>60); GFR (African American) 149 ML/MIN (>60)
[2023-04-11 06:57] LABS: Albumin Level 2.4 g/dl (3.5-5.0); Albumin/Globulin Ratio 0.8 (1.1-1.8); Alkaline Phosphatase 86 U/L (38-126); Bilirubin,Total 0.2 mg/dl (0.2-1.3); Calcium 8.4 mg/dl (8.4-10.2); Carbon Dioxide 32 mmol/L (22.0-30.0); Globulin 2.9 g/dL (1.3-3.2); Glucose 94 mg/dl (74-100); Total Protein,Serum 5.3 g/dl (6.3-8.2)
--- NOTE | 2023-04-11 07:33 | EXP.PHA.PN ---
Subjective *Date: 04/11/23 *Time: 07:33 Medical Exam Vital signs and Labs for Last 24 Hours: Vital Signs Temp Pulse Pulse Resp BP Pulse Ox O2 Del Method 04/11/23 06:55 Nasal Cannula 04/11/23 06:14 65 04/11/23 06:14 67 04/11/23 06:14 Nasal Cannula 04/11/23 04:53 Nasal Cannula 04/11/23 04:00 98.5 F 76 17 124/59 L 94 L Nasal Cannula 04/11/23 02:51 Nasal Cannula 04/11/23 00:47 Nasal Cannula 04/11/23 00:00 98.4 F 72 17 145/72 H 91 L Nasal Cannula 04/10/23 23:26 77 04/10/23 23:26 77 04/10/23 23:00 Nasal Cannula 04/10/23 21:00 Nasal Cannula 04/10/23 20:00 Nasal Cannula 04/10/23 20:00 98.5 F 75 17 145/71 H 90 L Nasal Cannula 04/10/23 18:42 75 04/10/23 18:42 88 04/10/23 18:42 95 Nasal Cannula 04/10/23 18:36 Nasal Cannula 04/10/23 17:00 Nasal Cannula 04/10/23 15:00 Nasal Cannula 04/10/23 16:00 98.6 F 80 19 111/76 90 L Nasal Cannula 04/10/23 11:30 84 L Room Air 04/10/23 13:00 Nasal Cannula 04/10/23 11:00 Nasal Cannula 04/10/23 09:00 Nasal Cannula 04/10/23 08:00 Nasal Cannula 04/10/23 11:51 75 04/10/23 11:51 78 04/10/23 08:00 98.6 F 83 26 H 119/60 92 L Nasal Cannula O2 Flow Rate 04/11/23 06:55 3 04/11/23 06:14 04/11/23 06:14 04/11/23 06:14 3 04/11/23 04:53 3 04/11/23 04:00 3 04/11/23 02:51 3 04/11/23 00:47 3 04/11/23 00:00 3 04/10/23 23:26 04/10/23 23:26 04/10/23 23:00 3 04/10/23 21:00 3 04/10/23 20:00 3 04/10/23 20:00 3 04/10/23 18:42 04/10/23 18:42 04/10/23 18:42 3 04/10/23 18:36 3 04/10/23 17:00 3 04/10/23 15:00 3 04/10/23 16:00 3 04/10/23 11:30 04/10/23 13:00 3 04/10/23 11:00 3 04/10/23 09:00 2 04/10/23 08:00 3 04/10/23 11:51 04/10/23 11:51 04/10/23 08:00 2 Intake and Output 04/10/23 04/10/23 04/11/23 15:59 23:59 07:59 Intake Total 240 / 660 120 / 660 150 / 150 Output Total 200 / 500 0 / 500 0 / 0 Balance 40 / 160 120 / 160 150 / 150 Intake: Intake, Oral Amount 240 / 360 120 / 360 Intake, Total IV Amount 150 / 150 Levofloxacin/D5w 750 mg/150 ml 150 / 150 750 mg In 150 ml @ 100 mls/hr IV Q24H [facility] Rx#:[id number] Output: Output, Urine Amount 200 / 500 0 / 500 0 / 0 Other: Number of Unmeasured Voids 1 1 1 Number of Bowel Movements 1 1 Weight 84.323 kg 84.323 kg Patient Weight 04/11/23 23:59 Weight 84.323 kg Laboratory Results - last 24 hr 04/10/23 05:45: Total Counted 100, Neutrophils % (Manual) 93 H, Band Neutrophils % 1.0, Lymphocytes % (Manual) 2 L, Monocytes % (Manual) 4, Platelet Estimate Normal, Hypochromasia 1+, Anisocytosis 1+, Sodium 135 L, Potassium 4.7, Chloride 106, Carbon Dioxide 31 H, Anion Gap 2.7 L, BUN 20 H, Creatinine 0.50 L, Estimated Creat Clear 74, Estimated GFR 123, Est GFR ( Amer) 149, Glucose 148 H, Calcium 8.4, Magnesium 1.6, Total Bilirubin 0.3, AST 20, ALT 12 D, Alkaline Phosphatase 95, Total Protein 5.3 L, Albumin 2.4 L D, Globulin 2.9, Albumin/Globulin Ratio 0.8 L 04/10/23 13:13: POC Glucose 201 H 04/10/23 16:27: POC Glucose 187 H 04/10/23 20:33: POC Glucose 274 H 04/11/23 05:17: Sodium 136, Potassium 4.0, Chloride 105, Carbon Dioxide 32 H, Anion Gap 3.0 L, BUN 19 H, Creatinine 0.50 L, Estimated Creat Clear 74, Estimated GFR 123, Est GFR ( Amer) 149, Glucose 94 D, Calcium 8.4, Total Bilirubin 0.2, AST 22, ALT 14, Alkaline Phosphatase 86, Total Protein 5.3 L, Albumin 2.4 L, Globulin 2.9, Albumin/Globulin Ratio 0.8 L 04/11/23 06:09: POC Glucose 109 I & O for Labs for Last 24 Hours: Intake & Output 04/08/23 04/09/23 04/10/23 04/11/23 23:59 23:59 23:59 23:59 Intake Total 1623 / 1623 510 / 660 150 / 150 Output Total 200 / 200 500 / 500 0 / 0 Balance 1423 / 1423 10 / 160 150 / 150 Weight 84.368 kg 84.323 kg 84.323 kg 84.323 kg The patient's infection will respond to the chosen ABx?: Yes Is the patient receiving the right drug, dose, and route?: Yes Could a more targeted ABx be ordered?: No (SPUTUM NOT OBTAINED YET)
[2023-04-11 08:00] VITALS: BP 131/62; PULSE 80; RESP 17; TEMP 36.8; O2SAT 91
--- NOTE | 2023-04-11 08:31 | EXP.DC.SUM ---
General Admission date:: 04/08/23 Discharge date: 04/11/23 HPI HPI HPI: This is a 67-year-old female with PMHx of asthma, previous smoker, emphysematous changes, no former diagnosed COPD, [id number] diabetes. History obtained form daughter at bedside who confirmed that last Monday patient diagnosed COVID. Per patient PCP instruct patient to come to ER if o2 saturation drop it. Patient is been having shortness of breath, since last , cough. Denies chest pain. Due to overall feeling bad and oxygen saturations below 90% on room air she presents here for continued evaluation. There is also associated nonbloody diarrhea. Admitted for further treatment and management. Hospital Course Hospital Course Hospital Course: 67-year-old female with PMHx of asthma, previous smoker, emphysematous changes, no former diagnosed COPD, [id number] diabetes. History obtained form daughter at bedside who confirmed that last Monday patient diagnosed COVID. Initial interventions include crystalloid bolus, IV Tylenol, DuoNeb's x 3, methylprednisolone, azithromycin. Workup labs are nonactionable, VBG is compensated, no LINH or critical electrolyte abnormalities, hyperglycemia without acidosis. Chest x-ray formally read as bilateral atelectasis with bronchitis. Imaging reviewed. COVID and Flu negative. Discussed with ER provider for admission. Slowly responded to antibiotics and steroids. Weaned to 2 L nasal cannula by day of discharge. Will continue supplemental oxygen at discharge. Overall doing better. Plan to complete therapy as an outpatient. Problems addressed as follows: Acute hypoxemic respiratory failure likely secondary to bronchitis: Emphysema Suspect bronchitis secondary to COVID and smoking COVID and flu negative, positive for COVID at home prior to admission however. Patient was initiated on levofloxacin and steroids. Receiving breathing treatments with budesonide twice daily and DuoNebs every 6 hours scheduled. White cell count normalized by day of discharge. Overall doing well. Plan to continue her Singulair at discharge. Complete antibiotics and steroids as an outpatient. Medically stable for discharge home. Would benefit from home health for monitoring and nursing eval's to monitor vitals and oxygen compliance along with medication compliance. Given general weakness, recommend home health PT and OT. Lastly, noted to have some edema in her lower extremity. Initiated on Lasix on day of discharge with good response. Resume Bevespi at discharge Hypertension History of CVA Hyperlipidemia - Continue Lipitor 80 mg nightly, aspirin 81 mg daily, Eliquis 5 mg twice daily, irbesartan 150 mg daily, Toprol succinate 25 mg daily Mood disorder: Continue Cymbalta 30 mg daily Neuropathy: Continue gabapentin 600 mg 3 times a day tobacco user: smoking cessation education provided. Nicotine patch. Spent 30 minutes in discharge counseling, documentation, chart review, and direct care with patient. Exam Data for Last 24 hours Vital signs and Labs for Last 24 Hours: Temp Pulse Resp BP Pulse Ox O2 Del Method O2 Flow Rate 98.3 F 80 17 131/62 91 L Nasal Cannula 3 04/11/23 08:00 04/11/23 08:00 04/11/23 08:00 04/11/23 08:00 04/11/23 08:00 04/11/23 08:00 04/11/23 08:00 FiO2 28 04/09/23 23:52 Laboratory Results - last 24 hr 04/10/23 05:45: Total Counted 100, Neutrophils % (Manual) 93 H, Band Neutrophils % 1.0, Lymphocytes % (Manual) 2 L, Monocytes % (Manual) 4, Platelet Estimate Normal, Hypochromasia 1+, Anisocytosis 1+, Sodium 135 L, Potassium 4.7, Chloride 106, Carbon Dioxide 31 H, Anion Gap 2.7 L, BUN 20 H, Creatinine 0.50 L, Estimated Creat Clear 74, Estimated GFR 123, Est GFR ( Amer) 149, Glucose 148 H, Calcium 8.4, Magnesium 1.6, Total Bilirubin 0.3, AST 20, ALT 12 D, Alkaline Phosphatase 95, Total Protein 5.3 L, Albumin 2.4 L D, Globulin 2.9, Albumin/Globulin Ratio 0.8 L 04/10/23 13:13: POC Glucose 201 H 04/10/23 16:27: POC Glucose 187 H 04/10/23 20:33: POC Glucose 274 H 04/11/23 05:17: Sodium 136, Potassium 4.0, Chloride 105, Carbon Dioxide 32 H, Anion Gap 3.0 L, BUN 19 H, Creatinine 0.50 L, Estimated Creat Clear 74, Estimated GFR 123, Est GFR ( Amer) 149, Glucose 94 D, Calcium 8.4, Total Bilirubin 0.2, AST 22, ALT 14, Alkaline Phosphatase 86, Total Protein 5.3 L, Albumin 2.4 L, Globulin 2.9, Albumin/Globulin Ratio 0.8 L 04/11/23 06:09: POC Glucose 109 I & O for Last 24 hours: Intake & Output 04/08/23 04/09/23 04/10/23 04/11/23 23:59 23:59 23:59 23:59 Intake Total 1623 / 1623 510 / 660 150 / 150 Output Total 200 / 200 500 / 500 0 / 0 Balance 1423 / 1423 10 / 160 150 / 150 Weight 84.368 kg 84.323 kg 84.323 kg 84.323 kg Constitutional Constitutional: no acute distress, obese and chronically ill appearing *Routine HEENT Exam Head: Present normocephalic Eye: Present EOMI and PERRL ENT: Present mucous membranes moist *Routine Neck Exam Neck: Present supple; Absent lymphadenopathy *Routine Respiratory Exam Respiratory: Present prolonged expiratory phase, rhonchi, wheezes and normal respiratory effort; Absent crackles *Routine Cardiovascular Exam Cardiovascular: Present RRR *Routine Abdominal Exam Abdominal: Present soft and normoactive bowel sounds; Absent tenderness *Routine Rectal Exam Patient deferred: visual exam *Routine Exam Patient deferred: external exam *Routine Extremities Exam Extremities: Present edema (Tense 2+ edema left lower extremity, 1+ edema right lower extremity. Chronic stasis changes on left leg. Ring from her sock.); Absent cyanosis or clubbing *Routine Skin Exam Skin: Present warm; Absent rash *Routine Neurological Exam Neurological: Present alert, oriented X3 and moving all extremities; Absent altered mental status Results Data Completed and Pending Labs on day of discharge: Labs from last 24 hours 04/11/23 04/11/23 04/10/23 06:09 05:17 20:33 Total Counted Neutrophils % (Manual) Band Neutrophils % Lymphocytes % (Manual) Monocytes % (Manual) Platelet Estimate Hypochromasia Anisocytosis Sodium 136 Potassium 4.0 Chloride 105 Carbon Dioxide 32 H Anion Gap 3.0 L BUN 19 H Creatinine 0.50 L Estimated Creat Clear 74 Estimated GFR 123 Est GFR ( Amer) 149 Glucose 94 D POC Glucose 109 274 H Calcium 8.4 Magnesium Total Bilirubin 0.2 AST 22 ALT 14 Alkaline Phosphatase 86 Total Protein 5.3 L Albumin 2.4 L Globulin 2.9 Albumin/Globulin Ratio 0.8 L 04/10/23 04/10/23 04/10/23 16:27 13:13 05:45 Total Counted 100 Neutrophils % (Manual) 93 H Band Neutrophils % 1.0 Lymphocytes % (Manual) 2 L Monocytes % (Manual) 4 Platelet Estimate Normal Hypochromasia 1+ Anisocytosis 1+ Sodium 135 L Potassium 4.7 Chloride 106 Carbon Dioxide 31 H Anion Gap 2.7 L BUN 20 H Creatinine 0.50 L Estimated Creat Clear 74 Estimated GFR 123 Est GFR ( Amer) 149 Glucose 148 H POC Glucose 187 H 201 H Calcium 8.4 Magnesium 1.6 Total Bilirubin 0.3 AST 20 ALT 12 D Alkaline Phosphatase 95 Total Protein 5.3 L Albumin 2.4 L D Globulin 2.9 Albumin/Globulin Ratio 0.8 L DS: Diagnosis Discharge Diagnosis (1) Acute hypoxemic respiratory failure: Status: Acute Code(s): J96.01 - Acute respiratory failure with hypoxia (2) Bronchitis: Status: Acute Code(s): J40 - Bronchitis, not specified as acute or chronic (3) Elevated lactic acid level: Status: Acute Code(s): R79.89 - Other specified abnormal findings of blood chemistry (4) HTN (hypertension): Status: Acute Code(s): I10 - Essential (primary) hypertension Qualifiers: Hypertension type: unspecified Qualified Code(s): I10 - Essential (primary) hypertension (5) CVA (cerebral vascular accident): Status: Acute Code(s): I63.9 - Cerebral infarction, unspecified Qualifiers: CVA mechanism: unspecified Qualified Code(s): I63.9 - Cerebral infarction, unspecified (6) Smoking greater than 30 pack years: Status: Acute Code(s): F17.210 - Nicotine dependence, cigarettes, uncomplicated Meds Home Medications and Allergies Home Medications Medication Instructions Recorded Confirmed Type apixaban 5 mg tablet (Eliquis) 5 mg PO BID Blood Thinner 01/03/22 04/09/23 History cholecalciferol (vitamin D3) 1,250 1,250 mcg PO MONTHLY Supplement 01/03/22 04/09/23 History mcg (50,000 unit) capsule hydroxyzine HCl 25 mg tablet 25 mg PO BIDP PRN Anxiety 01/03/22 04/09/23 History gabapentin 600 mg tablet 600 mg PO TID NERVE PAIN 01/05/22 04/08/23 History ferrous sulfate 325 mg (65 mg 325 mg PO QODHS Supplement 10/24/22 04/09/23 History iron) tablet metformin 500 mg tablet 500 mg PO BIDWMEAL Diabetes 10/24/22 04/09/23 History metoprolol succinate 25 mg 25 mg PO DAILY High Blood Pressure 10/24/22 04/09/23 History tablet,extended release 24 hr montelukast 10 mg tablet 10 mg PO PM Copd 12/27/22 04/09/23 History duloxetine 30 mg capsule,delayed 30 mg PO DAILY MOOD 01/31/23 04/09/23 History release aspirin 81 mg tablet,delayed 81 mg PO DAILY Blood Thinner 04/09/23 04/09/23 History release atorvastatin 80 mg tablet 80 mg PO HS Cholesterol 04/09/23 04/09/23 History cholecalciferol (vitamin D3) 125 125 mcg PO DAILY Supplement 04/09/23 04/09/23 History mcg (5,000 unit) tablet glycopyrrolate 9 mcg-formoterol 2 puff inhalation BIDRT Copd 04/09/23 04/09/23 History 4.8 mcg HFA aerosol inhaler (Bevespi Aerosphere) losartan 25 mg tablet 25 mg PO DAILY High Blood Pressure 04/09/23 04/09/23 History magnesium oxide 400 mg PO HS Supplement 04/09/23 04/09/23 History omeprazole 40 mg capsule,delayed 40 mg PO DAILY Acid Reflux 04/09/23 04/09/23 History release potassium chloride 20 mEq 20 meq PO DAILY Supplement 04/09/23 04/09/23 History tablet,extended release tizanidine 4 mg tablet 4 mg PO Q8HP PRN Muscle Spasm 04/09/23 04/09/23 History New Prescriptions to Start Prescriptions: Allergies Allergy/AdvReac Type Severity Reaction Status Date / Time Penicillins AdvReac Mild rash/itchin Verified 03/23/23 15:51 g vancomycin AdvReac Mild rash/itchin Verified 03/23/23 15:51 g acetaminophen [From Vicodin] AdvReac Verified 03/23/23 15:51 hydrocodone [From Vicodin] AdvReac Verified 03/23/23 15:51 piperacillin [From Zosyn] AdvReac rash/itchin Verified 03/23/23 15:51 g tazobactam [From Zosyn] AdvReac rash/itchin Verified 03/23/23 15:51 g Discharge Plan Disposition Patient Disposition: Home Health Service Condition: Fair Discharge Order Discharge Orders: Discharge Order (Routine); Ordered 04/11/23 Ordered By: Ollie Shannon Follow up Plan Follow up with: Debora Robles APRN [Primary Care Provider] - 04/18/23 11:00 am (04/18/2023 1100 ) Prescriptions/Medication Reconciliation: Continued Eliquis 5 mg tablet 5 mg PO BID cholecalciferol (vitamin D3) 1,250 mcg (50,000 unit) capsule 1,250 mcg PO MONTHLY hydroxyzine HCl 25 mg tablet 25 mg PO BIDP PRN (Reason: Anxiety) gabapentin 600 mg tablet 600 mg PO TID Patient Comments: TAKE 1 TABLET BY MOUTH THREE TIMES DAILY FOR 30 DAYS montelukast 10 mg tablet 10 mg PO PM Patient Comments: TAKE 1 TABLET BY MOUTH ONCE DAILY IN THE EVENING duloxetine 30 mg capsule,delayed release(DR/EC) 30 mg PO DAILY metformin 500 mg tablet 500 mg PO BIDWMEAL ferrous sulfate 325 mg (65 mg iron) tablet 325 mg PO QODHS metoprolol succinate 25 mg tablet extended release 24 hr 25 mg PO DAILY atorvastatin 80 mg tablet 80 mg PO HS tizanidine 4 mg tablet 4 mg PO Q8HP PRN (Reason: Muscle Spasm) Patient Comments: TAKE 1 TABLET BY MOUTH EVERY 6-8 HOURS NEEDED ( DO NOT EXCCED 3 TABS IN 24 HOURS) omeprazole 40 mg capsule,delayed release(DR/EC) 40 mg PO DAILY Patient Comments: TAKE 1 CAPSULE BY MOUTH ONCE DAILY BEFORE A MEAL aspirin 81 mg tablet,delayed release (DR/EC) 81 mg PO DAILY Patient Comments: TAKE 1 TABLET BY MOUTH ONCE DAILY losartan 25 mg tablet 25 mg PO DAILY cholecalciferol (vitamin D3) 125 mcg (5,000 unit) tablet 125 mcg PO DAILY Patient Comments: TAKE 1 TABLET BY MOUTH ONCE DAILY Bevespi Aerosphere 9-4.8 mcg HFA aerosol inhaler 2 puff INHALATION BIDRT magnesium oxide 400 mg magnesium Tablet 400 mg PO HS potassium chloride 20 mEq tablet extended release 20 meq PO DAILY Other Ambulatory Orders: Home Medical Equipment (Routine) Location: None Selected Ordered By: Ollie Shannon Problem Reconciliation Problems Reviewed?: Yes Patient Discharge Instructions ACTIVITY: Continue current activity DIET: continue same diet Patient Instructions: DI for Stroke-Ischemic, DI for Acute Bronchitis, DI for Respiratory Failure Providers Primary Care Provider: Debora Robles Admit Provider: Ollie Shannon Attending Provider: Ollie Shannon
[2023-04-11] MEDS: TIZANIDINE 4MG TABLET 4 MG PO (08:47)
[2023-04-11] MEDS: ASPIRIN EC 81MG TABLET 81 MG PO (08:47)
[2023-04-11] MEDS: DULOXETINE 30MG CAPSULE.DR 30 MG PO (08:48)
[2023-04-11] MEDS: PANTOPRAZOLE 40MG TABLET 40 MG PO (08:48)
[2023-04-11] MEDS: APIXABAN 5MG TABLET 5 MG PO (08:48)
[2023-04-11] MEDS: METOPROLOL SUCCINATE XL 25MG TABLET 25 MG PO (08:48)
[2023-04-11] MEDS: GABAPENTIN 600MG TABLET 600 MG PO (08:48)
[2023-04-11] MEDS: IRBESARTAN 150MG TAB 150 MG PO (08:48)
[2023-04-11] MEDS: FERROUS SULFATE 325MG TABLET 325 MG PO (08:48)
[2023-04-11] MEDS: BUMETANIDE 1MG/4ML VIAL 1 MG IV (08:49)
[2023-04-11] MEDS: predniSONE 20MG TAB 40 MG PO (08:49)
--- NOTE | 2023-04-11 09:03 | CARE MANAGER ---
Patient will require continuous Oxygen. She currently uses [facility] for her night time Oxygen. Information sent to [facility] for patient to receive portable and to give updated order.
--- NOTE | 2023-04-11 09:21 | SW/DCPLANNER ---
Addendum entered by Cynthia Salinas 04/11/23 10:38: Ellen ferro/ [facility] stated that services will begin 04/13 for this patient. Original Note: I spoke w/ patient regarding plans once medically stable for discharge. MD ordered home health services for this patient: patient is agreeable. Patient does not have a preference for home health agency: information/order has been faxed to [facility]. Patient will discharge home later today.
[2023-04-11] MEDS: NYSTATIN TOPICAL POWDER 30GM TP (09:55)
--- NOTE | 2023-04-11 10:55 | PC.NURSE ---
Called to bedside by RN per Dr. Shannon Pt's insurance requires a 6 minute walk test in order for Pt to go home with Oxygen. Pt currently on 3 LPM NC SPO2 93%. Pt placed on Room Air to conduct 6 Minute Walk Test with-in 30 seconds Pt's SPO2 84%, 6 Minute Walk Test not performed for this reason. Pt states she has home oxygen that she wears at night and thinks she will need it during the day also.
[2023-04-11 11:01] VITALS: PULSE 57; PULSE 59; O2SAT 93
[2023-04-11] MEDS: humaLOG 100 UNITS/ML 3ML VIAL (SSI) SQ (11:49)
[2023-04-11 11:51] LABS: POC Glucose,Bedside 194 (70-110)
--- NOTE | 2023-04-14 12:08 | CARE MANAGER ---
Attempted to contact patient related to hospital discharge x 2. VM was full. LICHA Aguilar
== END 2023-04-11 13:23 | disposition home health service (06) | DRG 189 ==
LOC: ER 18:52 → ICU 04-09 01:58
PROVIDERS: Nurse Practitioner Family; Admitting Provider Internal Medicine Adolescent Medicine; Emergency Provider Emergency Medicine; PCP Nurse Practitioner Family; Visit Provider Internal Medicine Adolescent Medicine
DX: J96.01 Acute respiratory failure with hypoxia (principal); J43.9 Emphysema, unspecified; I10 Essential (primary) hypertension; F17.210 Nicotine dependence, cigarettes, uncomplicated; Z86.73 Personal history of transient ischemic attack (TIA), and cerebral infarction without residual deficits; E78.5 Hyperlipidemia, unspecified; F39 Unspecified mood [affective] disorder; G62.9 Polyneuropathy, unspecified; J40 Bronchitis, not specified as acute or chronic; E11.9 Type 2 diabetes mellitus without complications
CPT/HCPCS: 36415; 71046; 80053; 82803; 82962; 83605; 83735; 84484; 85007; 85025; 87636; 93005; 94640; 94760; 99291; J0456; J1956

== ENCOUNTER 2023-05-18 09:02 | Outpatient (CLI) | payer MEDICARE, MEDICAID, SELFPAY ==
--- NOTE | 2023-05-18 09:10 | MR_ITS ---
FINAL REPORT CLINICAL HISTORY: Eval for metastasis. hx cva. constant headache. blurred vision COMPARISON: 02/21/2023 FINDINGS: Multiplanar MR imaging of the brain was performed without and with contrast, with attention to the posterior fossa, cerebellopontine angles and internal auditory canals. There is no evidence of intracranial hemorrhage or mass. The ventricular size is within normal limits. There is no evidence of shift of the midline structures. No area of abnormal restricted diffusion is identified. Normal major vessel vascular flow voids are seen. No abnormal contrast enhancement is identified within the brain. There is left frontal encephalomalacia from prior infarct. No mass or abnormal contrast enhancement is seen within the cerebellopontine angles or internal auditory canals. No focal abnormality is identified of the temporal bones. IMPRESSION: No acute intracranial abnormality identified. No mass or abnormal contrast enhancement identified within the cerebellopontine angles or internal auditory canals. Reviewed, Interpreted and Dictated by Wallace Kirk III, MD Transcribed by Patricia Henriquez Authenticated and [facility]
[2023-05-18 09:33] LABS: Blood Urea Nitrogen 30 mg/dl (7-17); Estimated Glomerular Filt Rate 63 ml/min (>60); GFR (African American) 76 ML/MIN (>60)
[2023-05-18] MEDS: GADOTERIDOL INJ 17ML SYRINGE 16 ML IV (10:15)
[2023-05-18] MEDS: SODIUM CHLORIDE 0.9% 10ML SYR (RAD ONLY) 10 ML IV (10:15)
== END 2023-05-18 23:59 ==
LOC: RAD 09:03
PROVIDERS: PCP Nurse Practitioner Family; Visit Provider Nurse Practitioner Family
DX: R94.2 Abnormal results of pulmonary function studies (principal); R47.89 Other speech disturbances; Z86.73 Personal history of transient ischemic attack (TIA), and cerebral infarction without residual deficits
CPT/HCPCS: 36415; 70553; 82565; 84520; A9576

== ENCOUNTER 2023-06-02 13:47 | Outpatient (CLI) | payer MEDICARE, MEDICAID, SELFPAY | END 2023-06-02 23:59 | LOC: RT 13:48 | PROVIDERS: PCP Nurse Practitioner Family; Visit Provider Nurse Practitioner Family | DX: R94.2 Abnormal results of pulmonary function studies (principal); G47.34 Idiopathic sleep related nonobstructive alveolar hypoventilation; I63.9 Cerebral infarction, unspecified | CPT/HCPCS: 94762 ==

== ENCOUNTER 2023-06-23 13:38 | Outpatient (CLI) | payer MEDICARE, MEDICAID, SELFPAY | END 2023-06-23 23:59 | disposition home or self-care (01) | LOC: RT 13:38 | PROVIDERS: PCP Nurse Practitioner Family; Visit Provider Specialist | DX: I63.9 Cerebral infarction, unspecified (principal); J44.9 Chronic obstructive pulmonary disease, unspecified; G47.34 Idiopathic sleep related nonobstructive alveolar hypoventilation | CPT/HCPCS: 94762 ==

== ENCOUNTER 2023-07-28 13:37 | Outpatient (CLI) | payer MEDICARE, MEDICAID, SELFPAY ==
--- NOTE | 2023-07-28 14:14 | MM_ITS ---
PROCEDURE INFORMATION: Exam: Bilateral Screening 3D Mammography Exam date and time: 07/28/2023 2:07 PM Age: 67 years old Clinical indication: Baseline. No family history of breast cancer. TECHNIQUE: Imaging protocol: Bilateral Screening tomosynthesis and 2D mammography including computer-aided detection (CAD) when performed. COMPARISON: None. If prior mammograms are provided, I am happy to add an addendum. FINDINGS: MAMMOGRAPHY: Breast composition: There are scattered areas of fibroglandular density. Mass: None. Architectural distortion: None. Calcifications: No suspicious calcifications. Asymmetric density: Broad focal asymmetry/asymmetrically dense breast tissue in the anterior upper outer right breast. Skin thickening: None. Axillary adenopathy: None. Other findings: Loop recorder in the left upper inner quadrant posteriorly, limits evaluation and accentuates the importance of clinical breast exam. IMPRESSION: Patient will be recalled for right diagnostic mammography with spot compression in CC and MLO, full field lateral and right sonography for further evaluation broad asymmetry or asymmetrically dense breast tissue in the right breast. ASSESSMENT: BI-RADS Category 0: Incomplete: Need Additional Imaging Evaluation and/or Prior Mammograms for Comparison
== END 2023-07-28 23:59 | disposition home or self-care (01) ==
LOC: RAD 13:38
PROVIDERS: PCP Nurse Practitioner Family; Visit Provider Nurse Practitioner Family
DX: Z12.31 Encounter for screening mammogram for malignant neoplasm of breast (principal)
CPT/HCPCS: 77063; 77067

== ENCOUNTER 2023-12-15 10:32 | Emergency (ER) | payer MEDICARE, MEDICAID, SELFPAY ==
[2023-12-15 10:58] VITALS: BP 145/72; PULSE 95; RESP 18; TEMP 37.2; O2SAT 95; BMI 32.9
--- NOTE | 2023-12-15 11:08 | PC.NURSE ---
OBTAINED VITALS AND ROUNDED PT LET THEM KNOW SOON A ROOM IS AVAILABLE WE WOULD GET THEM BACK TO ROOM
--- NOTE | 2023-12-15 11:41 | PC.NURSE ---
Pt left from lobby without being seen
[2023-12-15 12:30] VITALS: BP 145/72; PULSE 95; RESP 18; TEMP 37.2; O2SAT 95
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
== END 2023-12-15 12:31 | disposition left against medical advice (07) ==
LOC: ER 12:30
PROVIDERS: Emergency Provider Emergency Medicine; PCP Nurse Practitioner Family
DX: Z53.21 Procedure and treatment not carried out due to patient leaving prior to being seen by health care provider (principal); M25.551 Pain in right hip
CPT/HCPCS: 99281

== ENCOUNTER 2024-07-18 10:58 | Outpatient (RCR) | payer MEDICARE, MEDICAID, SELFPAY | END 2024-07-18 23:59 | disposition home or self-care (01) | LOC: PT 10:58 | PROVIDERS: PCP Nurse Practitioner Family; Visit Provider Nurse Practitioner Family | DX: L04.3 Acute lymphadenitis of lower limb (principal) | CPT/HCPCS: 97163 ==

== ENCOUNTER 2024-08-19 12:49 | Outpatient (CLI) | payer MEDICARE, MEDICAID, SELFPAY ==
--- OUTSIDE RECORDS SUMMARY | 2024-07-18 08:59 | XMS_ITS | Continuity of Care Document ---
Author Organization [facility] Address [address] [place] [address] Phone Care Team Providers Care Linen Aide Name Role Phone Travis MSN, [employer], Debora Unavailable Unavai lable Allergies, Adverse Reactions, Alerts Substance Reaction Status Criticality TAZOBACTAM SODIUM Active No Informa tion PIPERACILLIN SODIUM Active No Infor mation PENICILLIN Active No Information vancomycin Active No Information HYDROCODONE BITARTRATE Active No In formation acetaminophen Active No Information Medications Medication Instructions Dosage Effective Dates (start - stop) Status Comments Cymbalta 30 mg capsule,delayed release Take 1 capsule by mouth once daily - Active omeprazole 40 mg capsule,delayed release TAKE 1 CAPSULE BY MOUTH ONCE DAILY BEFORE A MEAL - Active metformin 500 mg tablet take 1 tablet by oral route 2 times every day with morning and evening meals 500 MG - Active metoprolol succinate ER 25 mg tablet,extended release 24 hr Take 1 tablet by mouth once daily - Active hydroxyzine HCl 25 mg tablet Take 1 tablet by mouth twice daily - Active gabapentin 600 mg tablet TAKE 1 TABLET BY MOUTH THREE TIMES DAILY - Active tizanidine 4 mg tablet TAKE 1 TABLET BY MOUTH EVERY 6 TO 8 HOURS NEEDED NOT TO EXCEED 3 DOSES IN 24 HOURS - Active Eliquis 5 MG Oral Tablet Take 1 tablet by mouth twice daily - Active Montelukast Sodium 10 MG Oral Tablet TAKE 1 TABLET BY MOUTH ONCE DAILY IN THE EVENING - Active Atorvastatin Calcium 80 MG Oral Tablet Take 1 tablet by mouth once daily - Active ferrous sulfate 325 mg (65 mg iron) tablet take 1 tablet by oral route every other day - Active Vitamin D3 125 mcg (5,000 unit) tablet Take 1 tablet by mouth once daily - Active TRUEplus Lancets 33 gauge TO BE USED TO CHECK BS TWICE DAILY - Active DX: E11.51 True Metrix Glucose Test Strip To be used to check BS two times daily - Active To be mailed to [facility] office- [address] [place] [address] aspirin 81 mg chewable tablet chew 1 tablet by oral route every day 81 MG - Active magnesium 250 mg tablet take 1 tablet by oral route every evening on the first one or two days of cycle, as needed 1 tablet - Active potassium chloride ER 20 mEq tablet,extended release take 1 tablet by oral route every day with food 20 MEQ - Active albuterol sulfate HFA 90 mcg/actuation aerosol inhaler inhale 2 puff by inhalation route every 4 - 6 hours as needed 180 MCG - Active True Metrix Glucose Meter kit To use to check BS bid - Active To be mailed to the [facility] OFFICE PLEASE [address] [facility] [address] Lasix 20 mg tablet take 1 tablet by oral route every day as needed - Active Advance Directives Directive Yes / No Effective Date File Name No Information Encounters Encounter Description Practice Location Reason(s) For Visit Diagnoses Date Provider [facility], [address] [place] [address], [address], tel:[phone] [facility] Unspecified open wound, left lower leg, initial encounter 5 Travis Cazares. [address] [place], [place], [id number] , . tel:[phone] [facility], [address] [place] [address], [address], tel:[phone] [facility] Follow up on labs (chief complaint) Body mass index [BMI] 35.0-35.9, adultAcute lymphadenitis of legDiabetes due to underlying condition w/ diabetic neuropathyHyperlipidemia , unspecifiedIron deficiency anemia, unspecifiedSkin parasites 5 Robles Debora. [address] [place], [place], [id number] , [place]. tel:[phone] [facility], [address] [place] [address], [facility], tel:[phone] [facility] [place] f/u hospital stay (chief complaint) Type 2 diabetes mellitus with diabetic peripheral angiopathy without gangreneBody mass index [BMI] 34.0-34.9, adultChronic DVT of left legEncounter for therapeutic drug level monitoringEssential (primary) hypertensionIron deficiency anemia, unspecifiedPersonal history of nicotine dependenceSolitary lung noduleAcute lymphadenitis of legDiabetes due to underlying condition w/ diabetic neuropathy 5 Robles Debora. [address] [place], [place], [id number] , [place]. tel:[phone] [facility], [address] [place] [address], [facility], tel:[phone] [facility] [place] No Information 5 Robles Debora. [address] [place], [place], [id number] , [place]. tel:[phone] [facility], [address] [place] [address], [facility], [place] tel:[phone] [facility] No Information 0 5 Rolbes Debora. [address] [place], [place], [id number] , [place]. tel:[phone] [facility], [address] [place] [address], [facility], tel:[phone] [facility] No Information 0 5 Robles Debora. [address] [place], [place], [id number] , . tel: [phone] [facility], [address] [place] [address], [facility], tel:[phone] [facility] [place]IT[place]OT[place] Depression Screening (chief complaint)f ollow up and med refills (chief complaint) Encounter for screening for depressionBody mass index [BMI] 35.0-35.9, adultAdenofibrosis of right breastConstipationCoughD epression, unspecifiedDiabetes due to underlying condition w/ diabetic neuropathyEssential (primary) hypertensionGERD disease w/ esophagitis, w/o bleedingGeneralized edemaHyperlipidemia, unspecifiedIron deficiency anemia, unspecifiedOther half-way (current) drug therapyVitamin B12 deficiencyVitamin D deficiencyEncounter for immunizationPersonal history of nicotine dependenceOther bursitis of hip, right hipEncounter for therapeutic drug level monitoring 4 Travis Enriquezissa. [address] [place], [place], [id number] , . tel: [phone] [facility], [address] [place] [address], [facility], [place] tel:[phone] [facility] JOSE lab collection (chief complaint) Type 2 diabetes mellitus with diabetic peripheral angiopathy without gangreneOther long term care social worker (current) drug therapy 4 Travis Enriquezissa. [address] [place] [address], [id number] , [place]. tel: [phone] [facility], [address] [place] [address], [facility], [place] tel:[phone] [facility] [place] No Information 4 Travis Enriquezissa. [address] [place] [address], [id number] , . tel: [phone] [facility], [address] [place] [address], [facility], [place] tel:[phone] [facility] [place] No Information 2- 4 Robles Debora. [address] [place], [place], [id number] , [place]. tel:[phone] [facility], [address] [place] [address], [facility], tel:[phone] [facility] [place] Adenofibrosis of right breast 2 4 Robles Debora. [address] [place], [place], [id number] , [place]. tel: [phone] [facility], [address] [place] [address], [facility], [place] tel:[phone] [facility] [place] B12 INJECTION (chief complaint) Vitamin B12 deficiency 3 4 Robles Debora. [address] [place], [place], [id number] , [place]. tel: [phone] [facility], [address] [place] [address], [facility], [place] tel:[phone] [facility] [place] b12 injection (chief complaint) Vitamin B12 deficiency June- 4 Robles Debora. [address] [place], [place], [id number] , [place]. tel: [phone] [facility], [address] [place] [address], [facility], [place] tel:[phone] [facility] [place] B12 INJECTION (chief complaint)M EDICATION REFILL (chief complaint) Vitamin B12 deficiency June-2 0 4 Robles Debora. [address] [place], [place], [id number] , [place]. tel: [phone] [facility], [address] [place] [address], [facility], [place] tel:[phone] [facility] [place] b12 # 3 of 6 (chief complaint) Vitamin B12 deficiency - 4 Robles Debora. [address] [place], [place], [id number] , [place]. tel:[phone] [facility], [address] [place] [address], [facility], tel:[phone] [facility] [place] B12 injection (chief complaint) Vitamin B12 deficiency 4 Rboles Debora. [address] [place], [place], [id number] , [place]. tel: [phone] [facility], [address] [place] [address], [facility], tel:[phone] [facility] [place] skin concern (chief complaint) Body mass index [BMI] 33.0-33.9, adultScar - 4 Robles Debora. [address] [place], [place], [id number] , . tel: [phone] [facility], [address] [place] [address], [facility], tel:[phone] [facility] [place] f/u on labs (chief complaint) Vitamin B12 deficiencyBody mass index [BMI] 33.0-33.9, adultChronic DVT of left legCOPDEssential (primary) hypertensionHyperlipidem ia, unspecifiedIron deficiency anemia, unspecifiedPersonal history of nicotine dependenceType 2 diabetes mellitus with diabetic peripheral angiopathy without gangreneVitamin D deficiencyEncntr screen mammogram for malignant neoplasm of breast 4 Robles Debora. [address] [place], [place], [id number] , [place]. tel: [phone] [address], [facility], tel:[phone] [facility] [place] Routine labs (chief complaint) Extreme povertyUnspecified problems related to employmentType 2 diabetes mellitus with diabetic peripheral angiopathy without gangreneOther half-way (current) drug therapy 4 Robles Debora. [address] [place], [place], [id number] , [place]. tel:[phone] [facility], [address] [place] [address], [facility], tel:[phone] [facility] f/u (chief complaint) Body mass index [BMI] 33.0-33.9, adultChronic emphysematous bronchitisSolitary lung noduleOther long term care social worker (current) drug therapy 4 Robles Debora. [address] [place], [place], [id number] , [place]. tel:[phone] [facility], [address] [place] [address], [facility], tel:[phone] [facility] cough and chest congestion (chief complaint) CoughBody mass index [BMI] 33.0-33.9, adultCOVID-19 4 Robles Debora. [address] [place], [place], [id number] , [place]. tel:[phone] [facility], [address] [place] [address], [facility], tel:[phone] [facility] black stool (chief complaint) Body mass index [BMI] 33.0-33.9, adultIron deficiency anemia, unspecifiedConstipationS olitary lung noduleEssential (primary) hypertensionAt risk for fallingCerebral infarctionType 2 diabetes mellitus with diabetic peripheral angiopathy without gangrene 4 Robles Debora. [address] [place], [place], [id number] , [place]. tel:[phone] [facility], [address] [place] [address], [facility], tel:[phone] [facility] F/u testing (chief complaint) Other cholelithiasis w/o obstructionHypomagnesemi aCerebral infarctionSolitary lung noduleHyperlipidemia, unspecifiedBody mass index [BMI] 34.0-34.9, adultPersonal history of nicotine dependence 4 Robles Debora. [address] [place], [place], [id number] , . tel: [phone] [facility], [address] [place] [address], [facility], tel:[phone] [facility] [place] Cerebral infarction, unspecifiedSolitary lung noduleOther cholelithiasis without obstruction 3 Robles Debora. [address] [place], [place], [id number] , . tel: [phone] [facility], [address] [place] [address], [facility], tel:[phone] [facility] [place] ER Follow up (chief complaint) AphasiaInsomniaHypokalem iaHypomagnesemiaMonocyto sisNeutropenia 3 Robles Debora. [address] [place], [place], [id number] , [place]. tel: [phone] [facility], [address] [place] [address], [facility], tel:[phone] [facility] [place] f/u chronic back/leg pain (chief complaint) AphasiaApraxiaEssential (primary) hypertensionLow back painDiabetes due to underlying condition w/ diabetic neuropathyOther half-way (current) drug therapy 3 Robles Debora. [address] [place], [place], [id number] , [place]. tel: [phone] [facility], [address] [place] [address], [facility], tel:[phone] [facility] [place] Aquired solitary renal cyst 3 Robles Debora. [address] [place], [place], [id number] , [place]. tel: [phone] [facility], [address] [place] [address], [facility], tel:[phone] [facility] hospitla f/u (chief complaint) Body mass index [BMI] 36.0-36.9, adultGeneralized edemaInsomniaLow back painLymphedema, not elsewhere classifiedType 2 diabetes mellitus w/ diabetic peripheral angiopathy w/o gangreneVitamin D deficiencyDepression, unspecified Dec-0 3 Robles Debora. [address] [place], [place], [id number] , [place]. tel: [phone] [facility], [address] [place] [address], [facility], [phone] [facility] [place] Follow up on labs (chief complaint) Type 2 diabetes mellitus w/ diabetic peripheral angiopathy w/o gangreneNon-pressure chronic ulcer of other part of left foot w/ fat layer exposedArteriosclerosis of united keetoow[place] arteries of bilateral legs w/ intermittent claudicationGeneralized edemaLymphedema, not elsewhere classifiedChronic diastolic (congestive) heart failureChronic DVT of left legObstructive sleep apnea (adult) (pediatric)Syncope and collapseBariatric surgery statusBody mass index [BMI] 36.0-36.9, adultCOPDHyperlipidemia, unspecifiedRestless legs syndromeLow back pain Sep-1 3 Robles Debora. [address] [place], [place], [id number] , [place]. tel: [phone] [facility], [address] [place] [address], [facility], [place] tel:[phone] [facility] [place] No Information Sep-0 3 Robles Debora. [address] [place], [place], [id number] , [place]. tel:[phone] [facility], [address] [place] [address], [facility], tel:[phone] [facility] [place] FASTING LABS (chief complaint) Essential (primary) hypertensionCOPD Oct-0 3 Robles Debora. [address] [place] [address], [address] [place] [address] , . tel: [phone] [facility], [address] [place] [address], [facility], [phone] [facility] [place] follow up labs (chief complaint) Back painEssential (primary) hypertensionInsomniaIron deficiency anemia, unspecifiedType 2 diabetes mellitus without complications 3 Roblesdavid Cazares. [address] [place] [address], [address] [place] [address] , . tel: [phone] [facility], [address] [place] [address], [facility], tel:[phone] [facility] [place] New to establish (chief complaint) Encounter for screening for depressionEncounter for screening examination for other mental health and behavioral disordersGERD disease w/ esophagitis, w/o bleedingIron deficiency anemia, unspecifiedCOPDBack painRestless legs syndromeEssential (primary) hypertensionVitamin D deficiencyInsomniaBody mass index [BMI] 39.0-39.9, adultType 2 diabetes mellitus without complications 3 Travis Cazares. [address] [place] [address], [id number] , . tel: [phone] Family History Family Member Type Diagnosis Age At Onset Son Problem Alive and well Daughter Problem Alive and well Brother Problem Alive and well Paternal grandfather Problem HX UNKNOWN Father Problem Cancer, prostate Brother Problem Alive and well Paternal grandmother Problem HX UNKNOWN Mother Problem (finding) Mother Problem Cancer, lung Sister Problem Cancer, cervical Sister Problem Alive and well Sister Problem Alive and well Brother Problem Alive and well Sister Problem Alive and well Brother Problem Alive and well Maternal grandfather Problem HX UNKNOWN Maternal grandmother Problem HX UNKNOWN Brother Problem ANXIETY Immunizations Vaccine Date Status Comments COVID-19 (MOD) 12+yrs administered Source : Other Registry Influenza virus vaccine, trivalent (IIV3), split virus, preservative free, 0.5 mL dosage, for intramuscular use administered Source: Ne w Immunization Record Influenza Flulaval administered Source: N ew Immunization Record Payers Payer name Insurance type Covered alliance party ID Authoriza tipaola(s) [facility] 5240 CI [id number] Formerly [facility]- Medicaid [place] [id number] [facility] 5240 CI [id number] Formerly [facility]- Medicaid [place] [id number] Formerly [facility]- Covered Under [place] CI [id number] Social History Type Description Quantity Date Captured Comments Alcohol Use Details Unknown Caffeine Use Details Unknown Tobacco Use Status Smoking Status No Information Sex Female Sexual Orientation Straight or heterosexual June Gender Identity Female Chief Complaint And Reason For Visit No Information Plan Of Treatment Date Type Action Status Goal Vitamin B12. Due on due Goal DEXA scan. Due on due Goal Foot exam. Due on due Goal Tobacco Use Cess ation Counseling. Due on due Goal Dilated eye exam. Due on Oct due Goal ASCVD 10 year risk. Due on due Goal TSH. Due on due Goal Hemoglobin A1C. Due on due Goal Dental exam. Due on due Goal Urine microalbumin. Due on due Goal GFR. Due on due Goal Lipid panel. Due on due Goal Obtain blood Pressure. Due o n due Goal Unhealthy drug use screening due Goal CBC. Due on due Goal Follow up Plan f or abnormal BMI (Less than 18.5, greater than 25). Due on due Goal Vitamin D. Due on due Goal Depression screening. Due on due Goal Generalized Anxi ety Disorder - 7 (MAKEDA-7). Due on due Goal Influenza vaccine. Due on due Goal Urinalysis due Goal CMP. Due on due Goal Taking Aspirin o r other anti-coagulant. Due on due Goal Pneumococcal vaccine. Due on due Goal Tobacco Use Screening. Due o n due Goal Hepatitis C Screening due Goal Tobacco screening. Due on due Goal Obtain Height, Weight, and B DC. Due on due Goal Drug Abuse Scree mar Test (DAST-10). Due on due Goal ECG. Due on due Goal Diabetes screening. Due on A due Goal CMP. Due on due Goal Obtain Height, Weight, and B DC. Due on due Goal Foot exam. Due on due Goal Follow up Plan f or abnormal BMI (Less than 18.5, greater than 25). Due on due Goal Dilated eye exam. Due on Oct due Goal Dental exam. Due on 025 due Goal CBC. Due on due Goal Generalized Anxi ety Disorder - 7 (MAKEDA-7). Due on due Goal DEXA scan. Due on 5 due Goal ASCVD 10 year risk. Due on due Goal Drug Abuse Scree mar Test (DAST-10). Due on due Goal Hepatitis C Screening due Goal TSH. Due on due Goal GFR. Due on due Goal Urine microalbumin. Due on due Goal Hemoglobin A1C. Due on due Goal Lipid panel. Due on 026 due Goal Influenza vaccine. Due on due Goal Obtain blood Pressure. Due o n due Goal Tobacco Use Screening. Due o n due Goal Tobacco screening. Due on due Goal Tobacco Use Cess ation Counseling. Due on due Goal Vitamin D. Due on 6 due Goal Vitamin B12. Due on 026 due Goal ECG. Due on due Goal Unhealthy drug use screening due Goal Diabetes screening. Due on A due Goal Depression screening. Due on due Goal Pneumococcal vaccine. Due on due Goal Taking Aspirin o r other anti-coagulant. Due on due Goal Urinalysis due Goal Lifestyle education regardin g diet completed Goal Drug Abuse Scree mar Test (DAST-10). Due on due Goal Unhealthy drug use screening due Goal Follow up Plan f or abnormal BMI (Less than 18.5, greater than 25). Due on due Goal Depression screening. Due on due Goal Lipid panel. Due on 026 due Goal GFR. Due on due Goal ASCVD 10 year risk. Due on A due Goal Influenza vaccine. Due on No due Goal Foot exam. Due on 4 due Goal ECG. Due on due Goal Vitamin D. Due on 6 due Goal Tobacco screening. Due on due Goal Obtain Height, Weight, and B DC. Due on due Goal Generalized Anxi ety Disorder - 7 (MAKEDA-7). Due on due Goal DEXA scan. Due on 5 due Goal Hemoglobin A1C. Due on due Goal Tobacco Use Cess ation Counseling. Due on due Goal Dilated eye exam. Due on Oct due Goal Dental exam. Due on 025 due Goal TSH. Due on due Goal Urine microalbumin. Due on due Goal Taking Aspirin o r other anti-coagulant. Due on due Goal Diabetes screening. Due on A due Goal Pneumococcal vaccine. Due on due Goal Obtain blood Pressure. Due o n due Goal Urinalysis due Goal CBC. Due on due Goal Tobacco Use Screening. Due o n due Goal Hepatitis C Screening due Goal Vitamin B12. Due on 026 due Goal CMP. Due on due Goal Lifestyle education regardin g diet completed Goal Lifestyle education regardin g diet completed Goal Dental exam. Due on 024 due Goal Foot exam. Due on due Goal ASCVD 10 year risk. Due on due Goal Drug Abuse Scree mar Test (DAST-10). Due on due Goal Tobacco Use Screening. Due o n due Goal CBC. Due on due Goal CMP. Due on due Goal Colonoscopy. Due on 033 due Goal Hemoglobin A1C. Due on due Goal Mammogram. Due on due Goal Urine microalbumin. Due on due Goal Dilated eye exam. Due on Oct due Goal Generalized Anxi ety Disorder - 7 (MAKEDA-7). Due on due Goal GFR. Due on due Goal Obtain Height, Weight, and B DC. Due on due Goal Tobacco Use Cess ation Counseling. Due on due Goal Influenza vaccine. Due on due Goal Taking Aspirin o r other anti-coagulant. Due on due Goal Vitamin D. Due on due Goal Vitamin B12. Due on due Goal Unhealthy drug use screening due Goal Pneumococcal vaccine. Due on due Goal ECG. Due on due Goal Follow up Plan f or abnormal BMI (Less than 18.5, greater than 25). Due on due Goal Obtain blood Pressure. Due o n due Goal Hepatitis C Screening due Goal Urinalysis due Goal Depression screening. Due on due Goal DEXA scan. Due on due Goal TSH. Due on due Goal Lipid panel. Due on 029 due Goal Diabetes screening. Due on due Goal Lifestyle education regardin g diet completed Goal Dilated eye exam. Due on Oct due Goal Follow up Plan f or abnormal BMI (Less than 18.5, greater than 25). Due on due Goal ASCVD 10 year risk. Due on due Goal CMP. Due on due Goal GFR. Due on due Goal Vitamin B12. Due on due Goal Urine microalbumin. Due on due Goal Mammogram. Due on due Goal Hemoglobin A1C. Due on due Goal Obtain Height, Weight, and B DC. Due on due Goal Dental exam. Due on 024 due Goal CBC. Due on due Goal Foot exam. Due on due Goal TSH. Due on due Goal Taking Aspirin o r other anti-coagulant. Due on due Goal Hepatitis C Screening due Goal DEXA scan. Due on due Goal Tobacco Use Cess ation Counseling. Due on due Goal ECG. Due on due Goal Diabetes screening. Due on A due Goal Lipid panel. Due on 029 due Goal Urinalysis. Due on 24 due Goal Depression screening. Due on due Goal Colonoscopy. Due on 033 due Goal Generalized Anxi ety Disorder - 7 (MAKEDA-7). Due on due Goal Influenza vaccine. Due on due Goal Tobacco Use Screening. Due o n due Goal Unhealthy drug use screening due Goal Drug Abuse Scree mar Test (DAST-10). Due on due Goal Vitamin D. Due on 5 due Goal Obtain blood Pressure. Due o n due Goal Pneumococcal vaccine. Due on due Goal CBC. Due on due Goal Dental exam. Due on 024 due Goal Hepatitis C Screening due Goal Vitamin D. Due on 5 due Goal ASCVD 10 year risk. Due on due Goal GFR. Due on due Goal Foot exam. Due on 4 due Goal Urine microalbumin. Due on due Goal Diabetes screening. Due on due Goal Hemoglobin A1C. Due on due Goal Tobacco Use Screening. Due o n due Goal Vitamin B12. Due on 025 due Goal Unhealthy drug use screening due Goal Drug Abuse Scree mar Test (DAST-10). Due on due Goal Colonoscopy. Due on 033 due Goal Dilated eye exam. Due on Oct due Goal Mammogram. Due on 5 due Goal Obtain Height, Weight, and B DC. Due on due Goal DEXA scan. Due on due Goal CMP. Due on due Goal Influenza vaccine. Due on due Goal Obtain blood Pressure. Due o n due Goal Taking Aspirin o r other anti-coagulant. Due on due Goal ECG. Due on due Goal Lipid panel. Due on 029 due Goal Follow up Plan f or abnormal BMI (Less than 18.5, greater than 25). Due on due Goal Pneumococcal vaccine. Due on due Goal Generalized Anxi ety Disorder - 7 (MAKEDA-7). Due on due Goal Urinalysis. Due on 24 due Goal Tobacco Use Cess ation Counseling. Due on due Goal TSH. Due on due Goal Depression screening. Due on due Goal Tobacco Use Cess ation Counseling. Due on due Goal Follow up Plan f or abnormal BMI (Less than 18.5, greater than 25). Due on due Goal Colonoscopy. Due on 033 due Goal GFR. Due on due Goal Unhealthy drug use screening due Goal Urine microalbumin. Due on due Goal Vitamin D. Due on 5 due Goal Foot exam. Due on 4 due Goal Dilated eye exam. Due on Oct due Goal Diabetes screening. Due on due Goal Dental exam. Due on 024 due Goal Hemoglobin A1C. Due on due Goal ASCVD 10 year risk. Due on due Goal Obtain Height, Weight, and B DC. Due on due Goal Obtain blood Pressure. Due o n due Goal DEXA scan. Due on 4 due Goal Taking Aspirin o r other anti-coagulant. Due on due Goal Drug Abuse Scree amr Test (DAST-10). Due on due Goal Generalized Anxi ety Disorder - 7 (MAKEDA-7). Due on due Goal Urinalysis. Due on due Goal Vitamin B12. Due on 025 due Goal Tobacco Use Screening. Due o n due Goal CBC. Due on due Goal Lipid panel. Due on 029 due Goal Pneumococcal vaccine. Due on due Goal Hepatitis C Screening due Goal Depression screening. Due on due Goal CMP. Due on due Goal Mammogram. Due on due Goal ECG. Due on due Goal Influenza vaccine. Due on due Goal TSH. Due on due Goal Obtain Height, Weight, and B DC. Due on due Goal Vitamin D. Due on due Goal Tobacco Use Cess ation Counseling. Due on due Goal Lipid panel. Due on 029 due Goal CMP. Due on due Goal Tobacco Use Screening. Due o n due Goal Depression screening. Due on due Goal Generalized Anxi ety Disorder - 7 (MAKEDA-7). Due on due Goal Diabetes screening. Due on A due Goal Urinalysis. Due on due Goal Obtain blood Pressure. Due o n due Goal Pneumococcal vaccine. Due on due Goal Taking Aspirin o r other anti-coagulant. Due on due Goal ECG. Due on due Goal DEXA scan. Due on due Goal Influenza vaccine. Due on due Goal Drug Abuse Scree mar Test (DAST-10). Due on due Goal Hemoglobin A1C. Due on due Goal CBC. Due on due Goal TSH. Due on due Goal GFR. Due on due Goal Mammogram. Due on due Goal Urine microalbumin. Due on due Goal Vitamin B12. Due on 025 due Goal Dilated eye exam. Due on Oct due Goal Follow up Plan f or abnormal BMI (Less than 18.5, greater than 25). Due on due Goal Dental exam. Due on 024 due Goal Hepatitis C Screening due Goal Foot exam. Due on due Goal ASCVD 10 year risk. Due on due Goal Unhealthy drug use screening due Goal Colonoscopy. Due on 033 due Goal GFR. Due on due Goal Urine microalbumin. Due on due Goal Mammogram. Due on due Goal Follow up Plan f or abnormal BMI (Less than 18.5, greater than 25). Due on due Goal Hemoglobin A1C. Due on due Goal Foot exam. Due on 4 due Goal Vitamin B12. Due on 025 due Goal CBC. Due on due Goal Colonoscopy. Due on 033 due Goal ASCVD 10 year risk. Due on due Goal Dilated eye exam. Due on Oct due Goal Tobacco Use Cess ation Counseling. Due on due Goal Dental exam. Due on 024 due Goal CMP. Due on due Goal Obtain Height, Weight, and B DC. Due on due Goal DEXA scan. Due on 4 due Goal Taking Aspirin o r other anti-coagulant. Due on due Goal Drug Abuse Scree mar Test (DAST-10). Due on due Goal Generalized Anxi ety Disorder - 7 (MAKEDA-7). Due on due Goal Obtain blood Pressure. Due o n due Goal Hepatitis C Screening due Goal Tobacco Use Screening. Due o n due Goal Depression screening. Due on due Goal Urinalysis. Due on 24 due Goal ECG. Due on due Goal Unhealthy drug use screening due Goal Vitamin D. Due on due Goal Diabetes screening. Due on A due Goal Pneumococcal vaccine. Due on due Goal TSH. Due on due Goal Lipid panel. Due on 029 due Goal Influenza vaccine. Due on due Goal CBC. Due on due Goal Follow up Plan f or abnormal BMI (Less than 18.5, greater than 25). Due on due Goal Urine microalbumin. Due on due Goal GFR. Due on due Goal Tobacco Use Cess ation Counseling. Due on due Goal DEXA scan. Due on due Goal Vitamin B12. Due on 025 due Goal TSH. Due on due Goal Hemoglobin A1C. Due on due Goal Vitamin D. Due on due Goal Dental exam. Due on 024 due Goal Foot exam. Due on due Goal Tobacco Use Screening. Due o n due Goal Unhealthy drug use screening due Goal ASCVD 10 year risk. Due on due Goal Diabetes screening. Due on A due Goal Dilated eye exam. Due on Oct due Goal Drug Abuse Scree mar Test (DAST-10). Due on due Goal Obtain blood Pressure. Due o n due Goal Generalized Anxi ety Disorder - 7 (MAKEDA-7). Due on due Goal Pneumococcal vaccine. Due on due Goal ECG. Due on due Goal Hepatitis C Screening due Goal Depression screening. Due on due Goal CMP. Due on due Goal Lipid panel. Due on 029 due Goal Influenza vaccine. Due on due Goal Obtain Height, Weight, and B DC. Due on due Goal Urinalysis. Due on 24 due Goal Colonoscopy. Due on 033 due Goal Mammogram. Due on 2 due Goal Taking Aspirin o r other anti-coagulant. Due on due Goal Urine microalbumin. Due on due Goal Dental exam. Due on 024 due Goal CBC. Due on due Goal Generalized Anxi ety Disorder - 7 (MAKEDA-7). Due on due Goal Hemoglobin A1C. Due on due Goal CMP. Due on due Goal ASCVD 10 year risk. Due on due Goal Foot exam. Due on 4 due Goal DEXA scan. Due on 4 due Goal Mammogram. Due on 2 due Goal Colonoscopy. Due on 033 due Goal Dilated eye exam. Due on Oct due Goal Drug Abuse Scree mar Test (DAST-10). Due on due Goal GFR. Due on due Goal TSH. Due on due Goal Tobacco Use Screening. Due o n due Goal Follow up Plan f or abnormal BMI (Less than 18.5, greater than 25). Due on due Goal Tobacco Use Cess ation Counseling. Due on due Goal Obtain Height, Weight, and B DC. Due on due Goal Hepatitis C Screening due Goal Urinalysis. Due on 24 due Goal Pneumococcal vaccine. Due on due Goal Taking Aspirin o r other anti-coagulant. Due on due Goal Vitamin D. Due on due Goal Vitamin B12. Due on 025 due Goal Obtain blood Pressure. Due o n due Goal ECG. Due on due Goal Unhealthy drug use screening due Goal Influenza vaccine. Due on due Goal Lipid panel. Due on 029 due Goal Diabetes screening. Due on A due Goal Depression screening. Due on due Goal Generalized Anxi ety Disorder - 7 (MAKEDA-7). Due on due Goal Obtain Height, Weight, and B DC. Due on due Goal Foot exam. Due on 4 due Goal Dilated eye exam. Due on Oct due Goal Diabetes screening. Due on A due Goal Vitamin D. Due on 5 due Goal Vitamin B12. Due on 025 due Goal DEXA scan. Due on due Goal Urine microalbumin. Due on due Goal Dental exam. Due on 024 due Goal ASCVD 10 year risk. Due on due Goal Hemoglobin A1C. Due on due Goal Follow up Plan f or abnormal BMI (Less than 18.5, greater than 25). Due on due Goal GFR. Due on due Goal Tobacco Use Cess ation Counseling. Due on due Goal Drug Abuse Scree mar Test (DAST-10). Due on due Goal Influenza vaccine. Due on due Goal Obtain blood Pressure. Due o n due Goal Urinalysis. Due on 24 due Goal Pneumococcal vaccine. Due on due Goal TSH. Due on due Goal Colonoscopy. Due on 033 due Goal Lipid panel. Due on 029 due Goal Mammogram. Due on 2 due Goal Taking Aspirin o r other anti-coagulant. Due on due Goal Hepatitis C Screening due Goal CMP. Due on due Goal ECG. Due on due Goal Tobacco Use Screening. Due o n due Goal CBC. Due on due Goal Unhealthy drug use screening due Goal Depression screening. Due on due Goal Lifestyle education regardin g diet completed Goal Pneumococcal vaccine. Due on due Goal Dilated eye exam. Due on Oct due Goal ASCVD 10 year risk. Due on A due Goal Follow up Plan f or abnormal BMI (Less than 18.5, greater than 25). Due on due Goal Hemoglobin A1C. Due on due Goal Drug Abuse Scree mar Test (DAST-10). Due on due Goal Tobacco Use Screening. Due o n due Goal Mammogram. Due on 2 due Goal Hepatitis C Screening due Goal Urine microalbumin. Due on due Goal Foot exam. Due on 4 due Goal CMP. Due on due Goal GFR. Due on due Goal Dental exam. Due on 024 due Goal Obtain Height, Weight, and B DC. Due on due Goal Unhealthy drug use screening . Due on due Goal Generalized Anxi ety Disorder - 7 (MAKEDA-7). Due on due Goal DEXA scan. Due on due Goal Tobacco Use Cess ation Counseling. Due on due Goal Depression screening. Due on due Goal CBC. Due on due Goal Colonoscopy. Due on due Goal Influenza vaccine. Due on due Goal Taking Aspirin o r other anti-coagulant. Due on due Goal Urinalysis. Due on due Goal Lipid panel. Due on due Goal Diabetes screening. Due on A due Goal Obtain blood Pressure. Due o n due Goal ECG. Due on due Goal Vitamin B12. Due on due Goal Vitamin D. Due on due Goal TSH. Due on due Goal Lifestyle education regardin g diet completed Goal Foot exam. Due on due Goal GFR. Due on due Goal Drug Abuse Scree mar Test (DAST-10). Due on due Goal Dental exam. Due on due Goal Unhealthy drug use screening due Goal CBC. Due on due Goal Obtain Height, Weight, and B DC. Due on due Goal ASCVD 10 year risk. Due on A due Goal Urine microalbumin. Due on due Goal DEXA scan. Due on due Goal TSH. Due on due Goal Vitamin D. Due on 5 due Goal Tobacco Use Screening. Due o n due Goal Dilated eye exam. Due on May due Goal Hemoglobin A1C. Due on due Goal Vitamin B12. Due on 025 due Goal Mammogram. Due on 2 due Goal Hepatitis C Screening due Goal Lipid panel. Due on 029 due Goal CMP. Due on due Goal ECG. Due on due Goal Depression screening. Due on due Goal Taking Aspirin o r other anti-coagulant. Due on due Goal Diabetes screening. Due on due Goal Influenza vaccine. Due on due Goal Follow up Plan f or abnormal BMI (Less than 18.5, greater than 25). Due on due Goal Pneumococcal vaccine. Due on due Goal Colonoscopy. Due on 033 due Goal Obtain blood Pressure. Due o n due Goal Urinalysis. Due on 24 due Goal Tobacco Use Cess ation Counseling. Due on due Goal Generalized Anxi ety Disorder - 7 (MAKEDA-7). Due on due Goal CBC. Due on due Goal Urine microalbumin. Due on due Goal Dental exam. Due on 024 due Goal GFR. Due on due Goal Unhealthy drug use screening due Goal Colonoscopy. Due on 033 due Goal Foot exam. Due on 4 due Goal Dilated eye exam. Due on Mar due Goal Follow up Plan f or abnormal BMI (Less than 18.5, greater than 25). Due on due Goal Vitamin B12. Due on 025 due Goal DEXA scan. Due on due Goal Hemoglobin A1C. Due on due Goal Tobacco Use Cess ation Counseling. Due on due Goal ASCVD 10 year risk. Due on due Goal TSH. Due on due Goal Urinalysis. Due on 24 due Goal CMP. Due on due Goal Drug Abuse Scree mar Test (DAST-10). Due on due Goal Mammogram. Due on 2 due Goal Hepatitis C Screening due Goal Taking Aspirin o r other anti-coagulant. Due on due Goal Diabetes screening. Due on due Goal Pneumococcal vaccine. Due on due Goal Lipid panel. Due on 029 due Goal ECG. Due on due Goal Obtain Height, Weight, and B DC. Due on due Goal Generalized Anxi ety Disorder - 7 (MAKEDA-7). Due on due Goal Vitamin D. Due on 5 due Goal Obtain blood Pressure. Due o n due Goal Depression screening. Due on due Goal Influenza vaccine. Due on due Goal Tobacco Use Screening. Due o n due Goal Lifestyle education regardin g diet completed Goal TSH. Due on due Goal Tobacco Use Cess ation Counseling. Due on due Goal Follow up Plan f or abnormal BMI (Less than 18.5, greater than 25). Due on due Goal CBC. Due on due Goal DEXA scan. Due on 4 due Goal Colonoscopy. Due on 033 due Goal Vitamin B12. Due on 025 due Goal Unhealthy drug use screening due Goal Obtain Height, Weight, and B DC. Due on due Goal Hepatitis C Screening due Goal Generalized Anxi ety Disorder - 7 (MAKEDA-7). Due on due Goal Mammogram. Due on 2 due Goal Tobacco Use Screening. Due o n due Goal CMP. Due on due Goal Drug Abuse Scree mar Test (DAST-10). Due on due Goal Depression screening. Due on due Goal Vitamin D. Due on due Goal Influenza vaccine. Due on due Goal Obtain blood Pressure. Due o n due Goal Urinalysis. Due on due Goal ECG. Due on due Goal Pneumococcal vaccine. Due on due Goal Diabetes screening. Due on due Goal Taking Aspirin o r other anti-coagulant. Due on due Goal Lipid panel. Due on due Goal Foot exam. Due on due Goal Dilated eye exam. Due on Mar due Goal Dental exam. Due on due Goal Hemoglobin A1C. Due on due Goal ASCVD 10 year risk. Due on due Goal GFR. Due on due Goal Urine microalbumin. Due on due Goal Lifestyle education regardin g diet completed Goal Lifestyle education regardin g diet completed Goal Foot exam. Due on due Goal Dental exam. Due on due Goal Dilated eye exam. Due on Feb due Goal GFR. Due on due Goal Depression screening. Due on due Goal Follow up Plan f or abnormal BMI (Less than 18.5, greater than 25). Due on due Goal Urine microalbumin. Due on due Goal ASCVD 10 year risk. Due on due Goal Hemoglobin A1C. Due on due Goal Unhealthy drug use screening due Goal CMP. Due on due Goal Influenza vaccine. Due on due Goal Tobacco Use Screening. Due o n due Goal Vitamin D. Due on due Goal Hepatitis C Screening due Goal TSH. Due on due Goal CBC. Due on due Goal Tobacco Use Cess ation Counseling. Due on due Goal Vitamin B12. Due on 025 due Goal Colonoscopy. Due on 033 due Goal Pneumococcal vaccine. Due on due Goal DEXA scan. Due on due Goal Drug Abuse Scree mar Test (DAST-10). Due on due Goal Mammogram. Due on 2 due Goal Generalized Anxi ety Disorder - 7 (MAKEDA-7). Due on due Goal Obtain Height, Weight, and B DC. Due on due Goal Obtain blood Pressure. Due o n due Goal Lipid panel. Due on 029 due Goal Diabetes screening. Due on due Goal ECG. Due on due Goal Taking Aspirin o r other anti-coagulant. Due on due Goal Urinalysis. Due on due Goal Lifestyle education regardin g diet completed Goal Dental exam. Due on due Goal GFR. Due on due Goal Hemoglobin A1C. Due on due Goal ASCVD 10 year risk. Due on due Goal Colonoscopy. Due on due Goal Tobacco Use Screening. Due o n due Goal CMP. Due on due Goal Foot exam. Due on due Goal Vitamin D. Due on due Goal Unhealthy drug use screening due Goal Urine microalbumin. Due on due Goal Dilated eye exam. Due on Feb due Goal DEXA scan. Due on due Goal TSH. Due on due Goal Follow up Plan f or abnormal BMI (Less than 18.5, greater than 25). Due on due Goal Mammogram. Due on due Goal Hepatitis C Screening due Goal Lipid panel. Due on 028 due Goal Diabetes screening. Due on due Goal Influenza vaccine. Due on due Goal Urinalysis. Due on due Goal Vitamin B12. Due on due Goal ECG. Due on due Goal Pneumococcal vaccine. Due on due Goal Drug Abuse Scree mar Test (DAST-10). Due on due Goal Obtain blood Pressure. Due o n due Goal Taking Aspirin o r other anti-coagulant. Due on due Goal Depression screening. Due on due Goal Tobacco Use Cess ation Counseling. Due on due Goal Obtain Height, Weight, and B DC. Due on due Goal CBC. Due on due Goal Generalized Anxi ety Disorder - 7 (MAKEDA-7). Due on due Goal Lifestyle education regardin g diet completed Goal Foot exam. Due on due Goal Drug Abuse Scree mar Test (DAST-10). Due on due Goal Hemoglobin A1C. Due on due Goal Colonoscopy. Due on 033 due Goal Urine microalbumin. Due on due Goal Dilated eye exam. Due on Jan due Goal Hepatitis C Screening due Goal CBC. Due on due Goal Dental exam. Due on 023 due Goal CMP. Due on due Goal Mammogram. Due on 2 due Goal GFR. Due on due Goal ASCVD 10 year risk. Due on due Goal DEXA scan. Due on 3 due Goal Vitamin D. Due on 4 due Goal Diabetes screening. Due on due Goal Depression screening. Due on due Goal Obtain blood Pressure. Due o n due Goal Urinalysis. Due on due Goal Unhealthy drug use screening due Goal Follow up Plan f or abnormal BMI (Less than 18.5, greater than 25). Due on due Goal Taking Aspirin o r other anti-coagulant. Due on due Goal Tobacco Use Screening. Due o n due Goal Obtain Height, Weight, and B DC. Due on due Goal Influenza vaccine. Due on due Goal Vitamin B12. Due on 024 due Goal Pneumococcal vaccine. Due on due Goal Generalized Anxi ety Disorder - 7 (MAKEDA-7). Due on due Goal TSH. Due on due Goal ECG. Due on due Goal Tobacco Use Cess ation Counseling. Due on due Goal Lipid panel. Due on 028 due Goal Diabetes screening. Due on due Goal DEXA scan. Due on 3 due Goal Hepatitis C Screening due Goal Generalized Anxi ety Disorder - 7 (MAKEDA-7). Due on due Goal Dental exam. Due on 023 due Goal CBC. Due on due Goal GFR. Due on due Goal Vitamin D. Due on 4 due Goal Tobacco Use Screening. Due o n due Goal Foot exam. Due on 3 due Goal Urine microalbumin. Due on due Goal Hemoglobin A1C. Due on due Goal Tobacco Use Cess ation Counseling. Due on due Goal ASCVD 10 year risk. Due on N due Goal Dilated eye exam. Due on Dec due Goal Taking Aspirin o r other anti-coagulant. Due on due Goal Vitamin B12. Due on 024 due Goal Follow up Plan f or abnormal BMI (Less than 18.5, greater than 25). Due on due Goal Obtain blood Pressure. Due o n due Goal Mammogram. Due on 2 due Goal ECG. Due on due Goal Pneumococcal vaccine. Due on due Goal Colonoscopy. Due on 033 due Goal Urinalysis. Due on 23 due Goal CMP. Due on due Goal Obtain Height, Weight, and B DC. Due on due Goal Unhealthy drug use screening due Goal Drug Abuse Scree mar Test (DAST-10). Due on due Goal TSH. Due on due Goal Influenza vaccine. Due on due Goal Depression screening. Due on due Goal Lipid panel. Due on 028 due Goal Generalized Anxi ety Disorder - 7 (MAKEDA-7). Due on due Goal Vitamin D. Due on 4 due Goal Dilated eye exam. Due on Dec due Goal Urine microalbumin. Due on due Goal Hemoglobin A1C. Due on due Goal CBC. Due on due Goal Diabetes screening. Due on S due Goal Tobacco Use Cess ation Counseling. Due on due Goal Foot exam. Due on 3 due Goal Mammogram. Due on 2 due Goal Dental exam. Due on 023 due Goal GFR. Due on due Goal Drug Abuse Scree mar Test (DAST-10). Due on due Goal ASCVD 10 year risk. Due on N due Goal Follow up Plan f or abnormal BMI (Less than 18.5, greater than 25). Due on due Goal Urinalysis. Due on 23 due Goal Lipid panel. Due on due Goal ECG. Due on due Goal Obtain Height, Weight, and B DC. Due on due Goal CMP. Due on due Goal Vitamin B12. Due on 024 due Goal Influenza vaccine. Due on No due Goal Colonoscopy. Due on 033 due Goal Obtain blood Pressure. Due o n due Goal Taking Aspirin o r other anti-coagulant. Due on due Goal TSH. Due on due Goal Unhealthy drug use screening due Goal DEXA scan. Due on 3 due Goal Tobacco Use Screening. Due o n due Goal Pneumococcal vaccine. Due on due Goal Depression screening. Due on due Goal Hepatitis C Screening due Goal Hepatitis C Screening due Goal Unhealthy drug use screening due Goal Diabetes screening. Due on S due Goal TSH. Due on due Goal Mammogram. Due on due Goal ASCVD 10 year risk. Due on N due Goal Drug Abuse Scree mar Test (DAST-10). Due on due Goal Hemoglobin A1C. Due on due Goal Follow up Plan f or abnormal BMI (Less than 18.5, greater than 25). Due on due Goal Generalized Anxi ety Disorder - 7 (MAKEDA-7). Due on due Goal CBC. Due on due Goal Dilated eye exam. Due on Dec due Goal Dental exam. Due on 023 due Goal GFR. Due on due Goal Urine microalbumin. Due on M due Goal DEXA scan. Due on 3 due Goal Foot exam. Due on 3 due Goal Vitamin B12. Due on 024 due Goal Tobacco Use Screening. Due o n due Goal Tobacco Use Cess ation Counseling. Due on due Goal ECG. Due on due Goal Vitamin D. Due on 4 due Goal Colonoscopy. Due on 033 due Goal Taking Aspirin o r other anti-coagulant. Due on due Goal Urinalysis. Due on 23 due Goal CMP. Due on due Goal Lipid panel. Due on 028 due Goal Obtain blood Pressure. Due o n due Goal Obtain Height, Weight, and B DC. Due on due Goal Depression screening. Due on due Goal Pneumococcal vaccine. Due on due Goal Influenza vaccine. Due on No due Goal ASCVD 10 year risk. Due on N due Goal Follow up Plan f or abnormal BMI (Less than 18.5, greater than 25). Due on due Goal CBC. Due on due Goal GFR. Due on due Goal Mammogram. Due on 2 due Goal Hemoglobin A1C. Due on due Goal Drug Abuse Scree mar Test (DAST-10). Due on due Goal Urine microalbumin. Due on due Goal Tobacco Use Screening. Due o n due Goal Foot exam. Due on due Goal Dilated eye exam. Due on Dec due Goal Diabetes screening. Due on due Goal Tobacco Use Cess ation Counseling. Due on due Goal Dental exam. Due on 023 due Goal Depression screening. Due on due Goal Obtain blood Pressure. Due o n due Goal Colonoscopy. Due on 033 due Goal Obtain Height, Weight, and B DC. Due on due Goal Vitamin B12. Due on 024 due Goal CMP. Due on due Goal DEXA scan. Due on due Goal ECG. Due on due Goal Lipid panel. Due on 028 due Goal Hepatitis C Screening due Goal Urinalysis. Due on 23 due Goal Unhealthy drug use screening due Goal Generalized Anxi ety Disorder - 7 (MAKEDA-7). Due on due Goal Taking Aspirin o r other anti-coagulant. Due on due Goal Vitamin D. Due on 4 due Goal Pneumococcal vaccine. Due on due Goal Influenza vaccine. Due on due Goal TSH. Due on due Goal Lifestyle education regardin g diet completed Goal Dental exam. Due on 023 due Goal Pap/HPV testing. Due on due Goal Unhealthy drug use screening due Goal TSH. Due on due Goal Mammogram. Due on due Goal ASCVD 10 year risk. Due on due Goal CBC. Due on due Goal Tobacco Use Screening. Due o n due Goal HPV. Due on due Goal Tobacco Use Cess ation Counseling. Due on due Goal Hemoglobin A1C. Due on due Goal Dilated eye exam. Due on Oct due Goal DEXA scan. Due on due Goal PAP. Due on due Goal Drug Abuse Scree mar Test (DAST-10). Due on due Goal Urine microalbumin. Due on due Goal Foot exam. Due on 3 due Goal GFR. Due on due Goal Diabetes screening. Due on due Goal Colonoscopy. Due on 033 due Goal CMP. Due on due Goal Vitamin B12. Due on 024 due Goal Obtain blood Pressure. Due o n due Goal Lipid panel. Due on 028 due Goal Urinalysis. Due on 23 due Goal HPV testing. Due on 023 due Goal Vitamin D. Due on 4 due Goal Pneumococcal vaccine. Due on due Goal Generalized Anxi ety Disorder - 7 (MAKEDA-7). Due on due Goal Hepatitis C Screening due Goal ECG. Due on due Goal Follow up Plan f or abnormal BMI (Less than 18.5, greater than 25). Due on due Goal Depression screening. Due on due Goal Influenza vaccine. Due on due Goal Obtain Height, Weight, and B DC. Due on due Goal Taking Aspirin o r other anti-coagulant. Due on due Goal Lifestyle education regardin g diet completed Goal Foot exam. Due on 3 due Goal Pap/HPV testing. Due on due Goal Generalized Anxi ety Disorder - 7 (MAKEDA-7). Due on due Goal Obtain Height, Weight, and B DC. Due on due Goal HPV testing. Due on 023 due Goal Hepatitis C Screening due Goal PAP. Due on due Goal Colonoscopy. Due on 033 due Goal Drug Abuse Scree mar Test (DAST-10). Due on due Goal Hemoglobin A1C. Due on due Goal GFR. Due on due Goal Urine microalbumin. Due on due Goal Dilated eye exam. Due on Oct due Goal ASCVD 10 year risk. Due on due Goal Dental exam. Due on 023 due Goal Lipid panel. Due on 028 due Goal Vitamin B12. Due on 024 due Goal Tobacco Use Cess ation Counseling. Due on due Goal CBC. Due on due Goal Obtain blood Pressure. Due o n due Goal Pneumococcal vaccine. Due on due Goal Vitamin D. Due on 4 due Goal Tobacco Use Screening. Due o n due Goal Follow up Plan f or abnormal BMI (Less than 18.5, greater than 25). Due on due Goal HPV. Due on due Goal DEXA scan. Due on 3 due Goal Urinalysis. Due on 23 due Goal TSH. Due on due Goal ECG. Due on due Goal Depression screening. Due on due Goal Unhealthy drug use screening due Goal CMP. Due on due Goal Mammogram. Due on 2 due Goal Influenza vaccine. Due on due Goal Diabetes screening. Due on due Goal Urine microalbumin. Due on due Goal GFR. Due on due Goal Dilated eye exam. Due on Oct due Goal PAP. Due on due Goal ASCVD 10 year risk. Due on S due Goal DEXA scan. Due on 3 due Goal Foot exam. Due on 3 due Goal Vitamin D. Due on 4 due Goal Dental exam. Due on 023 due Goal TSH. Due on due Goal Unhealthy drug use screening due Goal Obtain Height, Weight, and B DC. Due on due Goal Hemoglobin A1C. Due on due Goal Tobacco Use Cess ation Counseling. Due on due Goal CMP. Due on due Goal Tobacco Use Screening. Due o n due Goal HPV testing. Due on 023 due Goal HPV. Due on due Goal Generalized Anxi ety Disorder - 7 (MAKEDA-7). Due on due Goal Mammogram. Due on 2 due Goal Depression screening. Due on due Goal Lipid panel. Due on 028 due Goal Colonoscopy. Due on 033 due Goal ECG. Due on due Goal Obtain blood Pressure. Due o n due Goal Influenza vaccine. Due on due Goal Follow up Plan f or abnormal BMI (Less than 18.5, greater than 25). Due on due Goal Drug Abuse Scree mar Test (DAST-10). Due on due Goal Urinalysis. Due on 23 due Goal CBC. Due on due Goal Hepatitis C Screening due Goal Diabetes screening. Due on due Goal Vitamin B12. Due on 024 due Goal Pneumococcal vaccine. Due on due Goal Pap/HPV testing. Due on due Goal Hemoglobin A1C. Due on due Goal Dilated eye exam. Due on Jul due Goal ASCVD 10 year risk. Due on due Goal Mammogram. Due on due Goal Hepatitis C Screening due Goal CMP. Due on due Goal Dental exam. Due on 023 due Goal TSH. Due on due Goal Drug Abuse Scree mar Test (DAST-10). Due on due Goal Urine microalbumin. Due on due Goal DEXA scan. Due on 3 due Goal Foot exam. Due on 3 due Goal GFR. Due on due Goal Generalized Anxi ety Disorder - 7 (MAKEDA-7). Due on due Goal Colonoscopy. Due on 033 due Goal Vitamin B12. Due on due Goal Obtain blood Pressure. Due o n due Goal Urinalysis. Due on due Goal Depression screening. Due on due Goal Pap/HPV testing. Due on due Goal Vitamin D. Due on due Goal Tobacco Use Screening. Due o n due Goal Follow up Plan f or abnormal BMI (Less than 18.5, greater than 25). Due on due Goal ECG. Due on due Goal CBC. Due on due Goal Unhealthy drug use screening due Goal Pneumococcal vaccine. Due on due Goal Obtain Height, Weight, and B DC. Due on due Goal Lipid panel. Due on due Goal Influenza vaccine. Due on due Goal Tobacco Use Cess ation Counseling. Due on due Goal Diabetes screening. Due on due Goal Diabetes screening. Due on due Goal Obtain blood Pressure. Due o n due Goal Urinalysis. Due on due Goal ECG. Due on due Goal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 36.0-36.9, adult Lifestyle education regarding di et Related to Body mass index [BMI] 36.0-36.9, adult Patient instructed t o continue current medication regimen. Patient instructed to avoid tobacco smoke, vaping and other environmental smoke exposure. Exertional activity as tolerated to maintain lung function. Discussed signs and symptoms with COPD exacerbation, patient instructed to contact the clinic if he or she shows any signs or symptoms of COPD exacerbation. Related to COPD Low fat, low cholest davey diet. Avoid fatty, fried, and greasy foods. Physical activity as tolerated. Counseled on risks of associated comorbidities, such as heart disease and stroke. Encouraged avoidance of tobacco products. Related to Hyperlipidemia, unspecified Giving encouragement to exercise Related to Body mass index [BMI] 36.0-36.9, adult Lifestyle education regarding di et Related to Body mass index [BMI] 36.0-36.9, adult Do not take Iron wit h other medications. Take on an empty stomach if possible, and two hours prior to any other foods or medications. Do not drink milk or take tums within two hours of your iron. Increase water intake. Take any medications prescribed as directed. May use OTC medications prn for symptom relief of constipation. Iron can make you stool appear black, like blood. Follow a nutrient dense diet to include high fiber. Notify the provider of any signs of active bleeding (easy bruising, hematemesis, hematuria, melena, bright red blood per rectum), or new symptoms, such as: increased fatigue, dyspnea, chest pain, weakness, dizziness, or palpitations. Verbalized an understanding of all. Related to Iron deficiency anemia, unspecified Patient educated on the importance of improved glycemic control. Counseled on diet, exercise and other lifestyle modifications. Monitor blood glucose and keep a log as instructed by checking fasting glucose in the AM and non fasting before bedtime with any additional checks as instructed. Patient instructed to bring glucose log to all scheduled appointments. Instructed on the importance of taking all medications as prescribed. Patient aware of the importance of diabetic eye exams, dental check ups, foot exams and diabetic foot care. Patient verbalized understanding. Related to Type 2 diabetes mellitus without complications Counseled on importa nce of sleep hygiene. Maintain a consistent sleep schedule. Avoid caffeine for at least 6 hours prior to bed. Limit screen time (TV, phone, video games) before bed. Make sure bedroom is cool and dark, which improves sleep quality. If taking medications to help with insomnia, try to take at least 30 minutes before goal bed time. Do not smoke or drink alcohol just before bedtime. Got to bed and get up at the same time daily. Related to Insomnia Patient instructed o f the importance of taking medications as prescribed, following a low salt diet as well as getting physical activity as tolerated. Patient advised to keep BP log daily checking each morning and before bed. Patient to call the clinic if systolic blood pressure is greater than 150 and/or diastolic blood pressure is staying greater than 90. Related to Essential (primary) hypertension Patient instructed o n appropriate use of medications prescribed for back pain. Discussed conservative measures such as heat, ice, gentle strength stretching, and core muscle strengthening. Avoid heavy lifting, pulling, or tugging. Contact the clinic if any worsening or new symptoms related to back pain occur. Related to Back pain Lifestyle education regarding diet (procedure) Related to Essential (primary) hypertension Hypertension education Related t o Essential (primary) hypertension Counseled on importa nce of sleep hygiene. Maintain a consistent sleep schedule. Avoid caffeine for at least 6 hours prior to bed. Limit screen time (TV, phone, video games) before bed. Make sure bedroom is cool and dark, which improves sleep quality. If taking medications to help with insomnia, try to take at least 30 minutes before goal bed time. Do not smoke or drink alcohol just before bedtime. Got to bed and get up at the same time daily. Related to Insomnia Patient instructed o f the importance of taking medications as prescribed, following a low salt diet as well as getting physical activity as tolerated. Patient advised to keep BP log daily checking each morning and before bed. Patient to call the clinic if systolic blood pressure is greater than 150 and/or diastolic blood pressure is staying greater than 90. Related to Essential (primary) hypertension Continue to eat fortified Relate d to Iron deficiency anemia, unspecified Counseled patients o n medications for reflux. Discussed lifestyle modifications including but not limited to elevating the head of the bed, limiting fatty, greasy, spicy food intake. Avoid heavy meals and caffeine intake within 2 hours of bedtime. If applicable, reduce/discontinue tobacco use and/or alcohol use, as both can make reflux symptoms worse. Related to GERD disease w/ esophagitis, w/o bleeding 15 minutes of sun ex posure daily to naturally raise vitamin D levels Related to Vitamin D deficiency Dietary Instructions for a healthy weight: BMI should be between the range of 18.5-24.9 for an adult; and Caloric intake should be around 5333-0029 for a female, and 6713-5855 for an adult male. Fiber intake should be about 14 grams for 1000 calories per day. That is about 20-30 grams daily. Good sources of fiber are oatmeal, fortified grains, and green leafy vegetables, apples. You can also use Carbohydrate counting to maintain a healthy weight. One serving is equal to 15 grams (1 piece of bread, small fruit, or 1 cup of milk). Men should have 45-75, Women about 30-65 per meal, and snacks are recommend to be 13-30 grams each. Myplate.gov is a good source for meal planning and dietary education. You may also refer to the [employer] website for further low sodium, health heart diet information. Mediterainian diet would be a suitable diet for your current health conditions. Weight loss is recommend. Being active is an essential part of being healthy. Physical activity as tolerated. Try to engage in some form of moderate physical activity for 30 minutes most days of the week. May modify activity as needed to reduce discomfort. Try to achieve/maintain a healthy body weight to reduce strain on musculoskeletal system. Verbalizes understanding. Related to Body mass index [BMI] 39.0-39.9, adult Patient educated on the importance of maintaining glycemic control. Counseled on diet, exercise and other lifestyle factors that can impact glucose control. Monitor blood glucose and keep a log as instructed by checking fasting glucose in the AM and non fasting before bedtime with any additional checks as instructed. Patient instructed to bring glucose log to all scheduled appointments. Instructed on the importance of taking all medications as prescribed. Patient aware of the importance of diabetic eye exams, dental check ups, foot exams and diabetic foot care. Patient verbalized understanding. Related to Type 2 diabetes mellitus without complications Patient instructed o n appropriate use of medications prescribed for back pain. Discussed conservative measures such as heat, ice, gentle strength stretching, and core muscle strengthening. Avoid heavy lifting, pulling, or tugging. Contact the clinic if any worsening or new symptoms related to back pain occur. Related to Back pain Giving encouragement to exercise Related to Body mass index [BMI] 39.0-39.9, adult Lifestyle education regarding di et Related to Body mass index [BMI] 39.0-39.9, adult Assessments Type Assessment Date assessment Unspecified open wound, left low er leg, initial encounter
--- OUTSIDE RECORDS SUMMARY | 2024-08-19 12:52 | XMS_ITS | Data Portability ---
Author Organization [facility], [facility] Address [address] [place] [address] Care Team Providers Care Director Investor Relations Name Role Phone ASHLEY GARZA Primary Care Provider [phone] Assessment No assessment recorded. Plan of Treatment Reminders Order Date Submit Date Provider Last Modified By Organization Details Last Modified Time Details Appointments None record ed. Lab None record ed. Referral None record ed. Procedures None record ed. Surgeries None record ed. Imaging None record ed. Medication Orders None record ed. Patient TargetsNo targets recorded. Patient Instructions Encounter Date Encounter Id Patient Instructions Last Modified By Organization Details Last Modified Time 06/23/2021 [id number] diabetes foot health: care instructions Not available 06/23/2021 11:34:52 Reason for Referral None Reported. Problems Name Problem SNOMED Code Status Onset Date Resolution Date Notes Provider Name and Address Organization Details Recorded Time Polyneuropa thy due to type 2 diabetes mellitus 700580441 Active 2021 LYNSEY TIERNEY DPM [address] [place] [address], D[place] Rogers, [phone], [facility] 2 11:33:05 Bilateral atheroscler osis of arteries of lower limbs [id number] 9107 Active 2021 LYNSEY TIERNEY DPM [address] [place] [address], [place] Rogers, [phone], [facility] 2 10:24:25 Problem Notes None recorded. Procedures Surgical History Date Name Laterality Status Provider Name and Address Organization Details Recorded Time 2 Shave Callus - 2-4 completed LYNSEY TIERNEY, DPM [address] [place] [address], [phone], [facility] 09/22/2021 11:10:29 2 G0127 Dystrophic Nail Trimming completed LYNSEY TIERNEY, DPM [address] [place] [address], [phone], [facility] 09/22/2021 11:09:41 2 Nail Debridement (1-5) completed ERIC CINTRON, DPM [address] [place] [address], [phone], [facility] 07/21/2021 11:57:14 2 Paco Callus - 2-4 completed LYNSEY TIERNEY, DPM [address] [place] [address], [phone], [facility] 06/23/2021 11:34:14 2 G0127 Dystrophic Nail Trimming completed LYNSEY TIERNEY, DPM [address] [place] [address], [phone], [facility] 06/23/2021 11:34:30 Imaging Results None recorded. Procedure Notes None recorded. Medical Equipment None Reported. Allergies Allergen ID Allergen Name Allergen Category Reaction Reaction Severity Criticality Documentation Date Start Date Code Code System Note Provider Name and Address Organization Details Recorded Time 004870 amoxicill in medicatio n Not available Not available Not available 04/19/20212020 723 Rx[facility] 06:29:50 600475 vancomyci n medicatio n Not available Not available Not available 04/19/20212020 49854 RxNorm [facility] 06:30:11 684357 acetamino phen / hydrocodo ne medicatio n Not available Not available Not available 04/19/20212020 18969 2 RxNorm [facility]ish [facility]d [facility] 06:30:19 247687 Zosyn medicatio n Not available Not available Not available 04/19/20212020 71971 RxNorm Elda monreal [facility] 06:30:30 Medications Name Sig Start Date Stop Date Status Note LastModified by Organization Details LastModified Time losartan 50 mg tablet TAKE ONE TABLET BY MOUTH ONE TIME DAILY 06/23 completed Not Available Not Available Not Available gabapentin 600 mg tablet TAKE ONE TABLET BY MOUTH THREE TIMES A DAY active Not Available Not Available No t Available doxycycline hyclate 100 mg capsule TAKE ONE CAPSULE BY MOUTH TWICE A DAY 09/22 completed Not Available Not Available Not Available atorvastati n 20 mg tablet TAKE ONE TABLET BY MOUTH ONE TIME DAILY active Not Available Not Available No t Available azithromyci n 250 mg tablet TAKE TWO TABLETS BY MOUTH ON DAY 1, THEN TAKE ONE TABLET ONE TIME DAILY ON DAYS 2-5 06/23 completed Not Available Not Available Not Available tizanidine 4 mg tablet TAKE ONE TABLET BY MOUTH THREE TIMES A DAY NEEDED FOR MUSCLE SPASM active Not Available Not Available No t Available meclizine 12.5 mg tablet TAKE ONE TABLET BY MOUTH EVERY 6 HOURS NEEDED FOR DIZZINESS 06/23 completed Not Available Not Available Not Available triamcinolo ne acetonide 0.1 % topical cream APPLY A THIN LAYER TOPICALLY TO THE AFFECTED AREA(S) TWICE A DAY active Not Available Not Available No t Available ketorolac 0.5 % eye drops INSTILL ONE DROP INTO THE RIGHT EYE TWICE DAILY 06/23 completed Not Available Not Available Not Available prednisolon e acetate 1 % eye drops,suspe nsion INSTILL ONE DROP INTO THE LEFT EYE FOUR TIMES DAILY FOR 1 WEEK AFTER SURGERY THEN D/C 09/22 completed Not Available Not Available Not Available losartan 25 mg tablet TAKE ONE TABLET BY MOUTH ONE TIME DAILY 06/23 completed Not Available Not Available Not Available omeprazole 20 mg capsule,del ayed release TAKE ONE CAPSULE BY MOUTH TWICE A DAY BEFORE A MEAL. active Not Available Not Available No t Available dorzolamide 22.3 mg-timolol 6.8 mg/mL eye drops INSTILL ONE DROP INTO THE RIGHT EYE ONLY TWICE DAILY active Not Available Not Available No t Available zolpidem 5 mg tablet TAKE ONE TABLET BY MOUTH AT BEDTIME NEEDED FOR SLEEP 09/22 completed Not Available Not Available Not Available ergocalcife rol (vitamin D2) 1,250 mcg (50,000 unit) capsule TAKE ONE CAPSULE BY MOUTH EVERY WEEK active Not Available Not Available No t Available nystatin 100,000 unit/gram topical powder APPLY TO THE AFFECTED AREA(S) TOPICALLY TWICE DAILY active Not Available Not Available No t Available zolpidem 10 mg tablet TAKE ONE TABLET BY MOUTH AT BEDTIME active Not Available Not Available No t Available hydroxyzine HCl 10 mg tablet TAKE ONE TABLET BY MOUTH TWICE A DAY NEEDED FOR ANXIETY OR SLEEP active Not Available Not Available No t Available losartan 100 mg tablet TAKE ONE TABLET BY MOUTH ONE TIME DAILY active Not Available Not Available No t Available fluticasone propionate 50 mcg/actuati on nasal spray,suspe nsion USE ONE SPRAY IN EACH NOSTRIL TWICE DAILY active Not Available Not Available No t Available oxycodone 10 mg tablet TAKE ONE TABLET BY MOUTH EVERY 8 HOURS NEEDED FOR PAIN active Not Available Not Available No t Available OneTouch Verio test strips CHECK BLOOD SUGAR 3 TIMES DAILY BEFORE MEALS. active Not Available Not Available No t Available Eliquis 5 mg tablet TAKE ONE TABLET BY MOUTH TWICE A DAY active Not Available Not Available No t Available OneTouch Delica Plus Lancet 33 gauge CHECK BLOOD SUGAR THREE TIMES A DAY BEFORE MEALS active Not Available Not Available No t Available Vitals Date Recorded Body height Body mass index (BMI) Body weight Provider Name and Address Organization Details Last Updated DateTime 06/23/2021 162.56 cm 34.3 kg/m2 41199.47 g Kennedy Sorto [facility] 06/23/2021 11:07:17 Date Recorded Body height Body mass index (BMI) Body weight Provider Name and Address Organization Details Last Updated DateTime 07/21/2021 162.56 cm 34.3 kg/m2 92785.47 g ERIC CINTRON [address], [address] 07/21/2021 11:19:07 Date Recorded Body height Body mass index (BMI) Body weight Provider Name and Address Organization Details Last Updated DateTime 09/22/2021 162.56 cm 34.3 kg/m2 66173.47 g LYNSEY TIERNEY [address] [place], [address], [facility] 09/22/2021 10:27:28 Social History Question Answer Notes LastModified by Organizat ion Details LastModified Time Tobacco Smoking Status Current Every Day Smoker LYNSEY TIERNEY DPM [address] [place], [address], [facility] 09/22/2021 10:27:32 Do You Smoke? Yes Information not available 09/22/2021 Do You Drink? No Information not available 09/22/2021 Children? Yes Information no t available 09/22/2021 What Was The Date Of Your Most Recent Tobacco Screening? 09/22/2021 Information not available 09/22/2021 How Much Tobacco Do You Smoke? 2 PPD Information not available 09/22/2021 Has Tobacco Cessation Counseling Been Provided? Yes Information not available 09/22/2021 On What Date Was Tobacco Cessation Counseling Provided? 09/22/2021 Information not available 09/22/2021 Sex: Unknown Functional Status Question Answer Note LastModified by Organization D etails LastModified Time Do you or have you ever used any other forms of tobacco or nicotine? No Information not available 09/22/2021 Mental Status None recorded. Family History Relationship Description Onset Age of this Age Resolved Age Notes LastModified by Organization Details LastModified Time Daughter Family history of Arthritis [email or web address] Not available 07/21 10:23:36 Brother Family history of Arthritis [email or web address] Not available 07/21 10:23:36 Mother Family history of Arthritis [email or web address] Not available 07/21 10:23:36 Mother Family history of diabetes mellitus [email or web address] Not available 07/21 10:23:36 Mother Family history of malignant neoplasm [email or web address] Not available 2021 06:31:52 Sister Family history of Arthritis [email or web address] Not available 07/21 10:23:36 Sister Family history of malignant neoplasm [email or web address] Not available 2021 06:31:52 Father Family history of malignant neoplasm nnandish Not available 2021 06:31:52 Medical History Condition Response Diabetes Y Skin Problems Y Bleeding Disorder Y Back Pain Y Blood Clot Y Neuropathy Y Cancer Y Deep Vein Thrombosis Y Hypertension Y COPD Y Gynecological HistoryNo gynecological history recorded. Obstetrics History GPAL:G 0 P 0 0 0 0 Immunizations Vaccine Type Date Status Note Provider Nam e and Address Organization Details Recorded Time SARS-COV-2 (COVID-19) vaccine, UNSPECIFIED 09/16/2020 completed LYNSEY TIERNEY DPM [address] [place], [address], [facility] 09/22/2021 10:27:37 Past Encounters Encounter ID Performer Location Encounter Start Date Encounter Closed Date Diagnosis/Indication Diagnosis SNOMED-CT Code Diagnosis ICD10 Code Diagnosis Note [id number] LYNSEY TIERNEY DPM [facility] [address] [place] [address] 06/23/2021 10:18:22 06/23/2021 11:33:41 Polyneuropathy due to type 2 diabetes mellitus 071554750 E11.42 [id number] ERIC CINTRON DPM [facility] [address] [place] [address] 07/21/2021 10:23:31 07/21/2021 11:55:32 Bilateral atherosclerosis of arteries of lower limbs 3216788310 2891683 I70.870 [id number] LYNSEY TIERNEY DPM [facility] [address] [place] [address] 09/22/2021 09:56:58 09/22/2021 11:10:49 Bilateral atherosclerosis of arteries of lower limbs 5459220789 3422605 I70.203 Polyneurop athy due to type 2 diabetes mellitus 937702899 E11.42 Health Concerns Section Related Observation LastModified by Organization Detai ls LastModified Time None Recorded Concern Status LastModified by Organization Details LastModified Time None Recorded Advance Directives Directive None Recorded Payers Insurance Date Sequence Insurance Name Policy Number Policy Stevens Covered Member ID Stevens Member ID Guarantor Name 09/19/2021 1 [facility] (MEDICARE REPLACEMENT/A DVANTAGE - HMO) FLDSFRANCOIS Rivas [id number] Josephine P Heisel Notes Date Note Type Note Provider Name and Address Organization Details Recorded Time 06/23/2021 text/html Routine Foot CareReported bypatient.Location :bilateral Duration:continuou s since onset Timing:gradual; recurrent Context:cannot identify Alleviating Factors:nothing helps Aggravating Factors:precipitat ed by wearing shoes Previous Surgery:none Previous Treatment:none LYNSEY TIERNEY DPM [address] [place] [address], [address] [place] [address], [facility] 06/23/2021 11:35:29 07/21/2021 text/html Ingrown NailReported bypatient.Location :left 1 digit(s); medial border; lateral border Quality:aching; sharp; deep; frequent Severity:moderate Duration:weeks Timing:gradual Context:pressure; shoes Alleviating Factors:cutting nail; removal of pressure Aggravating Factors:shoes; pressure Associated Symptoms:aching Previous Surgery:none Prior Imaging:none Previous Injections:none Previous Treatments:DM MNFC A1C 5.5% ERIC CINTRON DPM [address] [place] [address], [facility] 07/21/2021 11:58:05 09/22/2021 text/html Routine Foot CareReported bypatient.Location :bilateral; toenails left ; toenails right Severity:no pain Duration:continuou s since onset Timing:gradual Context:cannot identify Alleviating Factors:taking off shoes Aggravating Factors:precipitat ed by wearing shoes Previous Surgery:none Previous Treatment:noneNote s:Last saw PCP: 07/2021 LYNSEY TIERNEY DPM [address] [place] [address], [address] [place] [address], [facility] 09/22/2021 11:10:50 OBGyn Episode No OBEpisode recorded.
--- OUTSIDE RECORDS SUMMARY | 2024-08-19 12:52 | XMS_ITS | Encounter Summary ---
Author Organization Healthcare Address [address] [place] [address] Care Team Providers Care Machine Stitcher Name Role Phone Pcp, No Primary Care Provider Debora Martínez APRN Primary Care Provider [phone] Encounter Details Date Type Department Care Team (Late st Contact Info) Description 04/18/2023 Orders Only External Location [address] [place] [address] Provider, External Social History Tobacco Use Types Packs/Day Years Used Date Smoking Tobacco: Never Assessed Comments Unknown Sex and Gender Information Value Date Recorded Sex Assigned at Not on file Legal Sex Female 1:37 PM EST Gender Identity Not on file Sexual Orientation Not on file documented as of this encounter Plan of Treatment Not on file documented as of this encounter Procedures Procedure Name Priority Date/Time Associated Diagnosis Comments PET OUTSIDE IMAGES 04/18/2023 10:44 AM EST documented in this encounter Results * PET OUTSIDE IMAGES (04/18/2023 10:44 AM EST) Anatomical Region Laterality Modality Nuclear Medicine 04/18/2023 10:4 4 AM EST External Provider IMG NM PROCEDURES Final Result documented in this encounter Visit Diagnoses Not on filedocumented in this encounter Care Teams Machine Stitcher Relationship Specialty Start Date End Date Pcp, Elaine [address] [place] [address] PCP - General Family Medicine 06/08/23 12/14/23 Debora Robles APRN [address] [place] [address] PCP - General 12/15/23 documented as of this encounter
--- OUTSIDE RECORDS SUMMARY | 2024-08-19 12:52 | XMS_ITS | Clinical Summary ---
Author Organization [facility] Address [address] [place] [address] Care Team Providers Care Bridal Sales Consultant Name Role Phone Debora Robles APRN Primary Care Provider [phone] Allergies Active Allergy Reactions Criticality Noted Date Comments Acetaminophen Cough,Itching,Other - please document in the comment field High 07/20/2020 Hydrocodone Other - please docum ent in the comment field Low 06/08/2023 Penicillins Other - please docum ent in the comment field,Rash Low 07/20/2020 Piperacillin Other - please docum ent in the comment field Low 06/08/2023 Tazobactam Rash Low 12/27/2022 Vancomycin Other - please docum ent in the comment field,Rash High 07/20/2020 Medications EQ Pain Reliever 500 MG tablet TAKE 1 TABLET BY MOUTH EVERY 4 TO 6 HOURS NEEDED 04/21/2023 Active Eliquis 5 MG tablet Take 1 tablet (5 mg) by mouth 2 (two) times a day. Active aspirin 81 MG EC tablet Take 1 tablet (81 mg) by mouth 1 (one) time each day. Active atorvastatin (Lipitor) 80 MG tablet Take 1 tablet (80 mg) by mouth 1 (one) time each day. Active Vitamin D-3 125 MCG (5000 UT) tablet Take 1 tablet (5,000 Units) by mouth 1 (one) time each day. 05/11/2023 Active ergocalciferol (Vitamin D-2) 1.25 MG (88838 UT) capsule Take 1 capsule (50,000 Units) by mouth 1 (one) time per week. Active DULoxetine (Cymbalta) [address] capsule Take 1 capsule (30 mg) by mouth 1 (one) time each day. 05/29/2023 Active gabapentin (Neurontin) 600 MG tablet Take 1 tablet (600 mg) by mouth 3 (three) times a day. 06/04/2023 Active Bevespi Aerosphere 9-4.8 MCG/ACT aerosol Inhale 2 puffs 2 (two) times a day. Active hydrOXYzine HCl (Atarax) 25 MG tablet Take 1 tablet (25 mg) by mouth 2 (two) times a day. Active losartan (Cozaar) 25 MG tablet Take 1 tablet (25 mg) by mouth 1 (one) time each day. Active metFORMIN (Glucophage) 500 MG tablet TAKE 1 TABLET BY MOUTH TWICE DAILY WITH MORNING MEAL AND WITH EVENING MEAL 10/24/2022 Active montelukast (Singulair) 10 MG tablet Take 1 tablet (10 mg) by mouth 1 (one) time each day in the evening. 12/27/2022 Active omeprazole (PriLOSEC) [address] capsule TAKE 1 CAPSULE BY MOUTH ONCE DAILY BEFORE A MEAL Active potassium chloride CR (K-Tab) 20 MEQ ER tablet Take 1 tablet (20 mEq) by mouth 1 (one) time each day. 01/18/2023 Active tiZANidine (Zanaflex) 4 MG tablet TAKE 1 TABLET BY MOUTH EVERY 6 TO 8 HOURS NEEDED NOT TO EXCEED 3 DOSES IN 24 HOURS Active FeroSul 325 (65 Fe) MG tablet Take 1 tablet (325 mg) by mouth. 07/28/2022 Active metoprolol succinate XL (Toprol-XL) 25 MG 24 hr tablet Take 1 tablet (25 mg) by mouth 1 (one) time each day. 10/24/2022 Active magnesium oxide (Mag-Ox) 400 mg tablet 1 tablet (400 mg) 1 (one) time each day. Active Melatonin 10 MG capsule Take by mouth. Active methocarbamol (Robaxin) 500 MG tablet Take 1 tablet (500 mg) by mouth 4 (four) times a day if needed for muscle spasms for up to 10 days. 40 tablet 12/15/2023 Active Active Problems Problem Noted Date Diagnosed Date Tobacco use disorder 06/08/2023 Second hand smoke exposure 06/08/2023 Family History Medical History Relation Name Comments Prostate cancer Father Arthritis Mother Cervical cancer Mother Diabetes Mother Hypercholesterolemia Mother Hypertension Mother Lung cancer Mother Migraines Other Cervical cancer Sister Heart Problem Sister Relation Name Status Comments Father Mother Other Sister Social History Tobacco Use Types Packs/Day Years Used Date Smoking Tobacco: Every Day Cigarettes 1.5 57.5 Started: 1966 Smokeless Tobacco: Never Tobacco Cessation:Ready to Q uit: Not Asked; Counseling Given: Not Answered Alcohol Use Standard Drinks/Week Comments Never 0 (1 standard drink = 0.6 oz pur e alcohol) Comments Unknown Sex and Gender Information Value Date Recorded Sex Assigned at Not on file Legal Sex Female 1:37 PM EST Gender Identity Not on file Sexual Orientation Not on file Last Filed Vital Signs Vital Sign Reading Time Taken Comments Blood Pressure 145/72 12/15/2023 9:47 PM EDT Pulse 85 12/15/2023 9:47 PM EDT Temperature 37.1 C (98.7 F) 12/15/2023 9:47 PM EDT Respiratory Rate 14 12/15/2023 9:47 PM EDT Oxygen Saturation 95% 12/15/2023 9:47 PM EDT Inhaled Oxygen Concentration - - Weight 84.3 kg (185 lb 13.6 oz) 06/08/2023 3:57 PM EDT Height 157.5 cm (5' 2 ) 06/08/2023 3:57 PM EDT Body Mass Index 33.99 06/08/2023 3:57 PM EDT Plan of Treatment Health Maintenance Due Date Last Done Comments [facility]-Bone Density Scan 1956 [facility]-Depression Screening 1956 [facility]-Medicare Annual Wellness (AWV) 1956 [facility]-/Child/Adol SDOH Screenings 1956 [facility]- SDOH Screenings 1974 [facility]-Adult SDOH Screenings 1974 [facility]-DTaP,Tdap,and Td Vaccine s (1 - Tdap) 11/18/1975 [facility]-Pneumococcal Vaccine: 50 + Years (1 of 2 - PCV) 11/18/1975 CT Colonography 2001 Colonoscopy 2001 FIT-DNA 2001 FIT 2001 FOBT 2001 Sigmoidoscopy 2001 [facility]-Colorectal Cancer Screening 2001 [facility]-Breast Cancer Screening 2006 [facility]-Zoster Vaccines (1 of 2) 2006 [id number] Vaccine (1 - 20 24-25 season) 2023 [facility]-Lung Cancer Screening 06/07/2024 06/08/2023 [facility]-Influenza Vaccine (Seaso n Ended) 2024 01/04/2023 [facility]-RSV Vaccine: 60+ Years o r (1 - 1-dose 75+ series) 11/18/2031 [facility]-Obesity Intervention Completed 06/08/2023 [facility]-Hepatitis C Screening Completed 12/15/2023 HPV Vaccines Aged Out No longer eligi ble based on patient's age to complete this topic [facility]-HIB Vaccines Aged Out No longer e ligible based on patient's age to complete this topic [facility]-Hepatitis A Vaccines Aged Out No longer eligible based on patient's age to complete this topic [facility]-IPV Vaccines Aged Out No longer e ligible based on patient's age to complete this topic [facility]-Rotavirus Vaccines Aged Out No lo nger eligible based on patient's age to complete this topic Procedures Procedure Name Priority Date/Time Associated Diagnosis Comments HEPATITIS C ANTIBODY - ED W/REFLEX TO HCV QUANT PCR STAT 12/15/2023 3:[address] CHEST WO IV CONTRAST Routine 06/08/2023 10:17 AM EDT Lung nodule from Last 3 Months or Most Recently Relevant to Health Maintenance Results * Hepatitis C Antibody - ED (12/15/2023 3:21 PM EDT) Hepatitis C Antibody Negative Negative 12/15/2023 4:24 PM EDT [facility] Blood Venous blood specimen / Unknown Venipuncture / Unknown 12/15/2023 3:21 PM EDT 12/15/2023 3:43 PM EDT us Josh Orourke MD LAB BLOOD ORDERABLES Final Res ult [facility] [address] [place] [address] * CT Chest wo IV Contrast (06/08/2023 10:17 AM EDT) Anatomical Region Laterality Modality Chest Computed Tomogra phy Impressions 06/08/2023 8:45 PM EDT Stable appearance of clustered nodules in the posterior basal right lower lobe. No new nodules. Recommend continued follow-up of these nodules in 6 months with a noncontrast chest CT. Interval decrease in size of a noncalcified right apical pulmonary nodule which is likely infectious/inflammatory in etiology. CRITICAL RESULT: No. COMMUNICATION: Per this written report. Drafted by Karthik Saleh MD on 06/08/2023 8:23 PM Final report signed by Karthik Saleh MD on 06/08/2023 8:45 PM Narrative 06/08/2023 8:45 PM EDT CLINICAL INDICATION: Lung nodule, > 8mm TECHNIQUE: Multiple CT helical images were obtained from thoracic inlet through upper abdomen without administration of IV contrast. Total DLP (Dose-Length Product): 112.72 mGy.cm. Please note: The reported value represents the total of one or more individual components during the CT acquisition on this date and at this time, and as such, the same value may appear in more than one CT report depending on the interpreting/reporting physicians. COMPARISON: Low dose chest CT on March 23, 2023 from an outside institution. FINDINGS: Mediastinum and Pleura: Mitral annulus calcifications noted. Coronary artery atherosclerosis. Ascending thoracic aorta measuring up to 40 mm. No pericardial or pleural effusion. Enlarged main pulmonary artery measuring up to 37 mm in greatest dimension. No pericardial or pleural effusion. Small hernia. Lungs: Central airways are patent with diffuse bronchial wall thickening. No bronchiectasis. No mass or consolidation. Clustered noncalcified pulmonary nodules in the posterior basal right lower lobe are stable (series 3, image 71). Interval decrease in size of a noncalcified right apical nodule measuring 7 mm, previously 10 mm (series 3, image 24). Upper Abdomen: Cholelithiasis. Prior gastric surgery. Musculoskeletal: Left chest wall subcutaneous loop recorder noted in place. S- shaped scoliosis of the thoracic spine. Degenerative changes of the thoracic spine. L1 vertebral body wedge deformity is again noted. No axillary adenopathy. Multiple healed old rib fractures. Procedure Note Karthik Saleh MD - 06/08/2023 CLINICAL INDICATION: Lung nodule, > 8mm TECHNIQUE: Multiple CT helical images were obtained from thoracic inlet through upperabdomen without administration of IV contrast. Total DLP (Dose-Length Product): 112.72 mGy.cm. Please note: The reportedvalue represents the total of one or more individual components during theCT acquisition on this date and at this time, and as such, the same valuemay appear in more than one CT report depending on theinterpreting/reporting physicians. COMPARISON: Low dose chest CT on March 23, 2023 from an outside institution. FINDINGS: Mediastinum and Pleura: Mitral annulus calcifications noted. Coronaryartery atherosclerosis. Ascending thoracic aorta measuring up to 40 mm. Nopericardial or pleural effusion. Enlarged main pulmonary artery measuringup to 37 mm in greatest dimension. No pericardial or pleural effusion.Small hernia. Lungs: Central airways are patent with diffuse bronchial wall thickening.No bronchiectasis. No mass or consolidation. Clustered noncalcifiedpulmonary nodules in the posterior basal right lower lobe are stable(series 3, image 71). Interval decrease in size of a noncalcified rightapical nodule measuring 7 mm, previously 10 mm (series 3, image 24). Upper Abdomen: Cholelithiasis. Prior gastric surgery. Musculoskeletal: Left chest wall subcutaneous loop recorder noted inplace. S- shaped scoliosis of the thoracic spine. Degenerative changes ofthe thoracic spine. L1 vertebral body wedge deformity is again noted. Noaxillary adenopathy. Multiple healed old rib fractures. IMPRESSION: Stable appearance of clustered nodules in the posterior basal right lowerlobe. No new nodules. Recommend continued follow-up of these nodules in 6months with a noncontrast chest CT. Interval decrease in size of a noncalcified right apical pulmonary nodulewhich is likely infectious/inflammatory in etiology. CRITICAL RESULT: No. COMMUNICATION: Per this written report. Drafted by Karthik Saleh MD on 06/08/2023 8:23 PM Final report signed by Karthik Saleh MD on 06/08/2023 8:45 PM Priyank Meraz MD IMG CT PROCEDURES Final Resul t from Last 3 Months or Most Recently Relevant to Health Maintenance Insurance [facility] MEDICARE MEDICAID-[place] Care Teams Bridal Sales Consultant Relationship Specialty Start Date End Date Debora Robles APRN [address] [place] [address] PCP - General 12/15/23
--- OUTSIDE RECORDS SUMMARY | 2024-08-19 12:52 | XMS_ITS | Referral Summary ---
Author Organization [facility] Address [address] [place] [address] Care Team Providers Care Pharmacy Tech Name Role Phone Unavailable Primary Care Provider Unavailabl e Social History Tobacco Use Types Packs/Day Years Used Date Smoking Tobacco: Never Assessed Interpersonal Safety Answer Date Record ed Family or friends hurt you Not on file 04/18 Family or friends insult you Not on file Family or friends threaten you Not on file 0 04/18/2023 Family or friends scream or curse at you Not on file 04/18/2023 Housing Stability Answer Date Recorded Living situation today Not on file Living situation problems Not on file 2023 Food Insecurity Answer Date Recorded Food run out past 12 months Not on file 03/31 Food did not last past 12 months Not on file 04/18/2023 Employment Answer Date Recorded Help finding and keeping a job Not on file 0 04/18/2023 Family and Community Support Answer Dominic e Recorded Help with Day to Day Activities Not on file 04/18/2023 Feeling Lonely or Isolated Not on file 04/18 Educational Attainment Answer Date Yogi rded Speak language other than [place] at home Not on file 04/18/2023 Want help with school or training Not on file 04/18/2023 Depression Answer Date Recorded PHQ-2 Risk Not on file 04/18/2023 Disabilities Answer Date Recorded Difficulty concentrating Not on file 024 Difficulty doing errands alone Not on file 0 04/18/2023 Substance Use Answer Date Recorded Used prescription meds for non-medical reasons N ot on file 04/18/2023 Used illegal drugs past 12 months Not on file 04/18/2023 Comments Unknown Sex and Gender Information Value Date Recorded Sex Assigned at Not on file 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
--- OUTSIDE RECORDS SUMMARY | 2024-08-19 12:52 | XMS_ITS | Encounter Summary ---
Author Organization Healthcare Address [address] [place] [address] Care Team Providers Care Geological Engineering Teacher Name Role Phone Pcp, No Primary Care Provider Debora Martínez APRN Primary Care Provider [phone] Encounter Details Date Type Department Care Team (Late st Contact Info) Description 03/23/2023 Orders Only External Location [address] [place] [address] Debora Robles APRN [address] [place] [address] Social History Tobacco Use Types Packs/Day Years [...] Procedure Name Priority Date/Time Associated Diagnosis Comments CT OUTSIDE IMAGES 03/23/2023 8:41 AM EST documented in this encounter Results * CT OUTSIDE IMAGES (03/23/2023 8:41 AM EST) Anatomical Region Laterality Modality Computed Tomogra phy 03/23/2023 8:41 AM EST Debora Robles APRN IMG CT PROCEDURES Final R esult documented in this encounter Visit Diagnoses Not on filedocumented in this encounter Care Teams Geological Engineering Teacher Relationship Specialty Start Date End Date Pcp, Elaine [address] [place] [address] PCP - General Family Medicine 06/08/23 12/14/23 Debora Robles APRN [address] [place] [address] PCP - General 12/15/23 documented as of this encounter
--- OUTSIDE RECORDS SUMMARY | 2024-08-19 12:52 | XMS_ITS | Clinical Summary ---
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 Gender Identity Not on file Sexual Orientation Not on file Plan of Treatment Health Maintenance Due Date Last Done Comments CT Colonography 1956 Colonoscopy 1956 Colorectal Cancer Screening 1956 DXA SCAN 1956 FOBT/FIT 1956 Fit-DNA (Cologuard) 1956 Sigmoidoscopy 1956 Depression Screening (12+) 1968 Tobacco Cessation Counseling and Screening (12+) 11/17 Hepatitis C Screening 1974 DTAP/TDAP/TD VACCINES (1 - Tdap) 11/18/1975 Breast Cancer Screening 1996 Pneumococcal 50+ years (1 of 1 - PCV) 2006 Shingles Vaccine (Zoster) (1 of 2) 2006 COVID-19 VACCINE (2 - season) 2023 Falls Risk Screening 02/28/2024 Influenza Vaccine (Season Ended) 2024 Respiratory Syncytial Virus (RSV) Adult or (1 - 1-dose 75+ series) 11/18/2031
--- OUTSIDE RECORDS SUMMARY | 2024-08-19 12:53 | XMS_ITS | Data Portability ---
Author Organization [place] [facility] [place] [facility] [place] Address [address] [place] [id number] Care Team Providers Care Messenger Floorperson Name Role Phone ANUEL BYRNE Telephonic Case Manager Unavailable RITA XAVIER Primary Care Provider [phone] Assessment Encounter Date Assessment Date Assessment LastModified by Organization Details LastModified Time 08/09/2022 08/09/2022 This is a patien t here today with her daughter referred by [facility], HUBERT Yousif For management of chronic pain and medication. She is here with complaints of back pain and bilateral lower extremity pain. She reports pain for many years. 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 She complains of increased low back pain and leg pain with standing, walking with pain that is aching burning throbbing shooting. She has been on oxycodone 10 mg 4 times a day for approximately 8 years. He was most recently prescribed by Dr. Godoy and Jeniffer but he has discontinued prescribing it. she has had no prior interventions. She has no recent imaging. Based on history and physical exam, I think her pain is multifactorial to include lumbar stenosis, pain secondary to the edema in her legs. We discussed further interventional treatment to address her pain pattern beginning with a lumbar epidural. We will order an xray to be done prior to the procedure. Regarding the medication, we will need to discuss this with Dr. Wilson. UDS was obtained today and was negative for opiates. She was last prescribed oxycodone 5mg #240 on 07/21/22 and states she was taking 2 tabs po q6h. UDS will be sent off for confirmation. Patient has enough medication to last 10 days and we will not be prescribing anything today. I had a detailed discussion with the patient regarding treatment modalities and the respective risks/benefits. I educated the patient on the dangers/risks of long-term oral opioids, particularly with increasing age, these risks include respiratory depression, not excluding . I informed the patient that the goal of [facility] will be to incorporate a multi-modal approach to pain management, which may consist of conservative, pharmacologic, and interventional approaches, ultimately decreasing pain and increasing function with focus on both safety and efficacy. - Schedule LEI L5-S1 - Order lumbar xray - Return post injection I counseled the patient extensively and informed of the risks of the procedure, including the risk of paralysis, nerve damage, respiratory arrest, arrhythmias, stroke, weakness, and infection, which although very low, could result in or disability. The patient acknowledged to me that they understand and accept these risks. RN EDUCATION Extensive coordination of care provided by RN to educate patient on upcoming procedure and to coordinate obtaining extensive incoming medical records. I have discussed in great detail our potential treatment options which would include a rehabilitative approach to care. This program would include medication management, Physical Therapy, consideration for interventional procedures as appropriate, and lifestyle modification (diet, weight loss, exercise, smoking/tobacco cessation, holistic approach including meditation and yoga). The patient understands and agrees prior to proceeding with this plan. _ __ __ __ __ __ __ __ __ __ __ __ __ __ __ __ __ __ __ __ __ __ __ __ __ __ __ __ _ RECORDS REVIEW: As per clinic policy, we will have the patient sign a release to obtain previous imaging and clinical notes. _ __ __ __ __ __ __ __ __ __ __ __ __ __ __ __ __ __ __ __ __ __ __ __ __ __ __ __ _ PSYCH: Pain affecting Neuro-psych behavior was discussed. Discussed about pain psychological counseling as a part of the multimodal approach to pain treatment. _ __ __ __ __ __ __ __ __ __ __ __ __ __ __ __ __ __ __ __ __ __ __ __ __ __ __ __ _ REHABILITATION: Discussed with the patient the importance of diet, daily physical activity and PT. Discussed with the patient the need to be scheduled for physical therapy since physical therapy will prolong the benefits of the procedure and interventions. _ __ __ __ __ __ __ __ __ __ __ __ __ __ __ __ __ __ __ __ __ __ __ __ __ __ __ __ _ SMITA: I have reviewed patient's SMITA report prior to prescribing Schedule II, III, and IV medications that require review by law. [email or web address] Not available 08/11/2022 13:38:44 08/12/2022 08/12/2022 66-year-old vee le admitted in April 2022 with severe iron deficiency anemia. No source of blood loss has been identified on EGD, colonoscopy, or pill endoscopy. She is at risk for malabsorption due to prior sleeve gastrectomy. -continue oral iron supplementation as prescribed by the patient's PCP -I have recommended that she re-schedule follow-up with Hematology for continued monitoring for possible need of infusional iron therapy as she missed her last appointment. -recommend repeat colonoscopy April 2027 for surveillance purposes. [email or web address] Not available 08/12/2022 10:36:29 11/22/2022 11/22/2022 This is a patien t here today with her daughter referred by [facility], HUBERT Yousif For management of chronic pain and medication. She is here with complaints of back pain and bilateral lower extremity pain. She reports pain for many years. 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 She complains of increased low back pain and leg pain with standing, walking with pain that is aching burning throbbing shooting. She has been on oxycodone 10 mg 4 times a day for approximately 8 years. He was most recently prescribed by Dr. Godoy and Jeniffer but he has discontinued prescribing it. she has had no prior interventions. She has no recent imaging. Patient returns today with her daughter after a 3 months absence. At last visit, she was scheduled for LEI, however, cancelled due to lack of transportation. She continues to complain of low back pain with LLE pain worse at night. She has lymphedema in the left leg and is seen at a lymphedema clinic at [facility]. Patient is currently taking gabapentin 600 mg tid, tizanidine 4mg tid for her pain. 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 Patient has been on Eliquis care home with history of DVT. She is diabetic with A1C 5.7. Based on history and physical exam, I think her pain is multifactorial to include lumbar stenosis, sacroilitis and lymphedema pain. Lumbar x-rays from 08/09/22 shows chronic compression of T12 with 80% loss of vertebral body height. Chronic deformity of L5 and exaggerated lordosis with multilevel degenerative changes. Disc spaces fairly well preserved. Given the patient history of recent eye strokes, I do not want to proceed with any interventions for the time being. Once she is one year post stroke and able to get clearance to come off of the Eliquis, we may consider proceeding with procedures. The patient's pain is currently moderately controlled with gabapentin and tizanidine. Since the patient lives greater than an hour from our clinic, it would be difficult for her to travel to [place] for random pill counts, medications refills etc. I would recommend she continue medications with HUBERT Yousif, if willing. I had a detailed discussion with the patient regarding treatment modalities and the respective risks/benefits. I educated the patient on the dangers/risks of long-term oral opioids, particularly with increasing age, these risks include respiratory depression, not excluding . I informed the patient that the goal of [facility] will be to incorporate a multi-modal approach to pain management, which may consist of conservative, pharmacologic, and interventional approaches, ultimately decreasing pain and increasing function with focus on both safety and efficacy. Patient will return to see us once she is one year post stroke and interested in pursuing interventional pain treatment. I have discussed in great detail our potential treatment options which would include a rehabilitative approach to care. This program would include medication management, Physical Therapy, consideration for interventional procedures as appropriate, and lifestyle modification (diet, weight loss, exercise, smoking/tobacco cessation, holistic approach including meditation and yoga). The patient understands and agrees prior to proceeding with this plan. _ __ __ __ __ __ __ __ __ __ __ __ __ __ __ __ __ __ __ __ __ __ __ __ __ __ __ __ _ RECORDS REVIEW: As per clinic policy, we will have the patient sign a release to obtain previous imaging and clinical notes. _ __ __ __ __ __ __ __ __ __ __ __ __ __ __ __ __ __ __ __ __ __ __ __ __ __ __ __ _ PSYCH: Pain affecting Neuro-psych behavior was discussed. Discussed about pain psychological counseling as a part of the multimodal approach to pain treatment. _ __ __ __ __ __ __ __ __ __ __ __ __ __ __ __ __ __ __ __ __ __ __ __ __ __ __ __ _ REHABILITATION: Discussed with the patient the importance of diet, daily physical activity and PT. Discussed with the patient the need to be scheduled for physical therapy since physical therapy will prolong the benefits of the procedure and interventions. _ __ __ __ __ __ __ __ __ __ __ __ __ __ __ __ __ __ __ __ __ __ __ __ __ __ __ __ _ SMITA: I have reviewed patient's SMITA report prior to prescribing Schedule II, III, and IV medications that require review by law. Not available 11/22/2022 10:35:10 Plan of Treatment Reminders Order Date Submit Date Provider Last Modified By Organization Details Last Modified Time Details Appointments None recorded. Lab drug screen, urine 2022 [email or web address] [facility], [address] [facility] [facility], [address], [place], [address], 3 13:38:45 Referral None recorded. Procedures injection, single, diagnostic or therapeutic substance, lumbar, sacral (PROC) - 32466, L5-S1 2022 023 [email or web address] Not available 3 09:09:04 Surgeries None recorded. Imaging XR, lumbar spine, 2 view 2022 023 [email or web address] 1 [facility] (Centralized Scheduling), [address] [facility], [place], [address], 3 11:33:17 LDCT, chest, for lung cancer screening - 1- Did patient participate in a shared decision-ma azar session with the provider? YES2- Is patient age between 50-77 years old? YES3- Did patient smoke at least 20 pack year? YES4- Is patient current smoker or quit smoking within the last 15 years? YES5- Is the patient asymptomati c (no signs or symptoms of lung cancer)? YES 2022 024 [facility] (Centralized Scheduling), [address] [facility], [place], [address], 4 03:01:01 Medication Orders ipratropium 0.5 mg-albutero l 3 mg (2.5 mg base)/3 mL nebulizatio n soln 2022 023 [facility], [address], [address], 13:50:55 Breztri Aerosphere 160 mcg-9mcg-4. 8mcg/actuat ion HFA aerosol inhaler 2022 023 [facility], [address], [address], 13:50:54 Patient TargetsNo targets recorded. Patient Instructions Encounter Date Encounter Id Patient Instructions Last Modified By Organization Details Last Modified Time 06/15/2022 [id number] smoking cessatio n counseling, greater than 3 minutes up to 10 minutes* [email or web address] Not available 06/15/2022 13:50:48 Reason for Referral None Reported. Results Created Date Observation Date Name Description Value Unit Range Abnormal Flag Note LastModifiedBy Organization Detail LastModifiedTime 05/31/1905/30/2022 RETIC COUNT AUTO reticulocyte % 1.0 % 0.5-1. 5 Not Available [facility] ([facility]) [address] [place], [address], 05/30/2022 14:54:45 05/31/19 23 05/30/2022 IRON STUDY (IRON /TIBC /%SAT ) iron 18 mcg/m L 40-180 low Not Available [facility] ([facility]) [address] [place], [address], 05/30/2022 15:32:37 05/31/19 23 05/30/2022 IRON STUDY (IRON /TIBC /%SAT ) TIBC 397 mcg/d L 250-45 0 Not Available [facility] ([facility]) [address] [place], [address], 05/30/2022 15:32:37 05/31/19 23 05/30/2022 IRON STUDY (IRON /TIBC /%SAT ) %sat 5 15-55 low Not Available [facility] ([facility]) [address] [place], [address], 05/30/2022 15:32:37 05/31/19 23 05/30/2022 COMP METAB OLIC PANEL sodium 142 mmol/ L 136-14 5 Not Available [facility] ([facility]) [address] , [place], [address], 05/30/2022 15:58:29 05/31/19 23 05/30/2022 COMP METAB OLIC PANEL potassium 3.6 mmol/ L 3.6-5. 0 Not Available [facility] ([facility]) [address] , [place], [address], 05/30/2022 15:58:29 05/31/19 23 05/30/2022 COMP METAB OLIC PANEL chloride 105 mmol/ L 98-107 Not Available [facility] ([facility]) [address] , [place], [address], 05/30/2022 15:58:29 05/31/19 23 05/30/2022 COMP METAB OLIC PANEL carbon dioxide 29.8 mmol/ L 21.0-3 2.0 Not Available [facility] ([facility]) [address] , [place], [address], 05/30/2022 15:58:29 05/31/19 23 05/30/2022 COMP METAB OLIC PANEL anion gap 10.8 Not Available [facility] ([facility]) [address] , [place], [address], 05/30/2022 15:58:29 05/31/19 23 05/30/2022 COMP METAB OLIC PANEL glucose 152 mg/dL 70-120 high Not Available [facility] ([facility]) [address] [place], [address], 05/30/2022 15:58:29 05/31/19 23 05/30/2022 COMP METAB OLIC PANEL BUN 18 mg/dL 7-18 Not Available [facility] ([facility]) [address] [place], [address], 05/30/2022 15:58:29 05/31/19 23 05/30/2022 COMP METAB OLIC PANEL creatinine 0.9 mg/dL 0.6-1. 3 Not Available [facility] ([facility]) [address], [place], [address], 05/30/2022 15:58:29 05/31/19 23 05/30/2022 COMP METAB OLIC PANEL glomerular filtration rate >60 mlper min 60- Not Available [facility] ([facility]) [address], [place], [address], 05/30/2022 15:58:29 05/31/19 23 05/30/2022 COMP METAB OLIC PANEL total protein 7.5 g/dL 6.4-8. 2 Not Available [facility] ([facility]) [address] , [place], [address], 05/30/2022 15:58:29 05/31/19 23 05/30/2022 COMP METAB OLIC PANEL albumin 2.8 g/dL 3.4-5. 0 low Not Available [facility] ([facility]) [address] , [place], [address], 05/30/2022 15:58:29 05/31/19 23 05/30/2022 COMP METAB OLIC PANEL globulin 4.7 Not Available [facility] ([facility]) [address] , [place], [address], 05/30/2022 15:58:29 05/31/19 23 05/30/2022 COMP METAB OLIC PANEL alb/glob ratio 0.6 0.7-2 low Not Available [facility] ([facility]) [address] , [place], [address], 05/30/2022 15:58:29 05/31/19 23 05/30/2022 COMP METAB OLIC PANEL calcium 8.7 mg/dL 8.5-10 .5 Not Available [facility] ([facility]) [address] , [place], [address], 05/30/2022 15:58:29 05/31/19 23 05/30/2022 COMP METAB OLIC PANEL bilirubin total 0.30 mg/dL 0.10-1 .00 Not Available [facility] ([facility]) [address], [place], [address], 05/30/2022 15:58:29 05/31/19 23 05/30/2022 COMP METAB OLIC PANEL AST (SGOT) 18 U/L 0-37 Not Available [facility] ([facility]) [address], [place], [address], 05/30/2022 15:58:29 05/31/19 23 05/30/2022 COMP METAB OLIC PANEL ALT (SGPT) 17 U/L 0-65 Not Available [facility] ([facility]) [address], [place], [address], 05/30/2022 15:58:29 05/31/19 23 05/30/2022 COMP METAB OLIC PANEL alk phosphatase 132 U/L 46-116 high Not Available [facility] ([facility]) [address], [place], [address], 05/30/2022 15:58:29 05/31/19 23 05/30/2022 ED TIN ferritin, serum 32 NG/mL 3-244 Not Available [facility] ([facility]) [address] , [place], [address], 05/30/2022 15:58:31 05/31/19 23 05/30/2022 VITAM IN B12 vitamin B12 669 pg/mL 193-98 6 *Note : Refer ence Aby austin New Test Metho d in use. Not Available [facility] ([facility]) [address], [place], [address], 05/30/2022 16:15:28 05/31/19 23 05/30/2022 VITAM IN B12 folate (folic acid), serum 24.8 NG/mL 8.6-58 .9 *Note : Refer jennifer austin New Test Metho d in use. Not Available [facility] ([facility]) [address] , [place], [address], 05/30/2022 16:15:28 05/31/19 23 05/30/2022 CBC AUTO W DIFF WBC 6.6 K/uL 4.0-10 .5 Not Available [facility] ([facility]) [address] , [place], [address], 05/30/2022 18:43:13 05/31/19 23 05/30/2022 CBC AUTO W DIFF RBC 4.2 M/mm3 4.2-6. 4 Not Available [facility] ([facility]) [address] , [place], [address], 05/30/2022 18:43:13 05/31/19 23 05/30/2022 CBC AUTO W DIFF HGB 9.1 gm/dL 12.5-1 6.0 low Not Available [facility] ([facility]) [address] , [place], [address], 05/30/2022 18:43:13 05/31/19 23 05/30/2022 CBC AUTO W DIFF HCT 32.9 % 37.0-4 7.0 low Not Available [facility] ([facility]) [address] , [place], [address], 05/30/2022 18:43:13 05/31/19 23 05/30/2022 CBC AUTO W DIFF MCV 78.9 fL 78-100 Not Available [facility] ([facility]) [address] , [place], [address], 05/30/2022 18:43:13 05/31/19 23 05/30/2022 CBC AUTO W DIFF MCH 21.8 pg 27-31 low Not Available [facility] ([facility]) [address] , [place], [address], 05/30/2022 18:43:13 05/31/19 23 05/30/2022 CBC AUTO W DIFF MCHC 27.7 g/dL 32-36 low Not Available [facility] ([facility]) [address] , [place], [address], 05/30/2022 18:43:13 05/31/19 23 05/30/2022 CBC AUTO W DIFF RDW 25.1 % 11.5-1 4.0 high Not Available [facility] ([facility]) [address], [place], [address], 05/30/2022 18:43:13 05/31/19 23 05/30/2022 CBC AUTO W DIFF platelet count 287 K/uL 150-45 0 Not Available [facility] ([facility]) [address] , [place], [address], 05/30/2022 18:43:13 05/31/19 23 05/30/2022 CBC AUTO W DIFF neutrophil% 68.3 % 43-65 high Not Available [facility] ([facility]) [address] , [place], [address], 05/30/2022 18:43:13 05/31/19 23 05/30/2022 CBC AUTO W DIFF lymphocyte% 16.6 % 20.5-4 5.5 low Not Available [facility] ([facility]) [address] [place], [address], 05/30/2022 18:43:13 05/31/19 23 05/30/2022 CBC AUTO W DIFF monocyte% 5.5 % 5.5-11 .7 Not Available [facility] ([facility]) [address] [place], [address], 05/30/2022 18:43:13 05/31/19 23 05/30/2022 CBC AUTO W DIFF eosinophil% 9.0 % 0.9-2. 9 high Not Available [facility] ([facility]) [address], [place], [address], 05/30/2022 18:43:13 05/31/19 23 05/30/2022 CBC AUTO W DIFF basophil% 0.6 % 0.2-1. 0 Not Available [facility] ([facility]) [address] [facility], [place], [address], 05/30/2022 18:43:13 05/31/19 23 05/30/2022 CBC AUTO W DIFF neutrophil# 4.5 K/uL 2.2-4. 8 Not Available [facility] ([facility]) [address] [facility], [place], [address], 05/30/2022 18:43:13 05/31/19 23 05/30/2022 CBC AUTO W DIFF lymphocyte# 1.1 cell/ mcL 1.3-2. 9 low Not Available [facility] ([facility]) [address] [facility], [place], [address], 05/30/2022 18:43:13 05/31/19 23 05/30/2022 CBC AUTO W DIFF monocyte# 0.4 cell/ mcL 0.3-0. 8 Not Available [facility] ([facility]) [address] [place], [address], 05/30/2022 18:43:13 05/31/19 23 05/30/2022 CBC AUTO W DIFF eosinophil# 0.6 cell/ mcL 0-0.2 high Not Available [facility] ([facility]) [address] [facility], [place], [address], 05/30/2022 18:43:13 05/31/19 23 05/30/2022 CBC AUTO W DIFF basophil# 0.0 cell/ mcL 0.0-1. 0 Not Available [facility] ([facility]) [address], [place], [address], 05/30/2022 18:43:13 05/31/19 23 05/30/2022 CBC AUTO W DIFF manual differential NO Not Available [facility] ([facility]) [address], [place], [address], 05/30/2022 18:43:13 05/31/19 23 05/30/2022 CBC AUTO W DIFF RBC morphology ABNORM AL normal Not Available [facility] ([facility]) [address], [place], [address], 05/30/2022 18:43:13 05/31/19 23 05/30/2022 CBC AUTO W DIFF platelet estimate ADEQUA TE adequa te Not Available [facility] ([facility]) [address], [place], [address], 05/30/2022 18:43:13 05/31/19 23 05/30/2022 CBC AUTO W DIFF platelet morphology NORMAL normal Not Available [facility] ([facility]) [address], [place], [address], 05/30/2022 18:43:13 05/31/19 23 05/30/2022 CBC AUTO W DIFF anisocytosis 3+ none seen Not Available [facility] ([facility]) [address], [place], [address], 05/30/2022 18:43:13 05/31/19 23 05/30/2022 CBC AUTO W DIFF hypochromia 1+ none seen Not Available [facility] ([facility]) [address], [place], [address], 05/30/2022 18:43:13 05/31/19 23 05/31/2022 ERYTH ROPOI ETIN QUANT erythropoiet in, serum 61.2 mIU/m L 2.6-18 .5 high Beckm an Coult er UniCe l DxI 800 Immun oassa y Syste m . Value s obtai brenda with diffe rent assay metho ds or kits canno t be used inter cullen eably . Resul ts canno t be inter prete d as absol isaias evide nce of the prese nce or absen [facility]. Perfo rmed at: - [facility] [address] [place] [address] Lab Direc tor: Ryan nt Bravo goldstein PhD, Phone : [phone] Not Available [facility] ([facility]) [address] [facility], [place], [address], 05/31/2022 17:10:32 05/31/19 23 06/03/2022 METHY LMALO MICHEAL ACID QUANT methylmaloni c acid, serum 184 nmol/ L 0-378 Speci men Comme nt: Test( s) 85132 7-Met hylma lonic Acid, Serum Speci men Comme nt: was devel oped and its perfo rmanc e wally cte risti cs Speci men Comme nt: deter mined by [facility] rp. It has not been don ared or appro sharyn Speci men Comme nt: by the Food and Drug Admin istra tion. Perfo rmed at: [facility] [place] [address] [facility] , [place] [address] Lab Direc tor: Mylene avila MD, Phone : [phone] Not Available [facility] ([facility]) [address] [facility], [place], [address], 06/03/2022 13:11:24 08/10/19 23 08/09/2022 drug scree n, urine Amphetamines negati ve Not Available [facility] [address] [facility] [address], [place], [address], 08/09/2022 11:50:12 0608/09/2022 drug scree n, urine Barbiturates negati ve Not Available [facility] [address], [place], [address], 08/09/2022 11:50:12 08/10/19 23 08/09/2022 drug scree n, urine Buprenorphin e negati ve Not Available [facility] [address], [place], [address], 08/09/2022 11:50:12 08/10/19 23 08/09/2022 drug scree n, urine Benzodiazepi gasper negati ve Not Available [facility] [address], [place], [address], 08/09/2022 11:50:12 08/10/19 23 08/09/2022 drug scree n, urine Cocaine negati ve Not Available [facility] [address], [place], [address], 08/09/2022 11:50:12 08/10/19 23 08/09/2022 drug scree n, urine Methamphetam ine negati ve Not Available [facility] [address], [place], [address], 08/09/2022 11:50:12 08/10/19 23 08/09/2022 drug scree n, urine Ecstasy negati ve Not Available [facility] [address], [place], [address], 08/09/2022 11:50:12 08/10/19 23 08/09/2022 drug scree n, urine Methadone negati ve Not Available [facility] [facility] [address], [place], [address], 08/09/2022 11:50:12 08/10/19 23 08/09/2022 drug scree n, urine Morphine/ Opiates negati ve Not Available [facility] [address] [facility] [address], [place], [address], 08/09/2022 11:50:12 08/10/19 23 08/09/2022 drug scree n, urine Phencyclidin e negati ve Not Available [facility] [address] [facility] [address], [place], [address], 08/09/2022 11:50:12 08/10/19 23 08/09/2022 drug scree n, urine Oxycodone negati ve Not Available [facility] [address] [facility] [address], [place], [address], 08/09/2022 11:50:12 08/10/19 23 08/09/2022 drug scree n, urine Marijuana negati ve Not Available [facility] [address] [facility] [address], [place], [address], 08/09/2022 11:50:12 05/26/19 23 02/08/2022 imagi ng/di agnos tic resul t No observ ation record ed. [email or web address] [facility] [address], [place], [address], 05/25/2022 15:46:39 06/04/19 23 06/03/2022 RF, small bowel , w/ contr ast PO [facility] [address] [place] [address] Phone: Fax: Name: VERNELL ANTHONY Exam Date: 06/04/19 23 : 957 Age 66 Gender : F Access ion: [id number] Physic brenda: ZACH SETHI ty: [facility] Facili ty HSV: Outpat ient Exam: SMALL BOWEL SERIES Small bowel follow -throu gh HISTOR Y: Iron defici ency anemia . PROCED URE: The patien t ingest ed barium . Spot and overhe ad films were obtain ed. FINDIN GS: The wool tamper film is unrema rkable . On the immedi ate image there appear s to be a small hiatal hernia presen t. The transi t time to the colon is normal . The mucosa l fold patter n is normal . Spot images of the termin al ileum are unrema rkable . IMPRES TEREZA: Normal small bowel follow -throu gh Flouro scopy time: 55 second s Number of images : 8 The films were review ed, interp reted, and dictat ed by Dr. Kristin Canada Transc ribed by Vinod Michaud PA-C Dictat ed By: KRISTIN CANADA Transc ribed By: Kristin Canada Transc ribed On: 06/04/19 10:15 AM Electr onical ly signed by: KRISTIN CANADA 06/04/19 Thank you for referr VERNELL Haney to [facility]. Legall y authen ticate d by POPE KRISTIN Vázquez 06-03 10:15: 34 CC'ed Logic: Orderi ng Provid er: RODDY CHURCH Attend ing Provid er: RODDY CHURCH Referr ing Provid er: RODDY CHURCH Admitt ing Provid er: RODDY CHURCH [email or web address] [facility] [address], [place], [address], 06/03/2022 14:05:27 Result Notes None recorded. Problems Name Problem SNOMED Code Status Onset Date Resolution Date Notes Provider Name and Address Organization Details Recorded Time Iron deficienc y anemia 97548289 Active 2022 Zach Sethi PA-C [address], [place], [address] , [facility] & [place] 3 16:29:06 Chest wall pain 193257851 Active Kimmie hoang, [facility] 3 09:58:40 History of bariatric surgical procedure 386622195 Active Kimmie Benavides null, [place] [facility] [place] & [place] 3 09:58:40 Congestiv e heart failure 33047101 Active 2022 Kimmie Benavides [place], [place] & [place] 3 12:27:21 Arthritis 6902955 Active 2022 Kimmie Benavides [place] & [place] 3 12:27:34 History of deep vein thrombosi s 779533131 Active 2022 Chronic DVT Left Leg on anticoagu lant Eliquis Kimmie Benavides [place], [place] & [place] 3 12:29:11 Lymphedem a 240184895 Active 2022 Kimmiemaryjo Benavides [place] & [place] 3 12:29:03 Diabetes mellitus 48876149 Active 2022 Kimmie Benavides [place] & [place] 3 12:29:42 Gastroeso phageal reflux disease 493205315 Active 2022 Kimmie [place]avides [place] & [place] 3 12:30:01 Headache 02777665 Active 2022 Kimmiemaryjo [place]avides [place] & [place] 3 12:30:41 Syncope 063921385 Active 2022 Kimmie Benavides [place] & [place] 3 12:30:52 Dizziness 459621526 Active 2022 Kimmiemaryjo [place]ides [place] & [place] 3 12:31:01 Abnormal vision 0842785 Active 2022 Kimmiemaryjo [place]ides [place] & [place] 3 12:31:23 Pain of joint 26541370 Active 2022 Kimmiemaryjo [place] & [place] 3 12:31:34 Anxiety 86442573 Active 2022 Kimmie Benavides [place] - & [place] 3 12:31:47 History of depressio n 226962713 Active 2022 Kimmie [place]avides [place] - & [place] 3 12:32:00 Nasal congestio n 72737897 Active 2022 Kimmie [place]avides [place] - & [place] 3 12:32:20 Swallowin g problem 592300582 Active 2022 Kimmie Benavides [place] - & [place] 3 12:32:38 Chronic obstructi ve pulmonary disease 32165986 Active 2022 Pilar Goodman MD [address], [place], [address] , [place] [facility] - & [place] 3 13:47:26 Dyspnea on exertion 45895348 Active 2022 Pilar Goodman MD [address] [facility], [place], [address] , [place] [facility] - & [place] 3 13:47:41 Tobacco dependenc e caused by cigarette s 42071287110 573577 Active 2022 Pilar Goodman MD [address], [place], [address] , [place] [facility] - & [place] 3 13:47:50 Spinal stenosis of lumbar region 69327391 Active 2022 Ediemark Lott null, [place] [facility] - & [place] 3 10:57:09 Nicotine dependenc e 65549792 Active 2022 Edie Lott [place], [place] [facility] - & [place] 3 10:57:16 Pain in bilateral legs 86336123608 272499 Active 2022 Edie Lott [place], [place] [facility] - & [place] 3 10:57:17 Problem Notes None recorded. Procedures Surgical History Date Name Laterality Status Provider Name and Address Organization Details Recorded Time 09/28/19 21 implantation of insertable loop recorder completed Kimmie Razo [facility] & [place] 05/25/2022 12:15:18 02/27/19 16 bariatric operative procedure completed Kimmie Razo [facility] & [place] 05/25/2022 12:14:19 hysterectomy completed Edie KHAN [facility] & [place] 08/09/2022 10:22:41 Imaging Results None recorded. Procedure Notes None recorded. Medical Equipment None Reported. Allergies Allergen ID Allergen Name Allergen Category Reaction Reaction Severity Criticality Documentation Date Start Date Code Code System Note Provider Name and Address Organization Details Recorded Time 24092 Product containin g penicilli n (product) medicatio n Not available Not available Not available 05/25/2022 55436 8001 SNOMED Other react ions and sever ities : 'Adve rse react ion to subst ance' . ERIN [facility] 3 09:59:14 31300 hydrocodo ne Not available Not available Not available Not available 05/25/2022 5489 RxNorm Other react ions and sever ities : 'Adve rse react ion to subst ance' . ERIN Holland [facility] & [place] 3 12:06:31 62963 vancomyci n medicatio n rash severe Not available 05/25/2022 59167 RxNorm repor ts swell ing, rash, cough diffi cult breat ronnie Xander Liono n ERIN hoang [facility] & [place] 3 13:30:35 49254 Zosyn medicatio n dyspnea severe Not available 05/25/2022 68932 RxNorm repor ts swell ing, rash, cough diffi cult breat ronnie Xander Williamso n ERIN hoang [facility] & [place] 3 13:30:35 54799 acetamino phen / hydrocodo ne medicatio n cough itching severe moderate Not available 06/15/2022 09447 2 RxNorm Xander Lionnas cain natalya, [place] - [facility] - [place] & [place] 3 13:30:35 Medications Name Sig Start Date Stop Date Status Note LastModified by Organization Details LastModified Time acetaminoph en 500mg tab TAKE 1 TABLET BY MOUTH EVERY 4 TO 6 HOURS NEEDED active Not Available Not Available No t Available furosemide 10 mg/mL injection solution 80 mg by injection route. 05/09 completed Not Available Not Available Not Available metformin 500 mg tablet TAKE 1 TABLET BY MOUTH TWICE DAILY WITH MORNING MEAL AND WITH EVENING MEAL active Not Available Not Available No t Available atorvastati n 80 mg tablet TAKE 1 TABLET BY MOUTH ONCE DAILY active Not Available Not Available No t Available gabapentin 600 mg tablet TAKE 1 TABLET BY MOUTH THREE TIMES DAILY active Not Available Not Available No t Available doxycycline hyclate 100 mg capsule TAKE 1 CAPSULE BY MOUTH ONCE DAILY FOR 10 DAYS 08/12 completed Not Available Not Available Not Available atorvastati n 20 mg tablet TAKE 1 TABLET BY MOUTH ONCE DAILY active Not Available Not Available No t Available ipratropium 0.5 mg-albutero l 3 mg (2.5 mg base)/3 mL nebulizatio n soln Inhale 3 mL 4 times a day by nebulizat ion route for 30 days. active Not Available Not Available No t Available Venofer 100 mg iron/5 mL intravenous solution 300 mg by intraven. route. 05/09 completed Not Available Not Available Not Available tizanidine 4 mg tablet TAKE 1 TABLET BY MOUTH EVERY 6 TO 8 HOURS NEEDED NOT TO EXCEED 3 DOSES IN 24 HOURS active Not Available Not Available No t Available Diprivan 10 mg/mL intravenous emulsion 500 mg by intraven. route. 05/11 completed Not Available Not Available Not Available lactated Ringers intravenous solution 1000 mL by intraven. route. 05/10 completed Not Available Not Available Not Available sulfamethox azole 800 mg-trimetho prim 160 mg tablet TAKE 1 TABLET BY MOUTH EVERY 12 HOURS 11/22 completed Not Available Not Available Not Available omeprazole 40 mg capsule,del ayed release TAKE 1 CAPSULE BY MOUTH ONCE DAILY BEFORE A MEAL active Not Available Not Available No t Available aspirin 81 mg tablet,sanjay yed release TAKE 1 TABLET BY MOUTH ONCE DAILY active Not Available Not Available No t Available acetaminoph en 500 mg tablet 1000 mg by oral route. 05/11 completed Not Available Not Available Not Available potassium chloride 10 mEq/100mL in sterile water intravenous piggyback 1 milliequi valent by intraven. route. 05/11 completed Not Available Not Available Not Available potassium chloride ER 20 mEq tablet,exte nded release(par t/cryst) 1 milliequi valent by oral route. 05/11 completed Not Available Not Available Not Available magnesium oxide 400 mg (241.3 mg magnesium) tablet 1 mg by oral route. 05/11 completed Not Available Not Available Not Available Protonix 40 mg intravenous solution 40 mg by intraven. route. 05/08 completed Not Available Not Available Not Available cephalexin 500 mg capsule TAKE 1 CAPSULE BY MOUTH EVERY 6 HOURS FOR 10 DAYS 11/22 completed Not Available Not Available Not Available pantoprazol e 40 mg tablet,sanjay yed release 40 mg by oral route. 05/11 completed Not Available Not Available Not Available promethazin e 25 mg/mL injection solution 12.5 mg by injection route. 05/11 completed Not Available Not Available Not Available losartan 25 mg tablet TAKE 1 TABLET BY MOUTH ONCE DAILY active Not Available Not Available No t Available nicotine 21 mg/24 hr daily transdermal patch Apply 1 pat by transderm . route. 06/15 completed Not Available Not Available Not Available gabapentin 300 mg capsule 600 mg by oral route. 05/11 completed Not Available Not Available Not Available omeprazole 20 mg capsule,del ayed release Take 20 mg by oral route. 08/12 completed Not Available Not Available Not Available montelukast 10 mg tablet TAKE 1 TABLET BY MOUTH ONCE DAILY IN THE EVENING active Not Available Not Available No t Available hydroxyzine HCl 25 mg tablet TAKE 1 TABLET BY MOUTH TWICE DAILY active Not Available Not Available No t Available furosemide 20 mg tablet TAKE 1 TABLET BY MOUTH ONCE DAILY active Not Available Not Available No t Available lidocaine HCl 20 mg/mL (2 %) injection solution 2 mL by injection route. 05/11 completed Not Available Not Available Not Available sodium chloride 0.9 % intravenous solution 1000 mL by intraven. route. 05/09 completed Not Available Not Available Not Available metoprolol succinate ER 25 mg tablet,exte nded release 24 hr TAKE 1 TABLET BY MOUTH ONCE DAILY active Not Available Not Available No t Available ergocalcife rol (vitamin D2) 1,250 mcg (50,000 unit) capsule Take 64986 unts by oral route. 11/22 completed Not Available Not Available Not Available sodium ferric gluconate complex in sucrose 62.5 mg/5 mL intravenous 125 mg by intraven. route. 05/11 completed Not Available Not Available Not Available zolpidem 10 mg tablet TAKE 1 TABLET BY MOUTH ONCE DAILY AT BEDTIME NEEDED active Not Available Not Available No t Available albuterol sulfate HFA 90 mcg/actuati on aerosol inhaler INHALE 2 PUFFS BY MOUTH EVERY 4 TO 6 HOURS NEEDED active Not Available Not Available No t Available ondansetron 4 mg disintegrat ing tablet 4 mg by oral route. 05/11 completed Not Available Not Available Not Available losartan 100 mg tablet TAKE 1 TABLET BY MOUTH ONCE DAILY active Not Available Not Available No t Available metoprolol tartrate 5 mg/5 mL intravenous solution 5 mg by intraven. route. 05/11 completed Not Available Not Available Not Available oxycodone 5 mg tablet TAKE 2 TABLETS BY MOUTH EVERY 4 TO 6 HOURS active Not Available Not Available No t Available sodium chloride 0.9 % (flush) injection syringe 10 mL by injection route. 05/09 completed Not Available Not Available Not Available valsartan 40 mg tablet 40 mg by oral route. 05/09 completed Not Available Not Available Not Available Phos-NaK 280 mg-160 mg-250 mg oral powder packet 1 pkt by oral route. 05/11 completed Not Available Not Available Not Available Mag-Al Plus Extra Strength 400 mg-400 mg-40 mg/5 mL oral suspension 30 mL by oral route. 05/11 completed Not Available Not Available Not Available duloxetine 30 mg capsule,del ayed release TAKE 1 CAPSULE BY MOUTH ONCE DAILY active Not Available Not Available No t Available chlorhexidi ne gluconate 0.12 % mouthwash RINSE WITH 15ML (1 CAPFUL) FOR 30 SECONDS AND SPIT, USE TWICE DAILY (MORNING AND EVENING) AFTER BRUSHING DO NOT SWALLOW active Not Available Not Available No t Available sodium chloride 0.9 % intravenous piggyback 250 mL by intraven. route. 05/09 completed Not Available Not Available Not Available MoviPrep 100 gram-7.5 gram-2.691 gram oral powder packet 1 bot by oral route. 05/09 completed Not Available Not Available Not Available ondansetron HCl (PF) 4 mg/2 mL injection solution 4 mg by injection route. 05/08 completed Not Available Not Available Not Available FeroSul 325 mg (65 mg iron) tablet TAKE 1 TABLET BY MOUTH EVERY OTHER DAY active Not Available Not Available No t Available Effer-K 20 mEq effervescen t tablet 1 milliequi valent by oral route. 05/11 completed Not Available Not Available Not Available magnesium sulfate 2 gram/50 mL (4 %) in water intravenous piggyback 1 g by intraven. route. 05/11 completed Not Available Not Available Not Available magnesium sulfate 1 gram/100 mL in dextrose 5 % intravenous piggyback 1 g by intraven. route. 05/08 completed Not Available Not Available Not Available oxycodone 10 mg tablet Take 10 mg by oral route. 08/12 completed Not Available Not Available Not Available cholecalcif davey (vitamin D3) 125 mcg (5,000 unit) tablet TAKE 1 TABLET BY MOUTH ONCE DAILY active Not Available Not Available No t Available HealthyLax 17 gram oral powder packet 17 g by oral route. 05/11 completed Not Available Not Available Not Available Eliquis 5 mg tablet TAKE 1 TABLET BY MOUTH TWICE DAILY active Not Available Not Available No t Available Breo Ellipta 100 mcg-25 mcg/dose powder for inhalation Inhale 1 inhalatio n by inhalatio n route. 11/22 completed Not Available Not Available Not Available potassium chloride ER 20 mEq tablet,exte nded release TAKE 1 TABLET BY MOUTH ONCE DAILY active Not Available Not Available No t Available morphine 2 mg/mL intravenous syringe 2 mg by intraven. route. 05/08 completed Not Available Not Available Not Available ivermectin 1 % topical cream Apply by topical route for 30 days. 11/22 completed Not Available Not Available Not Available Bevespi Aerosphere 9 mcg-4.8 mcg HFA aerosol inhaler INHALE TWO PUFFS BY MOUTH TWICE DAILY active Not Available Not Available No t Available Breztri Aerosphere 160 mcg-9mcg-4. 8mcg/actuat ion HFA aerosol inhaler INHALE 2 PUFFS TWICE DAILY active Not Available Not Available No t Available Vitals Date Recorded Body height Body mass index (BMI) Body weight Body temperature Oxygen saturation Oxygen saturation in Arterial blood by Pulse oximetry Heart rate Systolic blood pressure Diastolic blood pressure Provider Name and Address Organization Details Last Updated DateTime 3 160.02 cm 40.4 kg/m2 829505. 06 g 98 [degF] 93 % 93 % 77 /min 128 mm[Hg] 70 mm[Hg] Xander cain [place] - [facility] & [place] 3 13:24:56 Date Recorded Body height Body mass index (BMI) Body weight Body temperature Oxygen saturation Oxygen saturation in Arterial blood by Pulse oximetry Heart rate Systolic blood pressure Diastolic blood pressure Provider Name and Address Organization Details Last Updated DateTime 3 157.48 cm 39.1 kg/m2 26844.7 7 g 98.4 [degF] 97 % 97 % 84 /min 177 mm[Hg] 79 mm[Hg] Edie Lott [place] - [facility] [facility] & [place] 3 10:25:27 Date Recorded Body height Body mass index (BMI) Body weight Body temperature Oxygen saturation Oxygen saturation in Arterial blood by Pulse oximetry Heart rate Systolic blood pressure Diastolic blood pressure Provider Name and Address Organization Details Last Updated DateTime 3 157.48 cm 39.6 kg/m2 77349.7 5 g 98.1 [degF] 84 % 84 % 60 /min 143 mm[Hg] 76 mm[Hg] Shayy Torre [facility] & [place] 3 10:09:03 Date Recorded Body height Body mass index (BMI) Body weight Oxygen saturation Oxygen saturation in Arterial blood by Pulse oximetry Heart rate Systolic blood pressure Diastolic blood pressure Provider Name and Address Organization Details Last Updated DateTime 3 157.48 cm 37.8 kg/m2 71597.4 7 g 90 % 90 % 80 /min 104 mm[Hg] 68 mm[Hg] Kira Barrera [facility] & [place] 3 13:17:38 Date Recorded Body height Body mass index (BMI) Body weight Body temperature Oxygen saturation Oxygen saturation in Arterial blood by Pulse oximetry Heart rate Systolic blood pressure Diastolic blood pressure Provider Name and Address Organization Details Last Updated DateTime 3 157.48 cm 37.1 kg/m2 13925.2 5 g 97.3 [degF] 99 % 99 % 87 /min 155 mm[Hg] 71 mm[Hg] Shannan Tamaraabhijeet [facility] & [place] 3 09:26:50 Social History Question Answer Notes LastModified by Organizat ion Details LastModified Time Tobacco Smoking Status Current Every Day Smoker Kimmie Benavides [facility] & [place] 05/25/2022 12:11:36 How Many Years Have You Consumed Alcohol? 40 [email or web address] Information not available 06/15/2022 What Is Your Level Of Caffeine Consumption? Heavy Patient Drinks 50 Ounces Of Caffeinated Drinks Per Day [email or web address] Information not available 06/15/2022 What Type Of Diet Are You Following? REGULAR [email or web address] Information not available 06/15/2022 How Many Days Of Moderate To Strenuous Exercise, Like A Brisk Walk, Did You Do In The Last 7 Days? 0 [email or web address] Information not available 06/15/2022 Have There Been Any Changes To Your Family Or Social Situation? No [email or web address] Information not available 06/15/2022 What Was The Date Of Your Most Recent Tobacco Screening? 05/25/2022 [email or web address] Information not available 05/25/2022 What Is Your Current Pack Years? 30ormorepac cories [email or web address] Information not available 06/15/2022 How Much Tobacco Do You Smoke? 1 PPD [email or web address] Information not available 05/25/2022 Has Tobacco Cessation Counseling Been Provided? No [email or web address] Information not available 06/15/2022 How Many Years Have You Smoked Tobacco? 50 [email or web address] Information not available 05/25/2022 How Many Days In The Past Year Have You Consumed 4 Or More Drinks? 1 [email or web address] Information not available 06/15/2022 Sex: Unknown Functional Status Question Answer Note LastModified by [email or web address] ion Details LastModified Time Do you use any illicit or recreational drugs? No Information not available 05/25/2022 Do you or have you ever used any other forms of tobacco or nicotine? No [email or web address] Information not available 06/15/2022 What is your level of alcohol consumption? Occasional Information not available 05/25/2022 What is your exercise level? None [email or web address] Information not available 05/25/2022 Mental Status None recorded. Family History Relationship Description Onset Age of this Age Resolved Age Notes LastModified by Organization Details LastModified Time Mother Hypertensive disorder [email or web address] Not available 04/28 12:33:43 Mother Hypercholest erolemia [email or web address] Not available 04/28 12:34:37 Mother Deep venous thrombosis [email or web address] Not available 05/28 13:16:13 Mother Disorder of endocrine system pt. added direct ly (06/09) [email or web address] Not available 06/09/2022 09:50:12 Mother Diabetes mellitus [email or web address] Not available 08/09 10:21:48 Father Suspected prostate cancer [email or web address] Not available 08/09 10:22:07 Medical History Condition Response Ear or Hearing Problems Y COPD Y Depression Y Swelling Y Clotting Disorder Y Anemia Y Chest Pain Y Deep Vein Thrombosis Y Diabetes Y Obesity Y Vision or Eye Problems Y Arthritis Y Congestive Heart Failure (CHF) Y Back Problems Y Shortness of Breath Y Reflux/GERD Y High Cholesterol Y Headaches Y Hypertension Y Gynecological HistoryNo gynecological history recorded. Obstetrics History GPAL:G 0 P 0 0 0 0 Past Encounters Encounter ID Performer Location Encounter Start Date Encounter Closed Date Diagnosis/Indication Diagnosis SNOMED-CT Code Diagnosis ICD10 Code Diagnosis Note [id number] YURIY NIETO [facility] [address] [facility] [address] [place] [address] 05/25/2022 10:06:05 05/26/2022 12:12:33 Chronic acquired lymphedema 62409485 I89.[facility] [place] Chronic de ep venous thrombosis of left lower extremity 3558800840 71769 I82.502 On Eliquis Hyperlipidemia 73977724 E78.5 on Atorvastat in Essential hypertension 68909488 I10 Suboptimal control Obstructiv e sleep apnea syndrome 04351854 G47.33 not using a cpap Syncope and collapse 309 862273 R55 Loop recorder placed September 2020 in [place] Chronic di astolic heart failure 007524215 I50.32 On Lasix 20mg daily with some improvemen t History of bariatric surgical procedure 761272091 Z98.84 2016 Anemia 185027035 D64.[address] Palmer Chest wall pain 65420758 6 R07.89 [id number] Sena Rollins PA-C [facility] [address] [facility] [address] [place] [address] 05/30/2022 13:42:43 05/30/2022 14:09:33 Iron deficiency anemia 51946453 D50.9 Patient presented to the ED on May 08, 2022 with severe iron deficiency anemia. Labs on May 08, 2022 with microcytic anemia with hemoglobin 5.1. Serum iron 12 and iron saturation 3%. Reticulocy te count 1.6%. No evidence of splenomega ly on imaging. She received 3 units of PRBCs and IV iron. Patient denies any bleeding. Occult stool negative. EGD and colonoscop y performed on May 10, 2022 without signs of blood loss. Single polyp removed and will follow-up pathology. Will follow-up any gastric sampling. Patient with prior history of sleeve gastrectom y in 2016. Patient denies any complaints at this time. Will follow-up labs today. Will follow-up response to infusional iron therapy. Will notify patient if additional iron is required at this time. Anemia 519309161 D64.9 Patient presented to the ED on May 08, 2022 with severe iron deficiency anemia. Labs on May 08, 2022 with microcytic anemia with hemoglobin 5.1. Serum iron 12 and iron saturation 3%. Reticulocy te count 1.6%. No evidence of splenomega ly on imaging. She received 3 units of PRBCs and IV iron. Patient denies any bleeding. Occult stool negative. EGD and colonoscop y performed on May 10, 2022 without signs of blood loss. Single polyp removed and will follow-up pathology. Will follow-up any gastric sampling. Patient with prior history of sleeve gastrectom y in 2016. Patient's father had prostate cancer and her mother had lung cancer. No other family history of malignancy . Patient denies any complaints at this time. Will follow-up labs today. Will follow-up response to infusional iron therapy. Will notify patient if additional iron is required at this time. History of bariatric surgical procedure [id number] Z98.84 Patient with prior history of sleeve gastrectom y in 2016. Pediculosis capitis 8100 0006 B85.0 Patient with head lice. She is aware. Discussed with patient and her daughter. Offered to send prescripti on for treatment but patient and her daughter states that they have supplies at home and they are planning to treat this week. [id number] Pilar Goodman MD [facility] [address] [facility] [address] [place] [address] 06/15/2022 13:16:00 06/15/2022 13:38:55 Chronic obstructive pulmonary disease [id number] J44.9 Spirometry done in the office today showed evidence of obstructio n with decrease in FEV1 down to 29% predicted and that was reviewed and discussed with the patient and her daughter.S simba patient is unable to use Ellipta devices then will start her on Breztri and continue to follow. Patient instructed to call if there is any new symptoms. Dyspnea on exertion 4420 5117 R06.09 Patient recommende d to exercise as tolerated and will arrange for her to have DuoNeb to use on a p.r.n. basis. Tobacco de pendence caused by cigarettes [id number] 4481596 F17.210 Patient counseled extensivel y to quit smoking and will continue follow this up. Screening for malignant neoplasm of respiratory tract 832981787 Z12.2 The patient has participat ed in a shared decision making session during which potential risk and benefits of LDCT lung cancer screening were discussed. The patient was informed of the importance of adherence to annual screening, impact of comorbidit ies, the ability/wi llingness to undergo diagnosis and treatment. The patient was informed of the importance of smoking cessation and/or maintainin g smoking abstinence , including the offer of Medicare- over tobacco cessation counseling services, if applicable . The patient is asymptomat ic (no symptoms such as fever, chest pain, new shortness of breath, new or changing cough, coughing up blood, or unexplaine d significan t weight loss). [id number] João Palmer MD [facility] [address] [facility] [address] [place] [address] 06/14/2022 09:04:47 06/14/2022 10:48:56 [id number] RUFINO NIETOC [facility] [address] [facility] [address] [place] [address] 06/14/2022 14:12:37 06/14/2022 15:26:38 Chronic acquired lymphedema 53782513 I89.0 [facility] [place] Chronic di astolic heart failure 402067485 I50.32 On Lasix 20mg daily with some improvemen t Chronic de ep venous thrombosis of left lower extremity 8567317965 91100 I82.502 On Eliquis Hyperlipidemia 52179713 E78.5 on Atorvastat in Essential hypertension 38996536 I10 Suboptimal control Obstructiv e sleep apnea syndrome 99017159 G47.33 not using a cpap Syncope and collapse 309 588991 R55 Loop recorder placed September 2020 in [place] History of bariatric surgical procedure 116309626 Z98.84 2016 Anemia 912255590 D64.[address] Parsons the GI camera that finishes today. Chest wall pain 05419523 6 R07.89 [id number] MOISES SIMMONS PA-C [facility] [address] [facility],[address] [place] [address] 08/09/2022 09:56:38 08/09/2022 11:33:17 Spinal stenosis of lumbar region 46135742 M99.53 Opioid dependence 620902 00 F11.20 Nicotine dependence 5629 4008 F17.200 Pain in bi lateral legs 9143624094 3025036 M79.604 M79.605 History of deep vein thrombosis 332798925 Z86.718 [id number] Zach Sethi PA-C [facility] [address] [place] [address] 08/12/2022 09:58:42 08/12/2022 10:29:46 Iron deficiency anemia 07415597 D50.9 History of polyp of colon 842241768 Z86.010 History of sleeve gastrectomy 1638544175 92345 Z90.3 [id number] YURIY NIETO [facility] [address] [facility] [address] [place] [address] 09/20/2022 12:56:42 09/20/2022 13:39:45 Chronic acquired lymphedema 01307208 I89.0 [facility] [place] [phone] 68Stable SUE Chronic di astolic heart failure 853219857 I50.32 On Lasix 20mg daily with some improvemen t 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 Obstructiv e sleep apnea syndrome 07976633 G47.33 not using a cpap Syncope and collapse 309 655973 R55 Loop recorder placed September 2020 in [place] History of bariatric surgical procedure 439637371 Z98.84 2016 Anemia 600976480 D64.[address] Parsons the GI camera that finishes today. Chest wall pain 56241367 6 R07.89 No recent chest pain [id number] Maximiliano Wilson MD [facility] [address] [facility],[address] [place] [address] 11/22/2022 09:14:15 11/22/2022 10:04:55 Spinal stenosis of lumbar region 15010117 M99.53 Nicotine dependence 5629 4008 F17.200 Pain in bi lateral legs 1715358930 8801093 M79.604 M79.605 History of deep vein thrombosis 645337890 Z86.718 Health Concerns Section Related Observation LastModified by Organization Detai ls LastModified Time None Recorded Concern Status LastModified by Organization Details LastModified Time None Recorded Advance Directives Directive None Recorded Payers Insurance Date Sequence Insurance Name Policy Number Policy Stevens Covered Member ID Stevens Member ID Guarantor Name 12/12/2022 3 [facility] JOJO Anthony [id number] Josephine Anthony 12/12/2022 2 [place] [employer] [place] - FFS/TRADITION AL Josephine Anthony [id number] Josephine Anthony 03/17/2023 1 [facility] (MEDICARE REPLACEMENT/A DVANTAGE - HMO) JOJO Anthony [id number] Josephine Anthony Notes Date Note Type Note Provider Name and Address Organization Details Recorded Time 3 text/html Patient presents to the office today for hospital follow-up visit. Patient states that her condition improved but not completely back to her baseline. Apparently she is not using inhalers at home. She has nebulizer without the medicine and she stopped using her Breo due to difficulty coordinating. She reports shortness breath at rest and dyspnea on exertion grade 3 on M MRC dyspnea scale. She denies fever, chills or diaphoresis. No chest pain, angina or palpitation. No PND or orthopnea. Patient denies wheezing or hemoptysis. Patient denies significant change in her weight or appetite. Patient continues to smoke regularly. Pilar Goodman MD [address], [place], [address], [facility] [place] & [place] 06/15/2022 14:37:14 3 text/html This is a patient here today with her daughter referred by [facility], HUBERT Yousif For management of chronic pain and medication. She is here with complaints of back pain and bilateral lower extremity pain. She reports pain for many years. 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 She complains of increased low back pain and leg pain with standing, walking with pain that is aching burning throbbing shooting. She has been on oxycodone 10 mg 4 times a day for approximately 8 years. He was most recently prescribed by Dr. Godoy and Jeniffer but he has discontinued prescribing it. she has had no prior interventions. She has no recent imaging. Onset: 10+ yearsContext: progressively worseningCharacter: aching, throbbing, sharp, burningLocation:, low back bilateral lower extremitiesDuration: constant with flaresIntensity: 8/10Worse: standing, walkingBetter: rest Associated symptoms: Denies saddle anaesthesia, denies acute bowel/bladder changes, denies acute power loss. ADLs: The patient's pain interferes with daily chores, exercise, sleep, relationships, and walking. Current Pain Medications: oxycodone 10 mg Q 6 hoursPrior Pain Medications:NSAIDS/OTC: noneNon-interventional Tx: nonePhysical Therapy: distant pastInterventional Tx: noneSurgery: noneImaging/Studies: none MOISES SIMMONS PA-C [address] [facility], [place], [address], [facility] [place] [facility] [place] 08/12/2022 07:25:23 3 text/html Very pleasant 66-year-old female who presents to the office today for PillCam follow-up. The patient was admitted in April with severe anemia with hemoglobin 5.2, nichole 4.8, improved to 8.2 after transfusion of 3 units of blood. She underwent EGD and colonoscopy for evaluation on May 10, 2022. EGD was normal with normal post sleeve gastrectomy anatomy. One adenomatous polyp was resected on colonoscopy and hemostasis clip was placed. She underwent pill endoscopy on June 14, 2022 that showed no source of blood loss or stigmata for bleeding. She has since established care with Hematology for infusional iron therapy. She has had gradual improvement with H&H. She reports feeling well overall at this time. She is currently on oral iron supplementation per her PCP. She denies signs of GI blood loss. Occult stool have been negative. Zach Sethi PA-C [address] [facility], [place], [address], [place] [facility] & [place] 08/12/2022 10:36:57 3 text/html Patient is a pleasant 66 year old who presents as a follow up CHF.PCP: Rita Harkins has lymphedema and is seeing wound care [facility]. She has had improvement in her right leg and is being fitted for a leg sleeve for her left leg. She has not received her sleeves. She has chronic DVT and is on Eliquis.She reports improved SUE. She had recent Ashley and echo in 2021 at [facility]. Those records have been reviewed. She denies CP or syncope. She is tolerating the Metoprolol and BP seems to be in better control. She is a 1 pk a day smoker. Discussed the benefits of quitting smoking. She is being evaluated by neurology for her syncope episodes. +DVT+lymphedema+Hyperli pidemia+HTN+ADA intolerant to Cpap+Anemia RUFINO NIETOC [address] [facility], [place], [address], [place] - [facility] & [place] 09/20/2022 13:38:33 3 text/html This is a patient here today with her daughter referred by [facility], HUBERT Yousif For management of chronic pain and medication. She is here with complaints of back pain and bilateral lower extremity pain. She reports pain for many years. 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 She complains of increased low back pain and leg pain with standing, walking with pain that is aching burning throbbing shooting. She has been on oxycodone 10 mg 4 times a day for approximately 8 years. He was most recently prescribed by Dr. Godoy and Jeniffer but he has discontinued prescribing it. she has had no prior interventions. She has no recent imaging. Patient returns today with her daughter after a 3 months absence. At last visit, she was scheduled for [facility], however, cancelled due to lack of transportation. She continues to complain of low back pain with LLE pain worse at night. She has lymphedema in the left leg and is seen at a lymphedema clinic at [facility]. Patient is currently taking gabapentin 600 mg tid, tizanidine 4mg tid for her pain. 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 Patient has been on Eliquis manager long term care with history of DVT. She is diabetic with A1C 5.7. Onset: 10+ yearsContext: progressively worseningCharacter: aching, throbbing, sharp, burningLocation:, low back bilateral lower extremitiesDuration: constant with flaresIntensity: 8/10Worse: standing, walkingBetter: rest Associated symptoms: Denies saddle anaesthesia, denies acute bowel/bladder changes, denies acute power loss. ADLs: The patient's pain interferes with daily chores, exercise, sleep, relationships, and walking. Current Pain Medications: oxycodone 10 mg Q 6 hoursPrior Pain Medications:NSAIDS/OTC: noneNon-interventional Tx: nonePhysical Therapy: distant pastInterventional Tx: noneSurgery: noneImaging/Studies: none Maximiliano Wilson MD [address] [facility], [place], [address], [facility] [place] & [place] 11/25/2022 11:29:40 OBGyn Episode No OBEpisode recorded.
--- NOTE | 2024-08-19 13:00 | CT_ITS ---
FINAL REPORT TECHNIQUE: Axial CT without IV contrast administration. Coronal and sagittal images were obtained and reviewed. This study was performed with techniques to keep radiation doses as low as reasonably achievable, (ALARA). Individualized dose reduction techniques using automated exposure control or adjustment of mA and/or kV according to the patient''s size were employed. CLINICAL HISTORY: Nodule COMPARISON: CT low-dose 03/23/2023 FINDINGS: There is a small area of scarring in the medial right lung apex measuring up to 5 mm on image 43 of series 3, previously measured up to 11 mm. Linear nodular area in the posterior right lower lobe on image 139 of series 3 measures 13 x 5 mm and previously measured 21 x 9 mm. Given interval size reduction these are considered benign and postinflammatory in nature. No new pulmonary densities identified. There is mild bronchial wall thickening in the lower lobes. No pleural or pericardial effusion is seen. No adenopathy or mass lesion is present. Small hiatal hernia. IMPRESSION: Improved right lung pulmonary opacities considered benign and postinflammatory in nature. Reviewed, Interpreted and Dictated by Willow Young MD Transcribed by Sophie Salcedo Authenticated and [facility]
== END 2024-08-19 23:59 | disposition home or self-care (01) ==
LOC: RAD 12:50
PROVIDERS: PCP Nurse Practitioner Family; Visit Provider Internal Medicine Pulmonary Disease
DX: R91.8 Other nonspecific abnormal finding of lung field (principal); K44.9 Diaphragmatic hernia without obstruction or gangrene; J98.4 Other disorders of lung
CPT/HCPCS: 71250

== ENCOUNTER 2024-08-23 15:00 | Outpatient (RCR) | payer MEDICARE, MEDICAID, SELFPAY | END 2024-08-23 23:59 | disposition home or self-care (01) | LOC: PT 15:00 | PROVIDERS: PCP Nurse Practitioner Family; Visit Provider Nurse Practitioner Family | DX: L04.3 Acute lymphadenitis of lower limb (principal) | CPT/HCPCS: 29580; 97164; 97597; 97598 ==

== ENCOUNTER 2024-09-26 16:00 | Outpatient (RCR) | payer MEDICARE, MEDICAID, SELFPAY | END 2024-09-26 23:59 | disposition home or self-care (01) | LOC: PT 16:00 | PROVIDERS: PCP Nurse Practitioner Family; Visit Provider Nurse Practitioner Family | DX: L04.3 Acute lymphadenitis of lower limb (principal) | CPT/HCPCS: 97597 ==

== ENCOUNTER 2024-10-08 14:00 | Outpatient (RCR) | payer MEDICARE, MEDICAID, SELFPAY ==
--- NOTE | 2024-10-09 09:46 | SW/DCPLANNER ---
Due to concerns expressed by MANAGER [employer] (Giselle Barrett) for this patient's safety I did make a report to Central Intake. Web ID# [id number].
== END 2024-10-08 23:59 | disposition home or self-care (01) ==
LOC: PT 14:00
PROVIDERS: PCP Nurse Practitioner Family; Visit Provider Nurse Practitioner Family
DX: L04.3 Acute lymphadenitis of lower limb (principal)
CPT/HCPCS: 97597